=== PATIENT | female | born 1945 | race Caucasian/White ===

== ENCOUNTER 2019-06-12 12:00 | Outpatient (CLI) | payer MEDICARE, SELFPAY ==
[2019-06-12 14:01] LABS: Thyroid Stimulating Hormone < 0.015 uIU/mL (0.465-4.680); Total Triiodothyronine (T3) 1.35 NG/ML (0.97-1.69)
[2019-06-12 14:18] LABS: Free T4 Free Thyroxine 1.38 ng/mL (0.78-2.19)
== END 2019-06-12 12:01 | disposition home or self-care (01) ==
PROVIDERS: PCP Family Medicine
DX: R53.83 Other fatigue (principal)
CPT/HCPCS: 36415; 84439; 84443; 84480

== ENCOUNTER 2019-10-29 09:05 | Outpatient (CLI) | payer MEDICARE, SELFPAY ==
[2019-10-29 10:16] LABS: Hematocrit 34.4 % (37.0-47.0); Hemoglobin 10.7 g/dL (12.0-15.0); Mean Corpuscular HGB Conc 31.1 g/dl (32-36); Mean Corpuscular Hemoglobin 23.4 pg (26-34); Mean Corpuscular Volume 75.3 fl (80-100); Mean Platelet Volume 9.9 fl (7.4-10.4); Platelet Count Result 300 k/mm3 (150-375); Red Blood Count 4.57 M/mm3 (4.2-5.4); Red Cell Distribution Width 13.9 % (11.5-14.5)
[2019-10-29 10:34] LABS: Alanine Aminotransferase 12 U/L (4-35); Alkaline Phosphatase 99 U/L (38-126); Aspartate Amino Transferase 16 U/L (14-36); Bilirubin,Total 0.3 mg/dL (0.2-1.3); Blood Urea Nitrogen 18 mg/dL (7-17); Calcium 9.1 mg/dL (8.4-10.2); Carbon Dioxide 29 mmol/L (22-30); Chloride 103 mmol/L (98-107); Estimated Glomerular Filt Rate > 60; Glucose 105 mg/dL (65-105); Lipase 74 U/L (23-300); Potassium 3.9 mmol/L (3.4-5.0); Sodium 138 mmol/L (137-145)
[2019-11-01 04:24] LABS: Triiodothyronine T3 Free 2.7 pg/mL (2.3-4.2)
== END 2019-10-29 09:06 | disposition home or self-care (01) ==
PROVIDERS: Visit Provider Family Medicine
DX: E05.00 Thyrotoxicosis with diffuse goiter without thyrotoxic crisis or storm (principal); R10.9 Unspecified abdominal pain
CPT/HCPCS: 36415; 80053; 83690; 84481; 85027

== ENCOUNTER 2019-11-20 10:32 | Outpatient (CLI) | payer MEDICARE, SELFPAY ==
[2019-11-20 11:42] LABS: Hematocrit 35.9 % (37.0-47.0); Hemoglobin 11.3 g/dL (12.0-15.0); Mean Corpuscular HGB Conc 31.5 g/dl (32-36); Mean Corpuscular Hemoglobin 23.5 pg (26-34); Mean Corpuscular Volume 74.8 fl (80-100); Platelet Count Result 325 k/mm3 (150-375); Red Cell Distribution Width 13.7 % (11.5-14.5)
[2019-11-20 11:52] LABS: Thyroid Stimulating Hormone < 0.015 uIU/mL (0.465-4.680)
[2019-11-20 12:03] LABS: Iron 51 ug/dL (37-170)
[2019-11-20 12:12] LABS: Percent Iron Saturation 13 % (20-50)
[2019-11-20 12:20] LABS: Free T4 Free Thyroxine 1.19 ng/mL (0.78-2.19)
== END 2019-11-20 10:33 | disposition home or self-care (01) ==
PROVIDERS: PCP Family Medicine; Visit Provider Physician Assistant
DX: D64.9 Anemia, unspecified (principal); E05.00 Thyrotoxicosis with diffuse goiter without thyrotoxic crisis or storm
CPT/HCPCS: 36415; 82728; 83540; 83550; 84439; 84443; 85027

== ENCOUNTER 2020-04-03 09:48 | Outpatient (CLI) | payer MEDICARE, SELFPAY ==
[2020-04-03 10:11] LABS: Hemoglobin 11.3 g/dL (12.0-15.0); Mean Corpuscular HGB Conc 31.4 g/dl (32-36); Mean Corpuscular Volume 76.4 fl (80-100); Mean Platelet Volume 9.9 fl (7.4-10.4); Platelet Count Result 304 k/mm3 (150-375); Red Blood Count 4.71 M/mm3 (4.2-5.4); Red Cell Distribution Width 14.3 % (11.5-14.5); White Blood Count 6.6 K/mm3 (4.5-10.0)
[2020-04-03 10:22] LABS: Hemoglobin A1C 5.4 % (<5.7)
[2020-04-03 10:29] LABS: Alanine Aminotransferase 13 U/L (4-35); Albumin Level 3.9 g/dL (3.5-5.1); Alkaline Phosphatase 95 U/L (38-126); Anion Gap 5 mmol/L (8-16); Aspartate Amino Transferase 21 U/L (14-36); Bilirubin,Total 0.3 mg/dL (0.2-1.3); Blood Urea Nitrogen 14 mg/dL (7-17); Calcium 9.3 mg/dL (8.4-10.2); Carbon Dioxide 33 mmol/L (22-30); Chloride 103 mmol/L (98-107); Cholesterol 166 mg/dL (0-200); Estimated Glomerular Filt Rate > 60; Glucose 107 mg/dL (65-105); HDL Direct 27 mg/dL; Lipase 68 U/L (23-300); Sodium 141 mmol/L (137-145); Triglycerides 133 mg/dL (<150)
[2020-04-03 10:40] LABS: LDL Cholesterol Direct 116 mg/dL
[2020-04-03 11:12] LABS: Vitamin D 25 Hydroxy 47.6 ng/mL
[2020-04-03 11:26] LABS: Thyroid Stimulating Hormone Reflex < 0.015 uIU/mL (0.465-4.68)
[2020-04-03 13:04] LABS: Total Triiodothyronine (T3) 1.55 NG/ML (0.97-1.69)
== END 2020-04-03 09:49 | disposition home or self-care (01) ==
PROVIDERS: PCP Family Medicine; Visit Provider Family Medicine
DX: R73.9 Hyperglycemia, unspecified (principal); E78.2 Mixed hyperlipidemia; E05.90 Thyrotoxicosis, unspecified without thyrotoxic crisis or storm; E55.9 Vitamin D deficiency, unspecified; R10.13 Epigastric pain; I10 Essential (primary) hypertension
CPT/HCPCS: 36415; 80053; 80061; 82306; 83036; 83690; 84439; 84443; 84480; 85027

== ENCOUNTER → 2020-04-05 11:10 | Outpatient (CLI) | payer MEDICARE, SELFPAY ==
--- NOTE | ~2020-04-05 | CT_ITS ---
EXAMINATION: CT abdomen pelvis w con DATE: 04/05/2020 11:57 INDICATION: Epigastric pain TECHNIQUE: Computed tomography (CT) of the abdomen and pelvis was performed with 100 cc Omnipaque 350 intravenous contrast. The dose-length product was 1026.72 mGy-cm. Automated exposure control and ite rative reconstruction technique were employed. COMPARISON: CT dated 01/05/2008. FINDINGS: Heart size normal. No significant pleural or pericardial effusion. There is atherosclerosis of the aorta. Fatty infiltration of the liver. There are gallstones. Small hiatal hernia. There are small subcentim eter hypodensities of the right kidney, too small to characterize, although likely benign. Bowel baldemar dora is nonobstructive. Normal appendix. No significant vascular abnormality. No lymphadenopathy. No f ree air or free fluid. There are changes of ventral abdominal wall hernia repair. Moderate lumbar spo ndylosis. No acute osseous abnormality. IMPRESSION: 1. No acute abdominal abnormality. 2: Small hiatal hernia. 3: Cholelithiasis. 4: Hepatic steatosis. Reviewed, dictated and finalized at location A. MACY TECHNICIAN TRAINEE
[2020-04-05 11:42] LABS: Estimated Glomerular Filt Rate > 60
== END ==
PROVIDERS: PCP Family Medicine; Visit Provider Family Medicine
DX: R10.13 Epigastric pain (principal); K44.9 Diaphragmatic hernia without obstruction or gangrene; K80.20 Calculus of gallbladder without cholecystitis without obstruction; K76.0 Fatty (change of) liver, not elsewhere classified; I25.10 Atherosclerotic heart disease of native coronary artery without angina pectoris
CPT/HCPCS: 74177; Q9967

== ENCOUNTER 2020-05-03 10:51 | Outpatient (CLI) | payer MEDICARE, SELFPAY ==
[2020-05-03 12:40] LABS: Thyroid Stimulating Hormone 0.065 uIU/mL (0.465-4.680)
[2020-05-03 12:46] LABS: Free T4 Free Thyroxine 0.97 ng/mL (0.78-2.19)
[2020-05-06 13:58] LABS: Triiodothyronine T3 Free 2.5 pg/mL (2.3-4.2)
== END 2020-05-03 10:52 | disposition home or self-care (01) ==
PROVIDERS: PCP Family Medicine; Visit Provider Internal Medicine Endocrinology, Diabetes & Metabolism
DX: E05.20 Thyrotoxicosis with toxic multinodular goiter without thyrotoxic crisis or storm (principal)
CPT/HCPCS: 36415; 84439; 84443; 84481

== ENCOUNTER 2020-09-01 13:25 | Outpatient (CLI) | payer MEDICARE, SELFPAY ==
[2020-09-01 15:10] LABS: Free T4 Free Thyroxine 0.98 ng/mL (0.78-2.19)
[2020-09-03 16:58] LABS: Thyroid Stimulating Hormone 0.244 uIU/mL (0.465-4.680)
[2020-09-05 08:16] LABS: Triiodothyronine T3 Free 2.9 pg/mL (2.3-4.2)
== END 2020-09-01 13:26 | disposition home or self-care (01) ==
PROVIDERS: PCP Family Medicine; Visit Provider Internal Medicine Endocrinology, Diabetes & Metabolism
DX: R53.83 Other fatigue (principal); E05.20 Thyrotoxicosis with toxic multinodular goiter without thyrotoxic crisis or storm
CPT/HCPCS: 36415; 84439; 84443; 84481

== ENCOUNTER → 2020-10-28 13:34 | Outpatient (CLI) | payer MEDICARE, SELFPAY ==
--- NOTE | ~2020-10-28 | XR_ITS ---
XR chest 2V 10/28/2020 13:52 Indication: Chest pain Procedure: 2 view chest Comparison: No prior studies for comparison. Findings: Heart size is normal. Right lung clear. There is a nodular density in the left lower lung z one near the pleural margin. No focal pneumonia, edema, effusion or pneumothorax. Impression: 1: Nodular density left lower lung zone. Follow-up CT chest recommended. Reviewed, dictated and finalized at location A. Impression: 1: Nodular density left lower lung zone. Follow-up CT chest recommended.
== END ==
PROVIDERS: PCP Family Medicine; Visit Provider Physician Assistant
DX: R05 Cough (principal); R52 Pain, unspecified; R91.8 Other nonspecific abnormal finding of lung field
CPT/HCPCS: 71046

== ENCOUNTER 2020-11-03 07:29 | Outpatient (CLI) | payer MEDICARE, SELFPAY ==
--- NOTE | ~2020-11-03 | CT_ITS ---
EXAMINATION: CT diagnostic chest w con DATE: 11/03/2020 08:43 INDICATION: R93.89 - Abnormal findings on diagnostic imaging of other specified body structures TECHNIQUE: Computed tomography (CT) of the chest was performed with 100 mL Omnipaque-350 intravenous contrast. Additional 3D reconstructions utilizing coronal maximum intensity projection (MIP) were per formed. Automated exposure control and iterative reconstruction technique were employed. The dose-fabrice gth product was 507.90 mGy-cm. COMPARISON: None FINDINGS: Eventration of the right hemidiaphragm. Calcified right upper lobe nodule consistent with old granulo matous disease. 6-7 mm left lower lobe nodule which is too small and too medial to account for the pr eviously described, likely artifactual opacity on the prior radiographs. No pneumonia, pulmonary kenisha a or pleural effusion. Heart size is normal. No pericardial effusion. Thoracic aorta is normal in dwaine iber with no dissection. No pathologically enlarged thoracic lymphadenopathy. Likely demonstrate mild hypertrophy of the left thyroid lobe with absent right thyroid lobe suggesting prior right thyroidec yannick. Diffuse hepatic steatosis. Couple calcified gallstones within the otherwise normal-appearing ga llbladder. No wall thickening or pericholecystic compression to suggest acute cholecystitis. Hemangio mas at T8 and L2. IMPRESSION: 1. Indeterminate 6-7 mm left lower lobe nodule. Recommend 6-12 month follow-up low-dose noncontrast c hest CT. 2. Cholelithiasis. 3. Diffuse hepatic steatosis. Reviewed, dictated and finalized at location A. IMPRESSION: 1. Indeterminate 6-7 mm left lower lobe nodule. Recommend 6-12 month follow-up low-dose noncontrast chest CT. 2. Cholelithiasis. 3. Diffuse hepatic steatosis.
[2020-11-03 08:29] LABS: Estimated Glomerular Filt Rate > 60
== END 2020-11-03 07:30 | disposition home or self-care (01) ==
LOC: ANHIMG 07:31
PROVIDERS: PCP Family Medicine; Visit Provider Physician Assistant
DX: R93.89 Abnormal findings on diagnostic imaging of other specified body structures (principal); K80.20 Calculus of gallbladder without cholecystitis without obstruction; K76.0 Fatty (change of) liver, not elsewhere classified; R91.8 Other nonspecific abnormal finding of lung field
CPT/HCPCS: 71260; Q9967

== ENCOUNTER → 2020-11-13 11:19 | Outpatient (CLI) | payer MEDICARE, SELFPAY ==
--- NOTE | ~2020-11-13 | MR_ITS ---
EXAMINATION: MR shoulder LT wo con DATE: 11/13/2020 12:33 INDICATION: Left shoulder pain and weakness. TECHNIQUE: Magnetic resonance imaging (MRI) of the left shoulder was performed without intravenous co ntrast. Sequences included axial PD-weighted FS FSE, coronal oblique PD-weighted FS FSE and T2-weight ed FS FSE, and sagittal oblique T2-weighted FS FSE and T1-weighted FSE. COMPARISON: None. FINDINGS: Coracoacromial arch: The acromion undersurface is curved in morphology (type II). There is severe acromioclavicular joint osteoarthritis. There is mild subacromial/subdeltoid bursitis. Rotator cuff: There is a full-thickness tear of supraspinatus and infraspinatus tendons measuring 2.0 cm anterior t o posterior by 2.5 cm proximal to distal. Teres minor tendon is normal. There is moderate subscapular is tendinopathy. There is mild fatty atrophy of the rotator cuff muscle bellies, worst in infraspinat us. Biceps tendon and glenoid labrum: Biceps tendon is in bicipital groove. There is mild biceps tendinopathy. The glenoid labrum is intact . Fluid: There is a small glenohumeral joint effusion. Bones/cartilage: There is superior subluxation of the humeral head with narrowing of the subacromial space. There is c artilage surface irregularity of glenoid. There is deep partial-thickness cartilage loss of humeral h ead superomedially. Osteophytes are noted. IMPRESSION: 1. Full-thickness rotator cuff tear. 2. Moderate glenohumeral joint chondrosis. 3. Severe acromioclavicular joint osteoarthritis. 4. Mild intra-articular biceps tendinopathy. 5. Small glenohumeral joint effusion and moderate subacromial/subdeltoid bursitis. Reviewed, dictated and finalized at location A. IMPRESSION: 1. Full-thickness rotator cuff tear. 2. Moderate glenohumeral joint chondrosis. 3. Severe acromioclavicular joint osteoarthritis. 4. Mild intra-articular biceps tendinopathy. 5. Small glenohumeral joint effusion and moderate subacromial/subdeltoid bursit is.
== END ==
PROVIDERS: PCP Family Medicine; Visit Provider Orthopaedic Surgery
DX: M75.102 Unspecified rotator cuff tear or rupture of left shoulder, not specified as traumatic (principal); M19.012 Primary osteoarthritis, left shoulder; M25.412 Effusion, left shoulder
CPT/HCPCS: 73221

== ENCOUNTER 2022-03-18 12:13 | Outpatient (CLI) | payer MEDICARE, SELFPAY ==
--- NOTE | ~2022-03-18 | MM_ITS ---
EXAMINATION: MM screening edwardo BI w robbie HISTORY: Screening mammogram TECHNIQUE: Craniocaudal and mediolateral oblique 3-D tomosynthesis images were obtained and synthetic 2-D images were generated. CAD analysis was submitted and interpreted. COMPARISON: 09/26/2018, 12/23/2015 bilateral screening mammogram examinations BREAST PARENCHYMAL COMPOSITION: FINDINGS: There is no evidence of suspicious mass, calcification, or architectural distortion to sugg est malignancy in either breast. There has been no suspicious interval change. IMPRESSION: 1. No mammographic evidence of malignancy. 2. Recommend routine screening mammography in one year. BI-RADS Category 1: Negative Reviewed, dictated and finalized at location A. ARATION OPERATOR
--- NOTE | ~2022-03-18 | DEXA_ITS ---
Bone Density Report Name: DEB CASTRO Age: 76 Sex: Female Ethnicity: White Date of : 1945 Indication: postmenopausal; screening for osteoporosis; height loss; asthma or emphysema; Referring Provider: REINA HARRIS Study: Bone densitometry was performed. Exam Date: March 18, 2022 Accession number: [id number] Bone Density: Region BMD T-score Z-score Classification AP Spine(L1-L4) 1.079 0.3 2.7 Normal Femoral Neck (Left) 0.679 -1.5 0.5 Osteopenia Total Hip (Left) 0.891 -0.4 1.3 Normal Femoral Neck (Right) 0.653 -1.8 0.3 Osteopenia Total Hip (Right) 0.808 -1.1 0.7 Osteopenia Total Hip Mean 0.850 -0.8 1.0 Normal World Health Organization criteria for BMD impression classify patients as: Normal (T-score at or above -1.0), Osteopenia (T-score between -1.0 and -2.5), or Osteoporosis (T-score at or below -2.5). 10-year Fracture Risk(1): Major Osteoporotic Fracture 10% Hip Fracture 2.0% Reported Risk Factors: [place] (), Neck BMD=0.653, BMI=42.3 (1) FRAX(R) Version 3.08. Fracture probability calculated for an untreated patient. Fracture probability may be lower if the patient has received treatment. Clinical Information Provided by Patient: Has used the following medications: Vitamin D, Calcium Has the following medical conditions: Asthma or Emphysema Patient maximum height was 62 Menopause Age: 59 No regular weight bearing exercise Drinks caffeinated beverages Onset of menses at age 11 Number of children 2 Impression: The patient has low bone mass, based on the Right Femoral Neck T-score. The patient has an estimated ten-year risk of hip fracture of 2% and an estimated ten-year risk of major fracture of 10%, based on the WHO FRAX algorithm. Discussion: BONE DENSITY IS LOW AT ONE OR MORE SKELETAL SITES. This patient's lowest T-score is low at one or more skeletal sites. It meets the World Health Organization's (WHO) criteria for ?low bone mass? (T-score between -1.0 and -2.5). The patient's 10-year risk of fracture as calculated by FRAX is less than the threshold where pharmacological therapy is recommended by the National Osteoporosis Foundation (NOF). However, all treatment decisions require clinical judgment and consideration of individual patient factors, including patient preferences, comorbidities, previous drug use, risk factors not captured in the FRAX model (e.g., frailty, falls, vitamin D deficiency, increased bone turnover, interval significant decline in bone density) and possible under or overestimation of fracture risk by FRAX. The patient should follow a healthful lifestyle (good nutrition with adequate calcium and vitamin D, and appropriate weight-bearing exercise). Follow-Up: Consider repeating this study in 2 to 3 years to reassess this p
== END 2022-03-18 12:14 | disposition home or self-care (01) ==
PROVIDERS: PCP Family Medicine; Visit Provider Family Medicine
DX: Z12.31 Encounter for screening mammogram for malignant neoplasm of breast (principal); Z78.0 Asymptomatic menopausal state; M85.852 Other specified disorders of bone density and structure, left thigh; M85.851 Other specified disorders of bone density and structure, right thigh
CPT/HCPCS: 77063; 77067; 77080

== ENCOUNTER 2022-07-24 14:04 | Emergency (ER) | payer MEDICARE, SELFPAY ==
--- NOTE | 2022-07-24 14:12 | ED.GENADULT ---
HPI - General Adult General Chief complaint: Upper Respiratory Infection Stated complaint: cough,congestion,headache,bodyaches Source: patient and RN notes reviewed History of Present Illness HPI narrative: 76 yo female presents to urgent care complaints cough, headache, tickling in throat and chest, facial pressure, and body aches. Patient states the cough started on Sunday and the cough is her worst complaint. Patient states she might have had some chills last night. Denies any fevers. Patient states that the tickling in her throat is what is making her cough. Denies any chest pain or shortness of breath. Patient has taken [id number] cold medication as well as Tylenol with moderate relief. Some parts of this dictation were generated by voice recognition software and may contain typographical and/or grammatical inaccuracies. Related Data Home Medications Medication Instructions Recorded Confirmed methimazole 10 mg tablet (Tapazole) 10 mg PO DAILY 10/28/20 07/24/22 calcium carbonate 500 mg calcium 500 mg PO DAILY 12/19/21 07/24/22 (1,250 mg) chewable tablet (Calcium 500) celecoxib 100 mg capsule (Celebrex) 100 mg PO BID 12/19/21 07/24/22 cholecalciferol (vitamin D3) 25 25 mcg PO DAILY 12/19/21 07/24/22 mcg (1,000 unit) capsule acetaminophen 650 mg 650 mg PO BID 07/24/22 07/24/22 tablet,extended release semaglutide (weight loss) 0.5 0.5 mg subcut WEEKLY 07/24/22 07/24/22 mg/0.5 mL subcutaneous pen injector (Wegovy) Allergies Allergy/AdvReac Type Severity Reaction Status Date / Time prochlorperazine Allergy Mild Jittery Verified 07/24/22 14:13 indomethacin Allergy Unknown Nausea, Verified 07/24/22 14:13 HEADACHE Review of Systems Review of Systems: CONSTITUTIONAL: chills EYES: Denies visual changes, redness, or discharge. ENT: facial pressure CARDIOVASCULAR: Denies chest pain, palpitations, or edema. RESPIRATORY: cough GASTROINTESTINAL: nausea GENITOURINARY: Denies dysuria or hematuria. SKIN: Denies rash or itching. MUSCULOSKELETAL: myalgia. NEUROLOGIC: headache [facility] Past Medical History Medical History Essential (primary) hypertension Hx of malignant neoplasm of colon Hyperlipidemia, unspecified Hyperthyroidism Lymphedema Mild persistent asthma without complication Obstructive sleep apnea Pulmonary nodule Surgical History Surgical History H/O eye surgery Hx of section Hx of hernia repair Hx of hysterectomy Family History Family History Mother Asthma Social History Social History (Updated 04/17/22 @ 09:14 by Jaquelin Crockett [facility]) Smoking status: Never smoker Second hand tobacco smoke exposure: No Alcohol intake: never Substance use: unknown Substance use type: does not use Lack of Transportation: No Lack of Food: Never True Current Housing: I Have Housing Concerned About Future Housing: No Difficulty Paying Gas/Electric Bills: No Difficulty Paying for Meds: No Currently Unemployed: YES Education: Master's Degree or Higher Difficulty w/ Childcare or Family Care: No Living arrangements: with family Occupation/Education: retired Gender identity (if verbalized by the patient): Female Sexual Orientation (if Verbalized by the Patient): Straight or Heterosexual Spiritual care concerns: No Agree to blood products: Yes Comments At the time of my signature, I reviewed and agree with the nursing past medical, surgical, social, and family history. There is no relevant family history pertinent to the patient complaint. Exam Narrative: GENERAL: This is a well-nourished, well-developed patient, in no apparent distress. HEAD: normocephalic, atraumatic. EYES: PERRL. Sclera clear/white. Vision is grossly intact. EARS: External ears normal,
[2022-07-24 14:18] VITALS: BP 180/87; PULSE 104; RESP 20; TEMP 37.3; O2SAT 96
== END 2022-07-24 14:59 | disposition home or self-care (01) ==
PROVIDERS: Emergency Provider Nurse Practitioner Family; PCP Family Medicine
DX: U07.1 COVID-19 (principal); I10 Essential (primary) hypertension; E78.5 Hyperlipidemia, unspecified; Z85.038 Personal history of other malignant neoplasm of large intestine
CPT/HCPCS: 87426; 87804; 99213; C9803; G0463

== ENCOUNTER 2023-08-24 12:54 | Emergency (ER) | payer MEDICARE, SELFPAY ==
--- NOTE | ~2023-08-24 | XR_ITS ---
XR chest 2V 08/24/2023 13:18 Indication: Shortness of breath Procedure: 2 view chest Comparison: No prior studies for comparison. Findings: Heart size normal. No focal air space disease, pulmonary edema, pleural effusion or suspect ed pneumothorax. There are calcified granulomas. There is mild thoracic spondylosis. Impression: 1: No acute cardiopulmonary disease. Reviewed, dictated and finalized at location A. Impression: 1: No acute cardiopulmonary disease.
--- NOTE | 2023-08-24 12:59 | ED.GENADULT ---
HPI - General Adult General Chief complaint: Upper Respiratory Infection Stated complaint: Short Of Breath/Fatigue/Vomiting Source: patient, RN notes reviewed and old records reviewed Mode of arrival: ambulatory Limitations: no limitations History of Present Illness HPI narrative: 77-year-old female presents to [facility] with complaints of shortness of breath, feeling like heart is skipping beats, and burning in nose. Patient states on Sunday she ate out and then had vomiting for the rest of the evening. Patient denies any vomiting since. Patient states that on Sunday started having general malaise with shortness of breath and heart palpitations patient denies cough, congestion patient states took a home COVID test was negative. Related Data Home Medications Medication Instructions Recorded Confirmed methimazole 10 mg tablet (Tapazole) 10 mg PO DAILY 10/28/20 07/20/23 calcium carbonate (Calcium 500) 500 mg PO DAILY 12/19/21 07/20/23 celecoxib 100 mg capsule (Celebrex) 100 mg PO BID 12/19/21 07/20/23 cholecalciferol (vitamin D3) 25 25 mcg PO DAILY 12/19/21 07/20/23 mcg (1,000 unit) capsule acetaminophen 650 mg 650 mg PO BID 07/24/22 07/20/23 tablet,extended release Allergies Allergy/AdvReac Type Severity Reaction Status Date / Time prochlorperazine Allergy Mild Jittery Verified 07/20/23 09:58 indomethacin Allergy Unknown Nausea, Verified 07/20/23 09:58 HEADACHE Review of Systems Constitutional: Constitutional: Reports no additional constitutional complaints, Denies body ache(s), Denies chills, Reports fatigue, Denies fever(s) and Denies headache(s) Eyes: Eyes: Reports no additional eye complaints and Denies blurry vision ENT: Reports system reviewed and no additional complaints, except as documented, Denies vertigo, Denies dizziness, Denies ear discharge, Denies otalgia, Denies facial pain, Denies headache(s), Denies nasal congestion, Denies nasal discharge, Denies sinus pain, Denies sinus pressure and Denies sore throat Comments: burning in nose Cardiovascular: Cardiovascular: Reports no additional cardiovascular complaints, Denies chest pain, Denies chest pain at rest, Denies rapid heart rate and Reports dyspnea Respiratory: Respiratory: Reports no additional respiratory complaints, Denies chest congestion, Denies cough, Denies pain on inspiration, Denies pain with cough and Reports dyspnea Gastrointestinal: Gastrointestinal: Denies abdominal pain, Denies diarrhea, Denies nausea and Reports vomiting Integumentary/Breasts: Skin/Breast: Denies rash Neurologic: Reports system reviewed and no additional complaints, except as documented, Denies vertigo, Denies dizziness and Denies headache(s) Endocrine: Endocrine: Denies fatigue PMFSH Past Medical History Medical History Essential (primary) hypertension Hx of malignant neoplasm of colon Hyperlipidemia, unspecified Hyperthyroidism Lymphedema Mild persistent asthma without complication Obstructive sleep apnea Pulmonary nodule Surgical History Surgical History H/O eye surgery Hx of section Hx of hernia repair Hx of hysterectomy Family History Family History Mother Asthma Social History Social History Smoking status: Never smoker Second hand tobacco smoke exposure: No Alcohol intake: never Substance use: unknown Substance use type: does not use Lack of Transportation: No Lack of Food: Never True Current Housing: I Have Housing Concerned About Future Housing: No Difficulty Paying Gas/Electric Bills: No Difficulty Paying for Meds: No Currently Unemployed: YES Education: Master's Degree or Higher Difficulty w/ Childcare or Family Care: No Living arrangements: with family Occupati
[2023-08-24 13:04] VITALS: BP 154/70; PULSE 72; RESP 16; TEMP 36.8; O2SAT 99
--- NOTE | 2023-08-24 13:09 | ECG_ITS ---
SEE SCANNED COPY FOR CONFIRMED REPORT MTDD
== END 2023-08-24 13:54 | disposition home or self-care (01) ==
PROVIDERS: Emergency Provider Registered Nurse; PCP Family Medicine
DX: B34.9 Viral infection, unspecified (principal); Z20.822 Contact with and (suspected) exposure to COVID-19; I10 Essential (primary) hypertension; E78.5 Hyperlipidemia, unspecified; E05.90 Thyrotoxicosis, unspecified without thyrotoxic crisis or storm; J45.909 Unspecified asthma, uncomplicated; Z85.038 Personal history of other malignant neoplasm of large intestine
CPT/HCPCS: 71046; 87426; 93005; 99213; G0463

== ENCOUNTER 2023-09-30 12:41 | Inpatient (IN) | payer MEDICARE, SELFPAY ==
[2023-09-30] VITALS (16 sets, daily range): BP systolic 70–211; BP diastolic 39–100; PULSE 78–110; RESP 16–19; TEMP 36.4–37.3; O2SAT 96–98; BMI 34.2
--- NOTE | ~2023-09-30 | XR_ITS ---
EXAMINATION: XR sm bowel follow through DATE: 10/01/2023 14:27 INDICATION: Small bowel obstruction. TECHNIQUE: Oral contrast was administered, and a time course of radiographs of the abdomen was obtain ed. Fluoroscopy of the small bowel was not performed. Fluoroscopy exposure time was 0 minutes. The to estefany number of images was 5. COMPARISON: CT abdomen and pelvis 09/30/2023 FINDINGS: The nasogastric tube tip is in the stomach. There are gallstones in the gallbladder. There are multip le dilated loops of small bowel. There are surgical clips from a ventral hernia repair. Transit time from the stomach to proximal colon was approximately 45 minutes. IMPRESSION: 1. Dilated small bowel with prompt passage of contrast to the colon, consistent with adynamic ileus v ersus partial small bowel obstruction. Reviewed, dictated and finalized at location A. IMPRESSION: 1. Dilated small bowel with prompt passage of contrast to the colon, consistent with adynamic ileus versus partial small bowel obstruction.
--- NOTE | ~2023-09-30 | XR_ITS ---
EXAMINATION: XR abdomen obstructive series DATE: 10/01/2023 10:20 INDICATION: Small bowel obstruction. TECHNIQUE: Upright and supine views of the abdomen on 3 radiographs were obtained. COMPARISON: CT abdomen pelvis 09/30/2023 FINDINGS: There are dilated loops of small bowel. The colon is decompressed. No free intraperitoneal gas. The nasogastric tube tip is in the stomach. There are gallstones in the gallbladder. There are s urgical clips from ventral hernia repair. There is eventration of right hemidiaphragm. IMPRESSION: 1. Small bowel obstruction. Reviewed, dictated and finalized at location A. IMPRESSION: 1. Small bowel obstruction.
--- NOTE | ~2023-09-30 | CT_ITS ---
EXAMINATION: CT abdomen pelvis w con DATE: 09/30/2023 15:36 INDICATION: abdominal pain TECHNIQUE: Computed tomography (CT) of the abdomen and pelvis was performed with 100 mL Omnipaque-350 intravenous contrast. Automated exposure control and iterative reconstruction technique were employe d. The dose-length product was 856.33 mGy-cm. COMPARISON: 04/05/2020. FINDINGS: Lower thorax: Minimal bibasilar scar/atelectasis. Mitral calcification. Liver: Normal. Biliary/Gallbladder: Cholelithiasis. No inflammatory changes. No bile duct dilation. Pancreas: Mild atrophy. Spleen: Normal. Adrenals:No mass. Kidneys: No suspicious mass, obstructing stone, or hydronephrosis. Hyperdense right midpole cysts, st able over 4 years, likely proteinaceous cysts. Subcentimeter left renal hypodensities too small to ch aracterize but most likely represent cysts. GI tract: Small hiatal hernia. Mild gastric distention. Multiple loops of dilated small bowel, transi tion point in the mid abdomen (axial image 143/201). Uniform bowel wall enhancement. No pneumatosis. No interloop fluid. Normal appendix. Mesentery/Peritoneum: No ascites, mass, or free air. Retroperitoneum: No mass. Atherosclerotic abdominal aortic and/or arterial calcifications. Pelvis: Empty urinary bladder. Absent uterus. Ovaries not confidently visualized. Soft Tissues: Soft tissues and body wall unremarkable. Changes of prior ventral hernia repair. Bones: No acute osseous finding. IMPRESSION: Mid small bowel obstruction, likely secondary to adhesion. Reviewed, dictated and finalized at location K.
--- NOTE | ~2023-09-30 | XR_ITS ---
EXAM: XR abdomen gastric tube insert DATE: 09/30/2023 18:41 HISTORY: NG tube placement . COMPARISON: CT abdomen pelvis same date. FINDINGS: Right hemidiaphragm elevation. NG tube, tip and side port project over the expected locatio n of the stomach. Multiple loops of dilated small bowel in the upper abdomen. Gallstones. IMPRESSION: NG tube, in good position. Reviewed, dictated and finalized at location K. IMPRESSION: NG tube, in good position.
--- NOTE | 2023-09-30 12:49 | ECG_ITS ---
SEE SCANNED COPY FOR CONFIRMED REPORT MTDD
[2023-09-30] MEDS: SODIUM CHLORIDE 0.9% IV 1,000 ML 999 ML IV CONT (13:01)
[2023-09-30 13:06] LABS: Basophils Percent Auto 0.2 % (0.2-1.2); Eosinophils Percent Auto 0.3 % (0-4.4); Hematocrit 40.4 % (37.0-47.0); Hemoglobin 13.2 g/dL (12.0-15.0); Immature Granulocyte Absolute 0.06 K/mm3 (0.00-0.031); Immature Granulocyte Percent A 0.4 % (0-0.5); Immature Platelet Fraction Pct 2.4 % (0.9-11.2); Lymphocytes Absolute Auto 1.28 K/mm3 (0.9-3.2); Lymphocytes Percent Auto 8.7 % (18.3-44.2); Mean Corpuscular HGB Conc 32.7 g/dl (32-36); Mean Corpuscular Hemoglobin 26.1 pg (26-34); Mean Corpuscular Volume 79.8 fl (80-100); Monocytes Absolute Auto 0.6 K/mm3 (0.1-0.6); Monocytes Percent Auto 3.8 % (2.6-8.5); Neutrophils Absolute Auto 12.8 K/mm3 (1.3-6.7); Neutrophils Percent Auto 86.6 % (45.5-73.1); Platelet Count Result 311 k/mm3 (150-375); Red Blood Count 5.06 M/mm3 (4.2-5.4); Red Cell Distribution Width 13.5 % (11.5-14.5); White Blood Count 14.7 K/mm3 (4.5-10.0)
[2023-09-30 13:24] LABS: Alanine Aminotransferase 14 U/L (6-35); Albumin Level 4.5 g/dL (3.5-5.1); Alkaline Phosphatase 125 U/L (38-126); Anion Gap 10 mmol/L (4-12); Aspartate Amino Transferase 29 U/L (14-36); Bilirubin,Total 0.8 mg/dL (0.2-1.3); Blood Urea Nitrogen 27 mg/dL (7-17); Calcium 9.6 mg/dL (8.4-10.2); Carbon Dioxide 26 mmol/L (22-30); Chloride 104 mmol/L (98-107); Estimated CRCL calculation 44 ml/min; Estimated Glomerular Filt Rate > 60; Glucose 123 mg/dL (65-110); Potassium 4.4 mmol/L (3.4-5.0); Sodium 140 mmol/L (137-145)
[2023-09-30 13:34] LABS: Troponin I 0.012 ng/mL (0.000-0.034)
[2023-09-30 14:45] LABS: Appearance Urine Cloudy (Clear); Bacteria Urine 2+ /hpf; Bilirubin Urine Negative (Negative); Blood Urine Non-Hemolyzed Trace (Negative); Color Urine Yellow (Yellow); Glucose Urine UA Negative (Negative); Ketones Urine Negative (Negative); Leukocyte Esterase Ur 2+ LEU/UL (Negative); Mucus Urine Present /lpf; Need Manual Microscopic Reviewed; Nitrate Urine Negative (Negative); Non Pathogenic Casts >20; Protein Urine 2+ mg/dL (Negative); Specific Grav Ur 1.016 (1.001-1.035); Squamous Epithelial Cell Urine Many /hpf (Few); Urobilinogen Urine 0.2 mg/dL (<2.0)
[2023-09-30 14:47] LABS: Add Urine Microscopic? YES
--- NOTE | 2023-09-30 15:58 | ECG_ITS ---
SEE SCANNED COPY FOR CONFIRMED REPORT. MTDD
[2023-09-30] MEDS: ONDANSETRON INJ 4 MG/2 ML VIAL IV PUSH (16:24)
--- NOTE | 2023-09-30 16:58 | ED.SYNCOPE ---
HPI - Syncope General Chief Complaint: Syncope Stated Complaint: syncope, N/V/D Source: patient Mode of arrival: EMS Limitations: no limitations History of Present Illness HPI narrative: 78-year-old with a history of hypertension, hyperlipidemia here with a complaint of near syncopal episode. Patient states that she ate a lot yesterday while watching the car nose came by and the night she started having upset stomach followed by nausea and vomiting. Hours she was able to sleep in the night and when she woke up this morning she continued to feel nauseated. Patient states that when she was trying to vomit she had a near syncopal episode. Patient denied any chest pain or shortness of breath. MD complaint: felt faint Prodromal symptoms: nausea/vomiting Injuries sustained associated with event: none Current symptoms: nausea Related Data Home Medications Medication Instructions Recorded Confirmed methimazole 10 mg tablet (Tapazole) 10 mg PO DAILY 10/28/20 07/20/23 calcium carbonate (Calcium 500) 500 mg PO DAILY 12/19/21 07/20/23 cholecalciferol (vitamin D3) 25 25 mcg PO DAILY 12/19/21 07/20/23 mcg (1,000 unit) capsule acetaminophen 650 mg 650 mg PO BID 07/24/22 07/20/23 tablet,extended release Allergies Allergy/AdvReac Type Severity Reaction Status Date / Time prochlorperazine Allergy Mild Jittery Verified 09/30/23 12:52 indomethacin Allergy Unknown Nausea, Verified 09/30/23 12:52 HEADACHE Review of Systems Review of Systems: All systems reviewed & are unremarkable except as noted in HPI and below Constitutional: Constitutional: Reports no additional constitutional complaints Eyes: Eyes: Reports no additional eye complaints ENT: Reports system reviewed and no additional complaints, except as documented Cardiovascular: Cardiovascular: Reports no additional cardiovascular complaints Respiratory: Respiratory: Reports no additional respiratory complaints Gastrointestinal: Gastrointestinal: Reports nausea Neurologic: Reports system reviewed and no additional complaints, except as documented Endocrine: Endocrine: Reports no additional endocrine complaints PMFSH Past Medical History Medical History Essential (primary) hypertension Hx of malignant neoplasm of colon Hyperlipidemia, unspecified Hyperthyroidism Lymphedema Mild persistent asthma without complication Obstructive sleep apnea Pulmonary nodule Surgical History Surgical History H/O eye surgery Hx of section Hx of hernia repair Hx of hysterectomy Family History Family History Mother Asthma Social History Social History Smoking status: Never smoker Second hand tobacco smoke exposure: No Alcohol intake: never Substance use: unknown Substance use type: does not use Lack of Transportation: No Lack of Food: Never True Current Housing: I Have Housing Concerned About Future Housing: No Difficulty Paying Gas/Electric Bills: No Difficulty Paying for Meds: No Currently Unemployed: YES Education: Master's Degree or Higher Difficulty w/ Childcare or Family Care: No Living arrangements: with family Occupation/Education: retired Gender identity (if verbalized by the patient): Female Sexual Orientation (if Verbalized by the Patient): Straight or Heterosexual Spiritual care concerns: No Agree to blood products: Yes Exam Narrative: GENERAL: Well-appearing, well-nourished, and in no acute distress. HEAD: Normocephalic, atraumatic. EYES: PERRLA and EOMI. ENT: Nares clear, no rhinorrhea or epistaxis. Mucous membranes moist. NECK: Supple. CHEST: Clear to auscultation. No respiratory distress. HEART: Regular rate and rhythm. No murmur heard. Normal peripheral pulses. ABDOMEN: Soft, mil
[2023-09-30 17:05] LABS: Troponin I 0.121 ng/mL (0.000-0.034)
[2023-09-30 17:59] LABS: Lactic Acid Reflex 0.7 mmol/L (0.7-2.0)
--- NOTE | 2023-09-30 18:10 | PM.IMHP ---
H&P: HPI History of Present Illness Date/Time: 09/30/23 18:10 Chief Complaint: Nausea, vomiting, syncope. Narrative: This is a 78-year-old female with history of hypertension, hyperthyroidism, dyslipidemia, sleep apnea, and other comorbidities who presented to the emergency department via EMS from home for evaluation of nausea, vomiting, and syncope. The patient provides the following history. Last evening after dinner her stomach was upset and she reports having several episodes of nonbloody and nonbilious emesis. She was able to sleep throughout the night but when she got up this morning she was still nauseated and she went to the bathroom to try to vomit. She reports having several loose stools and while on the toilet her nausea intensified, she began to feel lightheaded and sweaty, and she had a strong pounding sensation in her chest. With further questioning she reports having intermittent discomfort in the left anterior chest which she has attributed to the fact that she has a torn left rotator cuff. She denies fever, hematemesis, melena, hematochezia, exertional chest pain, pleuritic pain, palpitations, lower extremity edema, and calf pain. In the ED: She was afebrile on arrival. Blood pressure dropped from 137/54 to 70/39 on orthostatic vital check. Labs were significant for WBC count of 14.7, hemoglobin 13.2, BUN 27, lactic acid 0.7, troponin 0.012. Urine was positive for 2+ protein, 2+ leukocyte esterase, 6 to 10 RBC, 6 to 10 WBC, 2+ bacteria, many squamous cells, and greater than [address] of the abdomen and pelvis showed mid small-bowel obstruction, likely secondary to adhesion. NG tube was inserted and she is being admitted in this setting for further treatment and evaluation. Review of Systems Review of Systems: 12 systems were reviewed and are negative except for as per HPI. [facility] Past Medical History Medical History Colon cancer Essential hypertension Hyperlipidemia Hyperthyroidism Lymphedema Mild persistent asthma without complication Obstructive sleep apnea Pulmonary nodule Surgical History Surgical History History of cataract extraction History of section History of colonoscopy with polypectomy Malignant polyp completely removed. History of hysterectomy History of inguinal hernia repair History of tonsillectomy Family History Family History Mother Asthma Chronic obstructive pulmonary disease Father Chronic obstructive pulmonary disease Sibling Coronary artery disease Hx of CABG Sibling Lupus Social History Social History Social History: Surrogate medical decision maker: Alok (spouse) or Alessandro (son) Cresencio. Code status: Full code. Smoking status: Never smoker Second hand tobacco smoke exposure: Yes (As a child) Alcohol intake: never Substance use: never Substance use type: does not use Do You Feel Safe in your Home?: Yes Lack of Transportation: No Lack of Food: Never True Current Housing: I Have Housing Concerned About Future Housing: No Difficulty Paying Gas/Electric Bills: No Difficulty Paying for Meds: No Currently Unemployed: No Education: Master's Degree or Higher Difficulty w/ Childcare or Family Care: No Living arrangements: with family Occupation/Education: retired Spiritual care concerns: No Agree to blood products: Yes Meds Home Medications and Allergies Home Medications Medication Instructions Recorded Confirmed Type methimazole 10 mg tablet (Tapazole) See Rx Instructions .Route .COMPLEX 10/28/20 09/30/23 History albuterol sulfate 90 mcg/actuation 1 inh inhalation Q4H PRN shortness 12/19/21 09/30/23 Rx aerosol inhaler of breath or wheezing #8.5 grams calcium carbonate (Calcium 500) 5
[2023-09-30] MEDS: PIPERACILLN/TAZ 3.375GM/NS50ML 3.375 GM/50 ML BAG IVPB (18:34)
--- NOTE | 2023-09-30 19:06 | PC.NURSE ---
This patient, Sarah Dupont, was admitted to IMU Room 205-01. Patient/family oriented to hospital policies and general routines including ID bracelet, bed and alarms, visiting hours, pain management, procedures, bathroom and other care routines, personal items, smoking policy, room service/diet, and visiting hours. in room, pt amb to restroom, NG to Low/int suction Information on how to activate the Rapid Response Team has been discussed. Patient/Family are encouraged to report perceived risks to care and to ask questions if they do not understand what they are told or what they should do.
--- NOTE | 2023-09-30 19:26 | ADMGEN ---
This patient, Sarah Dupont, was admitted to IMU Room 205-01 on 09/30/23 at 1850. Patient/family oriented to hospital policies and general routines including ID bracelet, bed and alarms, visiting hours, pain management, procedures, bathroom and other care routines, personal items, smoking policy, room service/diet, and visiting hours. Information on how to activate the Rapid Response Team has been discussed. Patient/Family are encouraged to report perceived risks to care and to ask questions if they do not understand what they are told or what they should do.
[2023-09-30] MEDS: SODIUM CHLORIDE 0.9% IV 1,000 ML 125 ML IV CONT (19:57)
[2023-09-30] MEDS: PHENOL/SOD PHENO SPRAY CHERRY (*BKC) 1 SPRAY MUCOUS MEM (22:20)
[2023-09-30] MEDS: HYDROmorphone HCL INJ (*CRX) 1 MG/ML SYR 0.5 MG IV PUSH (23:39)
[2023-10-01] VITALS (22 sets, daily range): BP systolic 129–182; BP diastolic 58–75; PULSE 85–111; RESP 16–20; TEMP 36.3–36.9; O2SAT 95–98
[2023-10-01 00:08] LABS: Troponin I 0.203 ng/mL (0.000-0.034)
[2023-10-01] MEDS: ENOXAPARIN 80 MG/0.8 ML SYRINGE SUB-Q (01:19)
[2023-10-01 04:45] LABS: Basophils Percent Auto 0.3 % (0.2-1.2); Eosinophils Absolute Auto 0.2 K/mm3 (0-0.3); Eosinophils Percent Auto 1.8 % (0-4.4); Hemoglobin 12.1 g/dL (12.0-15.0); Immature Granulocyte Absolute 0.03 K/mm3 (0.00-0.031); Immature Granulocyte Percent A 0.3 % (0-0.5); Lymphocytes Absolute Auto 2.32 K/mm3 (0.9-3.2); Lymphocytes Percent Auto 25.1 % (18.3-44.2); Mean Corpuscular HGB Conc 31.8 g/dl (32-36); Mean Corpuscular Hemoglobin 25.9 pg (26-34); Mean Corpuscular Volume 81.4 fl (80-100); Mean Platelet Volume 10.3 fl (7.4-10.4); Monocytes Absolute Auto 0.5 K/mm3 (0.1-0.6); Monocytes Percent Auto 5.3 % (2.6-8.5); Neutrophils Absolute Auto 6.2 K/mm3 (1.3-6.7); Neutrophils Percent Auto 67.2 % (45.5-73.1); Platelet Count Result 287 k/mm3 (150-375); Red Blood Count 4.67 M/mm3 (4.2-5.4); Red Cell Distribution Width 13.5 % (11.5-14.5); White Blood Count 9.2 K/mm3 (4.5-10.0)
[2023-10-01 04:56] LABS: Anion Gap 10 mmol/L (4-12); Blood Urea Nitrogen 20 mg/dL (7-17); Calcium 9.1 mg/dL (8.4-10.2); Carbon Dioxide 23 mmol/L (22-30); Chloride 108 mmol/L (98-107); Estimated CRCL calculation 49 ml/min; Estimated Glomerular Filt Rate > 60; Glucose 97 mg/dL (65-110); Potassium 3.2 mmol/L (3.4-5.0); Sodium 141 mmol/L (137-145)
[2023-10-01 05:20] LABS: Troponin I 0.146 ng/mL (0.000-0.034)
[2023-10-01 05:27] LABS: Thyroid Stimulating Hormone Reflex < 0.015 uIU/mL (0.465-4.68)
[2023-10-01 06:02] LABS: Free T4 Free Thyroxine Reflex 1.11 ng/dL (0.78-2.19)
[2023-10-01] MEDS: SODIUM CHLORIDE 0.9% IV 1,000 ML 80 ML IV CONT (06:17)
[2023-10-01 08:28] LABS: Total Triiodothyronine (T3) 1.48 NG/ML (0.97-1.69)
[2023-10-01] MEDS: PANTOPRAZOLE SODIUM IV 40 MG VIAL IV PUSH (09:09)
[2023-10-01] MEDS: prednisoLONE ACETATE 1% OPHTH 5 ML 1 DROP EACH EYE (09:09)
[2023-10-01] MEDS: POTASSIUM CHLORIDE INJ 40 MEQ in SODIUM CHLORIDE 0.9% IV 500 ML 130 MEQ IVPB (12:09)
--- NOTE | 2023-10-01 13:03 | PM.CNCAR ---
Assessment and Plan Assessment and plan (1) Elevated troponin: Code(s): R79.89 - Other specified abnormal findings of blood chemistry Status: Acute (2) Small bowel obstruction: Code(s): K56.609 - Unspecified intestinal obstruction, unspecified as to partial versus complete obstruction Status: Acute Plan This is a 78-year-old lady with what appeared to be episodes of vasovagal syncope and presyncope in the setting of small-bowel obstruction resulting in some abdominal pain nausea and retching as well as diarrhea. She has no other pertinent cardiac history other than a reported history of mitral valve prolapse. Echocardiogram to evaluate this has been requested and is pending. For some reason troponin levels were done they are slightly elevated there is no evidence of an acute coronary syndrome in my opinion. We will follow her with you clinically while she is in the hospital but at this point she does not require workup for ischemic heart disease. Jose Saucedo MD [facility] History of Present Illness History of Present Illness Consult date/time: 10/01/23 13:03 Reason For Visit: SBO, Syncopal Episode Narrative: This is a pleasant 78-year-old woman I am seeing at the request of the hospitalist because of syncopal episode that occurred yesterday. The patient stated that she was feeling unwell since the previous night when she started to have the sense of some abdominal discomfort some nausea and that was then followed by a episodes of diarrhea. She describes brown watery diarrhea she was not having any hematochezia or melanotic stool. She came to the emergency room because she had 2 episodes at home while she was nauseated and retching where she lost consciousness on 1 episode and became close to having a loss of consciousness on the 2nd episode. The 1st episode occurred while she was at home alone and the rinse no in hope to witness the event. Obviously we do not know how long it took her to recover consciousness but when she recovered she said that she was not experiencing any chest pain pressure or heaviness or dyspnea. The 2nd episode occurred while her was home but she just became very weak and had to sit down she did not lose consciousness. With these issues she came to the emergency room where she was evaluated and found to have evidence of a small bowel obstruction. He was admitted to the hospital placed on telemetry. Her telemetry since admission has not demonstrated any arrhythmias. She says she is known to have mitral valve prolapse with for many years who was diagnosed with this about 50 years ago when she was . She has no other history of cardiac problems that she can recall. She does have hypertension, diabetes and obesity her BMI is 35. She has been placed on bowel rest with nasogastric suction a surgical consult was done earlier today. According to the patient's description it is a plan to treat this conservatively at this time in hopes of avoiding an operation she has had a couple of sections and previous hernia repair and is therefore felt to probably have adhesions Review of Systems Constitutional: Constitutional: Reports no additional constitutional complaints Eyes: Eyes: Reports no additional eye complaints ENT: Reports system reviewed and no additional complaints, except as documented Cardiovascular: Cardiovascular: Reports as per HPI Respiratory: Respiratory: Reports no additional respiratory complaints Gastrointestinal: Gastrointestinal: Reports as per HPI Musculoskeletal: Musculoskeletal: Reports no additional musculoskeletal complaints Integumentary/Breasts: Skin/Breast: Reports system reviewed and no additional complaints, except as docu Neurologic: Reports as per HPI Endocrine: Endocrine: Reports no additional endocrine complaints Hematologic/Lymphatic: Hematologic/Lymphatic: Reports no additional hematologic/lymphatic complaints Allergic/Immunolo
[2023-10-01] MEDS: ONDANSETRON INJ 4 MG/2 ML VIAL IV PUSH (16:45)
--- NOTE | 2023-10-01 17:42 | WPDCN ---
Assessment and Plan Assessment and plan (1) Small bowel obstruction: Code(s): K56.609 - Unspecified intestinal obstruction, unspecified as to partial versus complete obstruction Status: Acute Assessment and Plan: Partial small-bowel obstruction likely due to adhesions. Patient seems to be resolving. Small bowel series showed contrast reaching the colon 45minutes. We will go and remove her nasogastric tube and start her on liquids tonight. Hopefully can advance her diet tomorrow if she tolerates can be discharged from the hospital tomorrow. HPI Data of Consult Date/Time: 10/01/23 17:42 Requesting Physician: Zachary Medina MD Primary Care Provider: Crys Zepeda MD Consult Narrative Reason for consult: Abdominal pain and nausea vomiting, small-bowel obstruction. Narrative: Sarah Dupont is a 78 year old female who presents to the emergency room with a day long history of worsening abdominal distention abdominal pain associated with nausea vomiting. She has a prior history of ventral hernia repairs with mesh many years ago as well as a couple of C-sections. She has not had prior admissions to the hospital for small-bowel obstructions. In the emergency room her white blood count [id number]. CT scan abdomen pelvis showed dilated small bowel with possible transition point in the mid abdomen. No ischemic changes the bowel were seen. Lactic acid level is normal. Nasogastric tube was placed the patient was admitted to the floor for IV fluid hydration and non operative management. Today she feels better is not nauseated. White blood count normalized. She was hypokalemic and I gave her 40 mEq of potassium IV. I ordered a small-bowel follow-through study to be done which was given through the NG tube and transit of contrast to the colon was only 45minutes. There were some dilated loops of small bowel suggested possible adynamic ileus versus partial small-bowel obstruction. Review of Systems Review of Systems: The remainder of the review of systems to include constitutional, HEENT, cardiovascular, respiratory, GI, , integumentary, musculoskeletal, endocrine, immunologic, hematologic, psychiatric, and neurologic are all negative except for which is mentioned above in the HPI. [facility] Past Medical History Medical History Colon cancer Essential hypertension Hyperlipidemia Hyperthyroidism Lymphedema Mild persistent asthma without complication Obstructive sleep apnea Pulmonary nodule Surgical History Surgical History History of cataract extraction History of section History of colonoscopy with polypectomy Malignant polyp completely removed. History of hysterectomy History of inguinal hernia repair History of tonsillectomy Family History Family History Mother Asthma Chronic obstructive pulmonary disease Father Chronic obstructive pulmonary disease Sibling Coronary artery disease Hx of CABG Sibling Lupus Social History Social History Social History: Surrogate medical decision maker: Alok (spouse) or Alessandro (son) Cresencio. Code status: Full code. Smoking status: Never smoker Second hand tobacco smoke exposure: Yes (As a child) Alcohol intake: never Substance use: never Substance use type: does not use Do You Feel Safe in your Home?: Yes Lack of Transportation: No Lack of Food: Never True Current Housing: I Have Housing Concerned About Future Housing: No Difficulty Paying Gas/Electric Bills: No Difficulty Paying for Meds: No Currently Unemployed: No Education: Master's Degree or Higher Difficulty w/ Childcare or Family Care: No Living arrangements: with family Occupation/Education: retired Spiritual care concerns: No Agree to bl
--- NOTE | 2023-10-01 18:19 | ECHO_ITS ---
Patient Info Name: Sarah Dupont Age: 78 years : 1945 Gender: Female Ht: 60 in Wt: 178 lbs BSA: 1.89 m2 HR: 96 bpm Heart Rhythm: Sinus Rhythm Technical Quality: Fair Exam Date: 10/01/2023 10:40 AM Exam Location: Echo Lab Patient Status: Inpatient Admit Date: 09/30/2023 Staff Ordering Physician: Elidia Cagle PA-C Network Project Manager: Abdi Luevano RDCS Attending Provider: Zachary Medina MD Referring Physician: Gurjit CUMMINS; Exam Type: CA echo doppler color flow Study Info Indications - Elevated Troponins - Near syncope Complete two-dimensional, color flow and Doppler transthoracic echocardiogram is performed. Summary 1. Complete two-dimensional, color flow and Doppler transthoracic echocardiogram is performed. 2. Mild concentric LVH with hyperdynamic systolic function. 3. Grade 1 diastolic noncompliance. 4. Mild left atrial enlarged. Left Ventricle Left ventricular chamber dimension is normal. Left ventricular systolic function is hyperdynamic, estimated at >70%. There is mild concentric increased left ventricular wall thickness. The left ventricular diastolic function is grade I diastolic dysfunction. Right Ventricle Right ventricular chamber dimension is normal. Left Atria Left atrial chamber dimension is mildly enlarged. Right Atria Right atrial chamber dimension is normal. Aortic Valve The aortic valve is trileaflet. There is mild aortic valve sclerosis. Pulmonic Valve The pulmonic valve is normal. Mitral Valve The mitral valve has normal leaflets. The mitral valve annulus is mildly calcified. Tricuspid Valve The tricuspid valve leaflets are normal. Pericardium/Pleural The pericardium appears normal. Aorta The aortic root size at the sinus of Valsalva is normal. Left Ventricular Outflow Tract Name Value Normal LVOT 2D LVOT Diameter 1.9 cm LVOT Doppler LVOT Peak Gradient 7 mmHg LVOT Mean Gradient 3 mmHg LVOT VTI 22 cm LVOT VTI/AV VTI Ratio 0.7 LVOT Stroke Volume 59 ml LVOT CO 5.1 l/min LVOT CI 2.7 l/min/m2 Pulmonic Valve Name Value Normal RVOT Doppler RVOT Peak Gradient 4 mmHg PV Doppler PV Peak Gradient 4 mmHg Mitral Valve Name Value Normal MV Doppler MV [place]el [place] 498 cm/s2 MV PHT 38 ms MV Area (PHT) 5.8 cm2 4.0-5.0 MV
--- NOTE | 2023-10-01 18:38 | PC.NURSE ---
Pulled NG, patient tolerated well.
--- NOTE | 2023-10-01 20:02 | PM.IMPN ---
Progress Note: A&P Assessment and Plan (1) Syncope: Code(s): R55 - Syncope and collapse Status: Acute (2) Small bowel obstruction: Code(s): K56.609 - Unspecified intestinal obstruction, unspecified as to partial versus complete obstruction Status: Acute Plan No other episodes of syncope. Tolerating diet. Advance per surgery. Hopefully home in the morning if she continues to tolerate diet. Subjective Date/time seen: 10/01/23 20:02 Interval history: Feeling well. Tolerating clear liquid diet Review of Systems Review of Systems: All systems reviewed & are unremarkable except as noted in HPI and below (Subjective) Exam Const: General: comfortable and no acute distress Eyes: Pupils: Equal, round and reactive pupils present Neck: Neck: supple Resp: Effort & Inspection: normal respiratory effort Auscultation: clear to auscultation bilaterally GI: GI Palp: Yes Soft to palpation and No Tenderness to palpation present (GI) Extrem: General: no edema Objective Data Vital Signs Vital Signs: Vital Signs - 24 hr 09/30/23 23:27 09/30/23 20:05 09/30/23 23:35 Temperature 97.6 F Pulse Rate 105 H 98 105 H Respiratory Rate 16 18 16 Blood Pressure 171/62 H Pulse Oximetry 97 98 97 Oxygen Delivery Room Air Room Air 09/30/23 22:00 10/01/23 00:00 10/01/23 01:30 Temperature Pulse Rate 110 H 100 91 Respiratory Rate Blood Pressure Pulse Oximetry Oxygen Delivery 10/01/23 00:30 10/01/23 03:28 10/01/23 03:30 Temperature 97.4 F L Pulse Rate 96 85 85 Respiratory Rate 16 20 20 Blood Pressure 138/65 Pulse Oximetry 97 96 96 Oxygen Delivery CPAP CPAP 10/01/23 04:00 10/01/23 05:26 10/01/23 07:44 Temperature 98.0 F Pulse Rate 88 96 93 Respiratory Rate 19 Blood Pressure 131/63 Pulse Oximetry 96 Oxygen Delivery 10/01/23 08:00 10/01/23 08:25 10/01/23 08:29 Temperature Pulse Rate 88 Respiratory Rate 19 Blood Pressure 129/60 138/71 133/61 Pulse Oximetry 97 Oxygen Delivery 10/01/23 11:25 10/01/23 08:00 10/01/23 10:00 Temperature 98.4 F Pulse Rate 103 H 90 94 Respiratory Rate 19 Blood Pressure 153/68 H Pulse Oximetry 98 Oxygen Delivery 10/01/23 12:00 10/01/23 14:00 10/01/23 16:00 Temperature 98.4 F Pulse Rate 94 111 H 109 H Respiratory Rate 17 Blood Pressure 182/73 H Pulse Oximetry 95 Oxygen Delivery 10/01/23 16:00 10/01/23 18:00 Temperature Pulse Rate 107 H 107 H Respiratory Rate Blood Pressure Pulse Oximetry Oxygen Delivery Intake/Output Intake/Output: Intake & Output 09/28/23 09/29/23 09/30/23 10/01/23 23:59 23:59 23:59 23:59 Intake Total 1493.8 652.7 Output Total 150 490 Balance 1343.8 162.7 Meds/Results Medications: Active Medications Generic Name Dose Route Start Last Admin Trade Name Freq PRN Reason Stop Dose Admin Albuterol 1 puff 09/30/23 23:10 Albuterol Sulfate (*Sp) Aerosol 1 Puff INHALATION Q4H PRN shortness of breath or wheezing Fluticasone Propionate 2 spray 09/30/23 23:17 Fluticasone Propionate 0.05% Na Spr 16 Gm Btl (*Bkc) NASAL DAILY PRN Allergy Symptoms Hydromorphone HCl 0.5 mg 09/30/23 17:25 09/30/23 23:39 Hydromorphone Hcl Inj (*Crx) 1 Mg/Ml Syr IV PUSH 0.5 mg Q4H PRN Administration Pain Rated 7-10 Sodium Chloride 1,000 mls @ 80 mls/hr 09/30/23 17:25 10/01/23 06:17 Normal Saline Iv IV CONT 80 mls/hr .[id number] RIVERA Administration Non-Formulary Medication 1 drop 10/01/23 21:00 Netarsudil-Latanoprost [Rocklatan] EACH EYE 10/31/23 20:59 HS RIVERA Ondansetron HCl 4 mg 09/30/23 17:25 10/01/23 16:45 Ondansetron Inj 4 Mg/2 Ml Vial IV PUSH 4 mg Q4H PRN Administration Nausea Pantoprazole Sodium 40 mg 10/01/23 09:00 10/01/23 09:09 Pantoprazole Sodium Iv 40 Mg Vial IV PUSH 40 mg QAM RIVERA Administration Perflutren Lipid Microsphere 0 ml 05/
[2023-10-02] VITALS (13 sets, daily range): BP systolic 103–144; BP diastolic 51–80; PULSE 75–94; RESP 12–20; TEMP 36.3–36.9; O2SAT 97–98
[2023-10-02] MEDS: SODIUM CHLORIDE 0.9% IV 1,000 ML 80 ML IV CONT (00:15)
[2023-10-02 04:55] LABS: Basophils Percent Auto 0.4 % (0.2-1.2); Eosinophils Absolute Auto 0.2 K/mm3 (0-0.3); Hematocrit 34.5 % (37.0-47.0); Immature Granulocyte Absolute 0.01 K/mm3 (0.00-0.031); Immature Granulocyte Percent A 0.1 % (0-0.5); Lymphocytes Absolute Auto 2.57 K/mm3 (0.9-3.2); Lymphocytes Percent Auto 38.1 % (18.3-44.2); Mean Corpuscular HGB Conc 31.9 g/dl (32-36); Mean Corpuscular Hemoglobin 26.1 pg (26-34); Mean Corpuscular Volume 81.8 fl (80-100); Mean Platelet Volume 10.2 fl (7.4-10.4); Monocytes Absolute Auto 0.6 K/mm3 (0.1-0.6); Monocytes Percent Auto 8.3 % (2.6-8.5); Neutrophils Absolute Auto 3.4 K/mm3 (1.3-6.7); Neutrophils Percent Auto 50.1 % (45.5-73.1); Platelet Count Result 261 k/mm3 (150-375); Red Blood Count 4.22 M/mm3 (4.2-5.4); Red Cell Distribution Width 13.3 % (11.5-14.5); White Blood Count 6.7 K/mm3 (4.5-10.0)
[2023-10-02 05:16] LABS: Alanine Aminotransferase 10 U/L (6-35); Albumin Level 3.6 g/dL (3.5-5.1); Alkaline Phosphatase 104 U/L (38-126); Anion Gap 8 mmol/L (4-12); Aspartate Amino Transferase 19 U/L (14-36); Bilirubin,Total 0.5 mg/dL (0.2-1.3); Blood Urea Nitrogen 13 mg/dL (7-17); Calcium 9.1 mg/dL (8.4-10.2); Carbon Dioxide 19 mmol/L (22-30); Chloride 114 mmol/L (98-107); Estimated CRCL calculation 56 ml/min; Estimated Glomerular Filt Rate > 60; Glucose 88 mg/dL (65-110); Magnesium 1.9 mg/dL (1.6-2.3); Potassium 3.3 mmol/L (3.4-5.0); Sodium 141 mmol/L (137-145)
[2023-10-02] MEDS: PANTOPRAZOLE SODIUM IV 40 MG VIAL IV PUSH (08:13)
[2023-10-02] MEDS: prednisoLONE ACETATE 1% OPHTH 5 ML 1 DROP EACH EYE (08:14)
--- NOTE | 2023-10-02 13:57 | PM.PNGS ---
Progress Note: A&P Assessment and Plan (1) Small bowel obstruction: Code(s): K56.609 - Unspecified intestinal obstruction, unspecified as to partial versus complete obstruction Status: Acute Assessment and Plan: Partial small-bowel obstruction likely due to adhesions. Resolving after NG tube decompression. Advance to regular diet today. Okay to discharge from a surgical standpoint. Follow-up only as needed. Plan I have discussed the patient's case and plan of care with Dr. Hawkins. Subjective Subjective Date/Time Seen: 10/02/23 13:57 Patient reports: no new complaints, tolerating a regular diet, flatus and bowel movement Interval history: Patient doing well today. NG removed yesterday and her diet has been advanced. She tolerated clear liquids yesterday and full liquids for breakfast. She had some solid foods for lunch and did well. No nausea or vomiting. Denies any abdominal pain or bloating today. Exam Const: General: comfortable and no acute distress Orientation/consciousness: patient oriented x3 GI: Inspection: non-distended GI Palp: Yes Soft to palpation, No Tenderness to palpation present (GI), No Guarding due to palpation present (GI) and No Rebound tenderness present Auscultation: normal bowel sounds Objective Data Vital Signs Vital Signs: Vital Signs - 24 hr 10/01/23 14:00 10/01/23 16:00 10/01/23 16:00 Temperature 98.4 F Pulse Rate 111 H 109 H 107 H Respiratory Rate 17 Blood Pressure 182/73 H Pulse Oximetry 95 Oxygen Delivery 10/01/23 18:00 10/01/23 20:00 10/01/23 20:05 Temperature 97.8 F 97.6 F Pulse Rate 107 H 106 H 102 H Respiratory Rate 20 20 Blood Pressure 165/69 H 146/75 H Pulse Oximetry 96 97 Oxygen Delivery 10/01/23 20:00 10/01/23 20:00 10/01/23 20:00 Temperature 97.6 F Pulse Rate 103 H 105 H Respiratory Rate 20 Blood Pressure 165/69 H Pulse Oximetry 96 Oxygen Delivery Room Air 10/01/23 22:31 10/01/23 23:28 10/01/23 22:00 Temperature 97.7 F Pulse Rate 96 91 93 Respiratory Rate 16 20 Blood Pressure 143/58 H Pulse Oximetry 96 95 Oxygen Delivery CPAP 10/02/23 00:00 10/02/23 00:00 10/02/23 02:00 Temperature Pulse Rate 88 88 Respiratory Rate Blood Pressure Pulse Oximetry Oxygen Delivery CPAP 10/02/23 03:30 10/02/23 04:00 10/02/23 05:44 Temperature 97.4 F L Pulse Rate 83 81 Respiratory Rate 20 Blood Pressure 142/64 H Pulse Oximetry 97 Oxygen Delivery CPAP 10/02/23 06:00 10/02/23 07:34 10/02/23 08:00 Temperature 97.8 F Pulse Rate 75 80 80 Respiratory Rate 16 Blood Pressure 144/65 H Pulse Oximetry 98 Oxygen Delivery 10/02/23 08:00 10/02/23 10:00 10/02/23 11:51 Temperature 98.5 F Pulse Rate 80 81 Respiratory Rate 12 Blood Pressure 142/51 H Pulse Oximetry 98 Oxygen Delivery Room Air 10/02/23 11:52 10/02/23 11:52 10/02/23 11:53 Temperature 98.5 F Pulse Rate 81 Respiratory Rate 12 Blood Pressure 142/51 H 140/79 103/80 Pulse Oximetry 98 Oxygen Delivery 10/02/23 12:00 10/02/23 12:00 Temperature Pulse Rate 94 Respiratory Rate Blood Pressure Pulse Oximetry Oxygen Delivery Room Air Intake/Output Intake/Output: Intake & Output 09/29/23 09/30/23 10/01/23 10/02/23 23:59 23:59 23:59 23:59 Intake Total 1493.8 1652.7 600 Output Total 150 890 300 Balance 1343.8 762.7 300 Meds/Results Medications: Active Medications Generic Name Dose Route Start Last Admin Trade Name Freq PRN Reason Stop Dose Admin Albuterol 1 puff 09/30/23 23:10 Albuterol Sulfate (*Sp) Aerosol 1 Puff INHALATION Q4H PRN shortness of breath or wheezing Fluticasone Propionate 2 spray 09/30/23 23:17 Fluticasone Propionate 0.05% Na Spr 16 Gm Btl (*Bkc) NASAL DAILY PRN Allergy Symptoms Hydromorphone HCl 0.5 mg 09/30/23 17:25 09/30/23 23:39 Hydromorphone Hcl Inj (*Crx) 1 Mg/Ml Syr IV PUSH 0.5 mg
--- NOTE | 2023-10-02 15:15 | PM.DS ---
DS: Admitting Diagnosis Discharge Date 10/02/23 Admitting Diagnosis October 02, 2023 DS: Discharge Diagnosis Discharge Diagnosis (1) Syncope: Code(s): R55 - Syncope and collapse Status: Acute (2) Small bowel obstruction: Code(s): K56.609 - Unspecified intestinal obstruction, unspecified as to partial versus complete obstruction Status: Acute (3) Elevated troponin: Code(s): R79.89 - Other specified abnormal findings of blood chemistry Status: Acute DS: Summary Hospital Course Hospital Course: This is a 78-year-old female with history of hypertension, hyperthyroidism, dyslipidemia, sleep apnea, and other comorbidities who presented to the emergency department via EMS from home for evaluation of nausea, vomiting, and syncope. The patient provides the following history. Last evening after dinner her stomach was upset and she reports having several episodes of nonbloody and nonbilious emesis. She was able to sleep throughout the night but when she got up this morning she was still nauseated and she went to the bathroom to try to vomit. She reports having several loose stools and while on the toilet her nausea intensified, she began to feel lightheaded and sweaty, and she had a strong pounding sensation in her chest. With further questioning she reports having intermittent discomfort in the left anterior chest which she has attributed to the fact that she has a torn left rotator cuff. She denies fever, hematemesis, melena, hematochezia, exertional chest pain, pleuritic pain, palpitations, lower extremity edema, and calf pain. In the ED: She was afebrile on arrival. Blood pressure dropped from 137/54 to 70/39 on orthostatic vital check. Labs were significant for WBC count of 14.7, hemoglobin 13.2, BUN 27, lactic acid 0.7, troponin 0.012. Urine was positive for 2+ protein, 2+ leukocyte esterase, 6 to 10 RBC, 6 to 10 WBC, 2+ bacteria, many squamous cells, and greater than [address] of the abdomen and pelvis showed mid small-bowel obstruction, likely secondary to adhesion. NG tube was inserted and she is being admitted in this setting for further treatment and evaluation. She was seen by General surgery and her NG tube removed. Partial small-bowel obstruction improved and she tolerated a regular diet. She was also seen by Cardiology and in their opinion there was no acute coronary syndrome and the syncope was likely due to vasovagal process in the setting of SBO with abdominal pain nausea. The patient is stable for discharge to home on 10/02/2023. Constipation is a side effect of Wegovy. He has been using this for weight loss and not diabetes. She is already lost 50 lb and would like to continue to lose weight with diet control. She elects to discontinue her Wegovy so that has been reflected in her discharge medication reconciliation. The patient was full code during the admission. Time Spent with Patient Time attestation: Total time spent providing and/or coordinating discharge services: Exam Const: General: comfortable and no acute distress Orientation/consciousness: patient oriented x3 GI: Inspection: non-distended GI Palp: Yes Soft to palpation, No Tenderness to palpation present (GI), No Guarding due to palpation present (GI) and No Rebound tenderness present Auscultation: normal bowel sounds DS: Data Data Completed and Pending Labs on day of discharge: Labs from last 24 hours 10/02/23 04:02 WBC 6.7 RBC 4.22 Hgb 11.0 L Hct 34.5 L MCV 81.8 MCH 26.1 MCHC 31.9 L RDW 13.3 Plt Count 261 MPV 10.2 Immature Gran % (Auto) 0.1 Neut % (Auto) 50.1 Lymph % (Auto) 38.1 [place] % (Auto) 8.3 Eos % (Auto) 3.0 Baso % (Auto) 0.4 Lymph # (Auto) 2.57 [place] # (Auto) 0.6 Eos # (Auto) 0.2 Baso # (Auto) 0.0 Abs Immat Gran (auto) 0.01 Absolute Neuts (auto) 3.4 Absolute Nucleated RBC 0.000 Nucleated RBC % 0.0 Sodium 141 Potassium 3.3 L Chloride 114 H Carbon Dioxide 19 L Ani
== END 2023-10-02 14:53 | disposition home or self-care (01) | DRG 390 ==
LOC: ANHED 17:11 → ANHIMU 17:56
PROVIDERS: Physician Assistant; Surgery; Admitting Provider Internal Medicine; Emergency Provider Family Medicine; PCP Family Medicine; Visit Provider General Practice
DX: K56.50 Intestinal adhesions [bands], unspecified as to partial versus complete obstruction (principal); R11.10 Vomiting, unspecified; K59.00 Constipation, unspecified; T38.3X5A Adverse effect of insulin and oral hypoglycemic [antidiabetic] drugs, initial encounter; E03.9 Hypothyroidism, unspecified; E05.90 Thyrotoxicosis, unspecified without thyrotoxic crisis or storm; E66.9 Obesity, unspecified; E78.5 Hyperlipidemia, unspecified; G47.33 Obstructive sleep apnea (adult) (pediatric); I10 Essential (primary) hypertension; I95.9 Hypotension, unspecified; I34.1 Nonrheumatic mitral (valve) prolapse; R79.89 Other specified abnormal findings of blood chemistry; Z79.85 Long-term (current) use of injectable non-insulin antidiabetic drugs; Z85.038 Personal history of other malignant neoplasm of large intestine; Z68.35 Body mass index [BMI] 35.0-35.9, adult
CPT/HCPCS: 36415; 74019; 74177; 74250; 80048; 80053; 81001; 83605; 83735; 84439; 84443; 84480; 84484; 85025; 85055; 87077; 87086; 87088; 87186; 93005; 93306; 96361; 96374; 99285; A9270; C9113; J1170; J1650; J2405; J2543; J3480; J7030; J7040; Q9967

== ENCOUNTER 2023-10-15 10:34 | Outpatient (CLI) | payer MEDICARE, SELFPAY ==
--- NOTE | ~2023-10-15 | XR_ITS ---
EXAM: XR abdomen obstructive series DATE: 10/15/2023 11:07 HISTORY: R11.10 - Vomiting, unspecified . COMPARISON: 10/01/2023. FINDINGS: Bibasilar scar/atelectasis. Surgical misa over the right lower abdomen. Gallstones. Bib asilar scar/atelectasis. Mildly dilated loops of small bowel in the central abdomen. Gas projects ove r the rectum. Mild scoliosis. Lumbar degenerative disc disease. Mild bilateral hip osteoarthritic art hritis. Osteopenia. IMPRESSION: Cholelithiasis. Mildly dilated loops of small bowel may represent ileus. Overall findings appear to be improving since the prior examination, however early/partial obstruction is not exclude d. Reviewed, dictated and finalized at [facility]. IMPRESSION: Cholelithiasis. Mildly dilated loops of small bowel may represent i leus. Overall findings appear to be improving since the prior examination, echevarria hammad early/partial obstruction is not excluded.
[2023-10-15 11:43] LABS: Basophils Percent Auto 0.1 % (0.2-1.2); Eosinophils Absolute Auto 0.3 K/mm3 (0-0.3); Hemoglobin 12.2 g/dL (12.0-15.0); Immature Granulocyte Absolute 0.02 K/mm3 (0.00-0.031); Immature Granulocyte Percent A 0.2 % (0-0.5); Lymphocytes Absolute Auto 2.15 K/mm3 (0.9-3.2); Lymphocytes Percent Auto 23.6 % (18.3-44.2); Mean Corpuscular HGB Conc 32.1 g/dl (32-36); Mean Corpuscular Hemoglobin 26.1 pg (26-34); Mean Corpuscular Volume 81.4 fl (80-100); Mean Platelet Volume 9.9 fl (7.4-10.4); Monocytes Absolute Auto 0.4 K/mm3 (0.1-0.6); Monocytes Percent Auto 4.5 % (2.6-8.5); Neutrophils Absolute Auto 6.3 K/mm3 (1.3-6.7); Neutrophils Percent Auto 68.6 % (45.5-73.1); Platelet Count Result 288 k/mm3 (150-375); Red Blood Count 4.67 M/mm3 (4.2-5.4); Red Cell Distribution Width 13.7 % (11.5-14.5); White Blood Count 9.1 K/mm3 (4.5-10.0)
[2023-10-15 12:15] LABS: Alanine Aminotransferase 9 U/L (6-35); Albumin Level 4.2 g/dL (3.5-5.1); Alkaline Phosphatase 101 U/L (38-126); Anion Gap 6 mmol/L (4-12); Aspartate Amino Transferase 19 U/L (14-36); Bilirubin,Total 0.4 mg/dL (0.2-1.3); Blood Urea Nitrogen 25 mg/dL (7-17); Calcium 9.3 mg/dL (8.4-10.2); Carbon Dioxide 32 mmol/L (22-30); Chloride 101 mmol/L (98-107); Estimated Glomerular Filt Rate > 60; Glucose 105 mg/dL (65-110); Lipase 134 U/L (23-300); Potassium 3.7 mmol/L (3.4-5.0); Sodium 139 mmol/L (137-145)
== END 2023-10-15 10:35 | disposition home or self-care (01) ==
PROVIDERS: PCP Family Medicine; Visit Provider Family Medicine
DX: K56.609 Unspecified intestinal obstruction, unspecified as to partial versus complete obstruction (principal); R11.10 Vomiting, unspecified; K80.20 Calculus of gallbladder without cholecystitis without obstruction
CPT/HCPCS: 36415; 74019; 80053; 83690; 85025

== ENCOUNTER 2023-10-16 15:02 | Outpatient (CLI) | payer MEDICARE, SELFPAY ==
--- NOTE | ~2023-10-16 | CT_ITS ---
CT of the Abdomen and Pelvis: Indication: Vomiting Technique: 2.5 mm axial scans were obtained through the abdomen and pelvis following intravenous adm inistration of 100 cc of Omnipaque 350. Dose reduction technique was used on this scan by utilizing a utomated exposure control and iterative reconstruction technique. The dose-length product (DLP) was 8 57.58 mGy-cm. COMPARISON: 09/30/2023 Findings: Scans through the lung bases are unremarkable. The liver, spleen, pancreas, adrenals and kidneys are within normal limits. Calcified gallstones are present. There are atherosclerotic calcifications of the aorta. No lymphadenopathy. No bowel obstruction or bowel wall thickening. There is no evidence to suggest acute appendicitis. Images through the pelvis were performed. Urinary bladder unremarkable. No pelvic mass seen. No ascit es. Impression: Cholelithiasis. Reviewed, dictated and finalized at [facility]. Impression: Cholelithiasis.
[2023-10-16 15:23] LABS: Estimated Glomerular Filt Rate > 60
== END 2023-10-16 15:03 ==
LOC: MICIMG 15:03
PROVIDERS: PCP Family Medicine; Visit Provider Family Medicine
DX: K56.7 Ileus, unspecified (principal); K80.20 Calculus of gallbladder without cholecystitis without obstruction
CPT/HCPCS: 74177; Q9967

== ENCOUNTER 2024-03-06 18:46 | Observation (INO) | payer MEDICARE, SELFPAY ==
[2024-03-06] VITALS (13 sets, daily range): BP systolic 117–168; BP diastolic 57–85; PULSE 73–92; RESP 16–18; TEMP 36.3–36.6; O2SAT 96–100; BMI 34.2
--- NOTE | ~2024-03-06 | CT_ITS ---
EXAMINATION: CT brain wo con DATE: 03/07/2024 11:17 INDICATION: Syncope. TECHNIQUE: Computed tomography (CT) of the head was performed without intravenous contrast. The mA wa s adjusted according to patient size. Iterative reconstruction technique was employed. The dose-lengt h product was 756.67 mGy-cm. COMPARISON: Head CT 08/31/2004 FINDINGS: There are scattered areas of low attenuation in the cerebral white matter, which is within normal limits for the patient's age. 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 There is no int racranial hemorrhage, acute infarction, or abnormal intracranial mass lesion. The ventricles are norm al in size. There is mild mucosal thickening in the paranasal sinuses. There are likely changes of oc ular lens replacement surgeries. There is a small left mastoid effusion. IMPRESSION: 1. 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 Reviewed, dictated and finalized at location A.
--- NOTE | ~2024-03-06 | US_ITS ---
EXAMINATION: US carotid duplex BI DATE: 03/07/2024 11:43 INDICATION: Syncope. TECHNIQUE: Grayscale, color Doppler, and pulsed Doppler images of the cervical carotid arteries were obtained. The degree of vessel stenosis is placed in one of the following categories: normal, <50%, 5 0-69%, >=70% but less than near-occlusion, near-occlusion, or total occlusion. Note that percent sten osis relative to normal distal artery lumen diameter is indirectly measured from velocity measurement s as described by Tomy, et al. Radiology 2003; 229:340-346. COMPARISON: Ultrasound 06/09/2011 FINDINGS: RIGHT: The right common carotid artery (CCA) peak systolic velocity (PSV) is 81 cm/s. The right internal car otid artery (ICA) PSV is 58 cm/s. The right ICA end-diastolic velocity (EDV) is 12 cm/s. The right IC A/CCA PSV ratio is 1.1. Grayscale and color Doppler images yield an estimate of <50% diameter reducti on from plaque in the ICA. There is antegrade flow in the right vertebral artery. LEFT: The left CCA PSV is 93 cm/s. The left ICA PSV is 90 cm/s. The left ICA EDV is 17 cm/s. The left ICA/C CA PSV ratio is 1.0. Grayscale and color Doppler images yield an estimate of <50% diameter reduction from plaque in the ICA. There is antegrade flow in the left vertebral artery. IMPRESSION: 1. <50% stenosis in the right internal carotid artery. 2. <50% stenosis in the left internal carotid artery. Reviewed, dictated and finalized at location A.
--- NOTE | ~2024-03-06 | XR_ITS ---
CHEST RADIOGRAPH CLINICAL HISTORY: [employer] . COMPARISON: 08/24/2023 TECHNIQUE: Single portable view of the chest. FINDINGS Persistent elevation of the right hemidiaphragm with adjacent compressive atelectasis, secondary to s ignificant hepatomegaly. The lungs are otherwise clear, although decreased in volume. IMPRESSION: Elevation of the right hemidiaphragm adjacent compressive atelectasis, without focal infiltrate or ef fusion. Reviewed, dictated and finalized at location A. IMPRESSION: Elevation of the right hemidiaphragm adjacent compressive atelectasis, without focal infiltrate or effusion.
--- NOTE | 2024-03-06 19:55 | ED_ITS ---
HPI - Syncope General Chief Complaint: Syncope Stated Complaint: dizzy, syncope Time Seen by Provider: 03/06/24 19:53 Source: patient and family Mode of arrival: ambulatory Limitations: no limitations History of Present Illness HPI narrative: 78 YEARS OLD WHITE FEMALE WAS STANDING COOKING, SUDDENLY STARTED FEELING LIGHTHEADEDNESS AND DIZZINESS, FEELS LIKE GOING TO FAINT, HER SON WAS ABLE TO SUPPORT HER TO GO SLOWLY TO THE GROUND, THE PATIENT AND HER FAMILY REPORTED THAT THE PATIENT HAD LOSS OF CONSCIOUSNESS FOR FEW SECONDS. LATER PATIENT TRIED TO GET UP AND HAD SIMILAR SYMPTOMS AGAIN. SHE DENIES ANY FEVER, CHILLS, NAUSEA, VOMITING, ABDOMINAL PAIN, CHEST PAIN, SHORTNESS OF BREATH OR HEADACHE OR FOCAL NEURO DEFICIT Related Data Home Medications Medication Instructions Recorded Confirmed methimazole 10 mg tablet (Tapazole) See Rx Instructions .Route .COMPLEX 10/28/20 10/15/23 calcium carbonate (Calcium 500) 500 mg PO DAILY 12/19/21 10/15/23 cholecalciferol (vitamin D3) 25 25 mcg PO DAILY 12/19/21 10/15/23 mcg (1,000 unit) capsule acetaminophen 650 mg 650 mg PO BID 07/24/22 10/15/23 tablet,extended release fluticasone furoate 27.5 2 spray intranasal DAILY PRN 09/30/23 10/15/23 mcg/actuation nasal Allergy Symptoms spray,suspension furosemide 40 mg tablet 40 mg PO DAILY 09/30/23 10/15/23 furosemide 40 mg tablet 40 mg PO HS PRN .Increased swelling 09/30/23 10/15/23 netarsudil 0.02 %-latanoprost 1 drp EACH EYE HS 09/30/23 10/15/23 0.005 % eye drops (Rocklatan) pantoprazole 40 mg tablet,delayed 40 mg PO BID 09/30/23 10/15/23 release prednisolone acetate 1 % eye 1 drp EACH EYE DAILY 09/30/23 10/15/23 drops,suspension ramipril 5 mg capsule 5 mg PO BID 09/30/23 10/15/23 Allergies Allergy/AdvReac Type Severity Reaction Status Date / Time prochlorperazine Allergy Mild Jittery Verified 10/15/23 09:50 indomethacin Allergy Unknown Nausea, Verified 10/15/23 09:50 HEADACHE Review of Systems Review of Systems: All systems reviewed & are unremarkable except as noted in HPI and below PMFSH Past Medical History Medical History Colon cancer Essential hypertension Hyperlipidemia Hyperthyroidism Lymphedema Mild persistent asthma without complication Obstructive sleep apnea Pulmonary nodule Surgical History Surgical History History of cataract extraction History of section History of colonoscopy with polypectomy Malignant polyp completely removed. History of hysterectomy History of inguinal hernia repair History of tonsillectomy Family History Family History Mother Asthma Chronic obstructive pulmonary disease Father Chronic obstructive pulmonary disease Sibling Coronary artery disease Hx of CABG Sibling Lupus Social History Social History Social History: Surrogate medical decision maker: Alok (spouse) or Alessandro (son) Cresencio. Code status: Full code. Smoking status: Never smoker Second hand tobacco smoke exposure: Yes (As a child) Alcohol intake: never Substance use: never Substance use type: does not use Do You Feel Safe in your Home?: Yes Lack of Transportation: No Lack of Food: Never True Current Housing: I Have Housing Concerned About Future Housing: No Difficulty Paying Gas/Electric Bills: No Difficulty Paying for Meds: No Currently Unemployed: No Education: Master's Degree or Higher Difficulty w/ Childcare or Family Care: No Living arrangements: with family Occupation/Education: retired Spiritual care concerns: No Agree to blood products: Yes Exam Narrative: GENERAL APPEARANCE: WELL-DEVELOPED, WELL-NOURISHED SKIN: NORMAL COLOR HEAD: NORMOCEPHALIC, NONTRAUMATIC EYES: CLEAR CONJUNCTIVA ENT: OROPHARYNX NORMAL, EARS NORMAL, NOSE NORMAL NECK: SUPPLE, NONTENDER CHEST AND RESPIRATORY: AIRWAY PATENT, NO RESPIRATORY DISTRESS, NO ACCESSORY MUSCLE USE HEART: REGULAR RATE/RHYTHM ABDOMEN: SOFT, NONTENDER, NO ORGANOMEGALY, QUIET BOWEL SOUNDS VASCULAR: NORMAL PERIPHERAL PULSES, NORMAL CAPILLARY REFILL. MUSCULOSKELETAL: NORMAL RANGE OF MOTION, NONTENDER BACK NEUROLOGIC: ALERT AND ORIENTED ?3, CHIEF OPERATOR LOCK TENDER IS NORMAL TESTED, NO GROSS MOTOR DEFICIT Course Vital Signs Vital signs: Vital Signs Temperature 36.4 C L 03/06/24 18:48 Pulse Rate 73 03/06/24 18:48 Respiratory Rate 16 03/06/24 18:48 Blood Pressure 141/58 H 10/24/24 18:48 Pulse Oximetry 98 03/06/24 18:48 Temperature 36.6 C 03/06/24 20:54 Pulse Rate 76 03/06/24 20:54 Respiratory Rate 16 03/06/24 20:54 Blood Pressure 140/57 L 03/06/24 20:54 Pulse Oximetry 97 03/06/24 20:54 Oxygen Delivery Room Air 03/06/24 20:00 MDM - Syncope MDM Narrative Medical decision making narrative: PATIENT PRESENTS WITH NEAR SYNCOPE/SYNCOPE WHILE IN A STANDING POSITION. VITAL SIGNS ARE STABLE PATIENT TESTED POSITIVE FOR ORTHOSTASIS PHYSICAL EXAMINATION SHOWED INSIGNIFICANT FINDINGS DIFFERENTIAL DIAGNOSIS ORTHOSTATIC HYPOTENSION, ELECTROLYTE IMBALANCE, DEHYDRATION, CARDIAC ARRHYTHMIA BLOOD WORKUP TODAY SHOWED CREATININE OF 1.1 COMPARED TO 0.20 SEP 2023, TROPONIN OF 0.070 WHICH IS LESS COMPARED TO SEPTEMBER 2023, DEMAND ISCHEMIA COULD BE THE UNDERLYING CAUSE OF ELEVATED TROPONIN NSTEMI IS ANOTHER POSSIBILITY. Differential Diagnosis Differential diagnosis: Likely other ( ABOVE) Medical Records Attestation: I reviewed the patient's medical records. Lab Data Attestation: I reviewed the patient's lab results. 03/06/24 20:08 03/06/24 20:08 Labs: Lab Results 03/06/24 03/06/24 Range/Units 20:08 20:17 WBC 9.6 (4.5-10.0) K/mm3 RBC 4.56 (4.2-5.4) M/mm3 Hgb 12.2 (12.0-15.0) g/dL Hct 36.6 L (37.0-47.0) % MCV 80.3 (80-100) fl MCH 26.8 (26-34) pg MCHC 33.3 (32-36) g/dl RDW 13.1 (11.5-14.5) % Plt Count 277 (150-375) k/mm3 MPV 9.9 (7.4-10.4) fl Immature Gran % (Auto) 0.3 (0-0.5) % Neut % (Auto) 77.0 H (45.5-73.1) % Lymph % (Auto) 15.9 L (18.3-44.2) % [place] % (Auto) 4.8 (2.6-8.5) % Eos % (Auto) 1.7 (0-4.4) % Baso % (Auto) 0.3 (0.2-1.2) % Lymph # (Auto) 1.53 (0.9-3.2) K/mm3 [place] # (Auto) 0.5 (0.1-0.6) K/mm3 Eos # (Auto) 0.2 (0-0.3) K/mm3 Baso # (Auto) 0.0 (0.0-0.1) K/mm3 Abs Immat Gran (auto) 0.03 (0.00-0.031) K/mm3 Absolute Neuts (auto) 7.4 H (1.3-6.7) K/mm3 Absolute Nucleated RBC 0.000 (0.0-0.012) K/mm3 Nucleated RBC % 0.0 (0.0-0.2) % PT 14.2 (11.1-14.7) Seconds INR 1.1 APTT 28.9 (22.3-36.8) Seconds Sodium 135 L (137-145) mmol/L Potassium 4.1 (3.4-5.0) mmol/L Chloride 97 L (98-107) mmol/L Carbon Dioxide 27 (22-30) mmol/L Anion Gap 11 (4-12) mmol/L BUN 38 H D (7-17) mg/dL Creatinine 1.10 H (0.7-1.0) mg/dL Estim Creat Clear Calc Not Reportable Estimated GFR 48 L (59 - ) Glucose 109 (65-110) mg/dL Calcium 9.6 (8.4-10.2) mg/dL Magnesium 2.0 (1.6-2.3) mg/dL Total Bilirubin 0.3 (0.2-1.3) mg/dL AST 23 (14-36) U/L ALT 14 (6-35) U/L Alkaline Phosphatase 139 H (38-126) U/L Troponin I 0.070 H* (0.000-0.034) ng/mL Total Protein 8.0 (6.3-8.2) g/dL Albumin 4.4 (3.5-5.1) g/dL Urine Color Yellow (Yellow) Urine Appearance Clear (Clear) Urine pH 5.0 (5.0-9.0) Ur Specific [place] 1.012 (1.001-1.035) Urine Protein Negative (Negative) mg/dL Urine Glucose (UA) Negative (Negative) mg/dL Urine Ketones Negative (Negative) mg/dL Ur Blood (Man) Trace (Negative) Urine Nitrate Negative (Negative) Urine Bilirubin Negative (Negative) Urine Urobilinogen 0.2 (<2.0) mg/dL Leukocyte Esterase Rfl Negative (Negative) [place]/UL Urine RBC 0-2 (0-2) /hpf Urine WBC 0-5 (0-3) /hpf Ur Squamous Epith Cells None seen (Few) /hpf Urine Bacteria None seen /hpf Urine Casts 0-2 Imaging Data Radiologist's impression: Impressions Chest X-Ray 03/06/24 20:27 IMPRESSION: Elevation of the right hemidiaphragm adjacent compressive atelectasis, without focal infiltrate or effusion. ECG Data EKG #1: Attestation: I personally reviewed and interpreted this ECG as follows: ECG completion date: 03/06/24 ECG completion time: 22:46 Interpretation: NORMAL SINUS RHYTHM AT 78 BEATS PER MINUTE, NO PREVIOUS EKG AVAILABLE FOR COMPARISON Critical Care Time Critical Care Time Critical Care Time: No Discharge Plan Discharge Clinical Impression: Orthostatic hypotension, Elevated troponin, RUKHSANA (acute kidney injury) Patient Disposition: Still a Patient Condition: Stable
--- NOTE | 2024-03-06 19:56 | ECG_ITS ---
Test Date: 2024-03-06 20:27:47 Measurements Intervals [place] Rate: 78 P: 57 MA: 180 QRS: 3 QRSD: 97 T: 50 QT: 405 QTc: 464 Interpretive Statements SINUS RHYTHM No previous ECG available for comparison Electronically Signed On 03-07-2024 15:30:07 CDT by Loy Clemons M.D.
[2024-03-06 20:22] LABS: Basophils Percent Auto 0.3 % (0.2-1.2); Eosinophils Absolute Auto 0.2 K/mm3 (0-0.3); Eosinophils Percent Auto 1.7 % (0-4.4); Hematocrit 36.6 % (37.0-47.0); Hemoglobin 12.2 g/dL (12.0-15.0); Immature Granulocyte Absolute 0.03 K/mm3 (0.00-0.031); Immature Granulocyte Percent A 0.3 % (0-0.5); Lymphocytes Absolute Auto 1.53 K/mm3 (0.9-3.2); Lymphocytes Percent Auto 15.9 % (18.3-44.2); Mean Corpuscular HGB Conc 33.3 g/dl (32-36); Mean Corpuscular Hemoglobin 26.8 pg (26-34); Mean Corpuscular Volume 80.3 fl (80-100); Mean Platelet Volume 9.9 fl (7.4-10.4); Monocytes Absolute Auto 0.5 K/mm3 (0.1-0.6); Monocytes Percent Auto 4.8 % (2.6-8.5); Neutrophils Absolute Auto 7.4 K/mm3 (1.3-6.7); Platelet Count Result 277 k/mm3 (150-375); Red Blood Count 4.56 M/mm3 (4.2-5.4); Red Cell Distribution Width 13.1 % (11.5-14.5); White Blood Count 9.6 K/mm3 (4.5-10.0)
[2024-03-06 20:25] LABS: Add Urine Microscopic? YES; Appearance Urine Clear (Clear); Bacteria Urine None Seen /hpf; Bilirubin Urine Negative (Negative); Blood Urine Trace (Negative); Color Urine Yellow (Yellow); Glucose Urine UA Negative (Negative); Ketones Urine Negative (Negative); Leukocyte Esterase Ur Negative LEU/UL (Negative); Nitrate Urine Negative (Negative); Non Pathogenic Casts 0-2; Protein Urine Negative (Negative); RBC Urine 0-2 /hpf (0-2); Specific Grav Ur 1.012 (1.001-1.035); Squamous Epithelial Cell Urine None Seen /hpf (Few); Urobilinogen Urine 0.2 mg/dL (<2.0); WBC Urine 0-5 /hpf (0-3)
[2024-03-06 20:31] LABS: Alanine Aminotransferase 14 U/L (6-35); Albumin Level 4.4 g/dL (3.5-5.1); Alkaline Phosphatase 139 U/L (38-126); Anion Gap 11 mmol/L (4-12); Aspartate Amino Transferase 23 U/L (14-36); Bilirubin,Total 0.3 mg/dL (0.2-1.3); Blood Urea Nitrogen 38 mg/dL (7-17); Calcium 9.6 mg/dL (8.4-10.2); Carbon Dioxide 27 mmol/L (22-30); Chloride 97 mmol/L (98-107); Estimated Glomerular Filt Rate 48; Glucose 109 mg/dL (65-110); Potassium 4.1 mmol/L (3.4-5.0); Sodium 135 mmol/L (137-145)
[2024-03-06 20:32] LABS: INR 1.1; Prothrombin Time 14.2 Seconds (11.1-14.7)
[2024-03-06 20:33] LABS: Partial Thromboplastin Time 28.9 Seconds (22.3-36.8)
[2024-03-06] MEDS: SODIUM CHLORIDE 0.9% IV 1,000 ML 999 ML IV CONT (21:15)
--- NOTE | 2024-03-06 22:01 | P.HP_ITS ---
H&P: HPI History of Present Illness Date/Time: 03/06/24 22:01 Chief Complaint: Syncope Narrative: 78-year-old female with a PMH hypertension, hyperthyroidism, dyslipidemia, sleep apnea, asthma, hyperthyroidism, history of SBO, history of syncope, lymphedema on Lasix. On the day of admission 03/06/2024 the patient reports she had a very eventful day around the house and did not drink as much water as usual. She has been taking her Lasix as well for lymphedema. She intermittently uses knee-high compression stockings. She was standing in the kitchen making dinner when she was witnessed to be weak, family member lowered her to the floor reported she did lose consciousness. She came to shortly after. There was no aura, no seizure activity, no trauma. ER evaluation demonstrated positive orthostatic hypotension. She had dry mucous membranes. She also has a BUN 38 a serum creatinine of 1.10. Troponin 0.070 which is lower than her last. EKG without acute ischemia. Sinus rhythm. She is given 2 L normal saline bolus. Afterwards, the patient reports feeling better however she had not ambulated. Hospice service requested for admission for observation for syncope. Review of Systems Review of Systems: All systems reviewed & are unremarkable except as noted in HPI and below (Subjective) [facility] Past Medical History Medical History Colon cancer Essential hypertension Hyperlipidemia Hyperthyroidism Lymphedema Mild persistent asthma without complication Obstructive sleep apnea Pulmonary nodule Surgical History Surgical History History of cataract extraction History of section History of colonoscopy with polypectomy Malignant polyp completely removed. History of hysterectomy History of inguinal hernia repair History of tonsillectomy Family History Family History Mother Asthma Chronic obstructive pulmonary disease Father Chronic obstructive pulmonary disease Sibling Coronary artery disease Hx of CABG Sibling Lupus Social History Social History Social History: Surrogate medical decision maker: Alok (spouse) or Alessandro (son) Cresencio. Code status: Full code. Smoking status: Never smoker Second hand tobacco smoke exposure: Yes (As a child) Alcohol intake: never Substance use: never Substance use type: does not use Do You Feel Safe in your Home?: Yes Lack of Transportation: No Lack of Food: Never True Current Housing: I Have Housing Concerned About Future Housing: No Difficulty Paying Gas/Electric Bills: No Difficulty Paying for Meds: No Currently Unemployed: No Education: Master's Degree or Higher Difficulty w/ Childcare or Family Care: No Living arrangements: with family Occupation/Education: retired Spiritual care concerns: No Agree to blood products: Yes Meds Home Medications and Allergies Home Medications Medication Instructions Recorded Confirmed Type methimazole 10 mg tablet (Tapazole) See Rx Instructions .Route .COMPLEX 10/28/20 10/15/23 History albuterol sulfate 90 mcg/actuation 1 inh inhalation Q4H PRN shortness 12/19/21 10/15/23 Rx aerosol inhaler of breath or wheezing #8.5 grams calcium carbonate (Calcium 500) 500 mg PO DAILY 12/19/21 10/15/23 History cholecalciferol (vitamin D3) 25 25 mcg PO DAILY 12/19/21 10/15/23 History mcg (1,000 unit) capsule acetaminophen 650 mg 650 mg PO BID 07/24/22 10/15/23 History tablet,extended release celecoxib 100 mg capsule (Celebrex) 100 mg PO BID #180 caps 09/28/23 10/15/23 Rx fluticasone furoate 27.5 2 spray intranasal DAILY PRN 09/30/23 10/15/23 History mcg/actuation nasal Allergy Symptoms spray,suspension furosemide 40 mg tablet 40 mg PO DAILY 09/30/23 10/15/23 History furosemide 40 mg tablet 40 mg PO HS PRN .Increased swelling 09/30/23 10/15/23 History netarsudil 0.02 %-latanoprost 1 drp EACH EYE HS 09/30/23 10/15/23 History 0.005 % eye drops (Rocklatan) pantoprazole 40 mg tablet,delayed 40 mg PO BID 09/30/23 10/15/23 History release prednisolone acetate 1 % eye 1 drp EACH EYE DAILY 09/30/23 10/15/23 History drops,suspension ramipril 5 mg capsule 5 mg PO BID 09/30/23 10/15/23 History potassium chloride 10 mEq 10 meq PO DAILY #90 caps 11/14/23 Rx capsule,extended release gemfibrozil 600 mg tablet 600 mg PO BID #180 tabs 12/09/23 Rx Allergies Allergy/AdvReac Type Severity Reaction Status Date / Time prochlorperazine Allergy Mild Jittery Verified 10/15/23 09:50 indomethacin Allergy Unknown Nausea, Verified 10/15/23 09:50 HEADACHE Vital Signs Vital Signs - 24 hr 03/06/24 18:48 03/06/24 19:59 03/06/24 19:59 Temperature 97.5 F L Pulse Rate 73 77 Respiratory Rate 16 Blood Pressure 141/58 H Pulse Oximetry 98 98 Oxygen Delivery Room Air 03/06/24 20:00 03/06/24 20:10 03/06/24 20:28 Temperature 98 F Pulse Rate 80 82 Respiratory Rate 18 Blood Pressure 117/85 140/71 Pulse Oximetry 98 98 Oxygen Delivery Room Air 03/06/24 20:30 03/06/24 20:32 03/06/24 20:54 Temperature 98 F Pulse Rate 87 92 76 Respiratory Rate 16 Blood Pressure 145/83 H 128/65 140/57 L Pulse Oximetry 97 Oxygen Delivery 03/06/24 21:38 Temperature 97.6 F Pulse Rate 79 Respiratory Rate 16 Blood Pressure 137/67 Pulse Oximetry 96 Oxygen Delivery Exam Const: General: comfortable and no acute distress Other: A&O x3 HENMT: Mouth: Yes dry mucous membranes Eyes: Pupils: Equal, round and reactive pupils present Neck: Neck: supple Resp: Effort & Inspection: normal respiratory effort Auscultation: clear to auscultation bilaterally Cardio: Rate: regular rate Rhythm: regular rhythm Heart sounds: no gallops, no murmurs and no rubs GI: GI Palp: Yes Soft to palpation and No Tenderness to palpation present (GI) : General: Yes bladder normal to palpation Extrem: General: no edema H&P: Results Labs Labs: Short CBC 03/06/24 Range/Units 20:08 WBC 9.6 (4.5-10.0) K/mm3 Hgb 12.2 (12.0-15.0) g/dL Hct 36.6 L (37.0-47.0) % Plt Count 277 (150-375) k/mm3 BMP 03/06/24 20:08 Sodium 135 L Potassium 4.1 Chloride 97 L Carbon Dioxide 27 BUN 38 H D Creatinine 1.10 H Glucose 109 Calcium 9.6 Cardiac Enzymes 03/06/24 Range/Units 20:08 Troponin I 0.070 H* (0.000-0.034) ng/mL Liver Function 03/06/24 Range/Units 20:08 Total Bilirubin 0.3 (0.2-1.3) mg/dL AST 23 (14-36) U/L ALT 14 (6-35) U/L Alkaline Phosphatase 139 H (38-126) U/L Albumin 4.4 (3.5-5.1) g/dL Urine 03/06/24 Range/Units 20:17 Urine Color Yellow (Yellow) Urine Appearance Clear (Clear) Urine pH 5.0 (5.0-9.0) Ur Specific [place] 1.012 (1.001-1.035) Urine Protein Negative (Negative) mg/dL Urine Glucose (UA) Negative (Negative) mg/dL Assessment and Plan Assessment and plan (1) Orthostatic hypotension: Code(s): I95.1 - Orthostatic hypotension Status: Acute (2) Elevated troponin: Code(s): R79.89 - Other specified abnormal findings of blood chemistry Status: Acute (3) RUKHSANA (acute kidney injury): Code(s): N17.9 - Acute kidney failure, unspecified Status: Acute (4) Syncope: Code(s): R55 - Syncope and collapse Status: Acute Plan 78-year-old female with a H hypertension, hyperthyroidism, dyslipidemia, sleep apnea, asthma, hyperthyroidism, history of SBO, history of syncope, lymphedema on Lasix. On the day of admission 03/06/2024 the patient reports she had a very eventful day around the house and did not drink as much water as usual. She has been taking her Lasix as well for lymphedema. She intermittently uses knee-high compression stockings. She was standing in the kitchen making dinner when she was witnessed to be weak, family member lowered her to the floor reported she did lose consciousness. She came to shortly after. There was no aura, no seizure activity, no trauma. ER evaluation demonstrated positive orthostatic hypotension. She had dry mucous membranes. She also has a BUN 38 a serum creatinine of 1.10. Troponin 0.070 which is lower than her last. EKG without acute ischemia. Sinus rhythm. She is given 1 L normal saline bolus. Afterwards, the patient reports feeling better however she had not ambulated. Hospice service requested for admission for observation for syncope. ----- The cause of the patient's syncope is likely dehydration and adverse effects of Lasix. Vasovagal response may be playing a component as well. She received 1 L normal saline bolus in the ER. Continue at 150 cc/hour. Continue checking orthostatics Q shift. The patient was taking Lasix for lymphedema. Advised her to discontinue this, she reports she was already wondering if she should discontinue it. She has knee-high and thigh-high compression stockings. Advised the patient she could upgrade to waist high compression stockings to help with orthostasis as well. Further behavioral Education should be continued on orthostasis. Apply abdominal binder if needed. In the setting of syncope will continue telemetry. She had an episode of syncope on the last admission and September 2023 when she had nausea and SBO. Of note, she has stopped Wegovy since our last discussion in September. Troponin elevation is likely due to demand ischemia in the setting of syncope. It is lower than the last time as well. Will continue to trend troponin for thoroughness. Continue to trend renal function status post fluid resuscitation. She has a mild RUKHSANA with an elevated BUN creatinine ratio. Home medications will be restarted as appropriate. Lasix discontinued. ----- SCDs. Regular diet. Patient would like to be full code. Hospitalist MIPS Advance Care Plan I have confirmed that the patient's Advanced Care Plan is present, code status is documented, or surrogate decision maker is listed in patient medical record.: Yes Medication Reconciliation I have utilized all available resources to obtain, update and review the patients current medications (includes all prescriptions, OTC, herbals, cannabis, and nutritional supplements).: Yes
--- NOTE | 2024-03-06 22:40 | ADMGEN ---
This patient, Sarah Dupont, was admitted to IMU Room 231-01 at 2235. Patient/family oriented to hospital policies and general routines including ID bracelet, bed and alarms, visiting hours, pain management, procedures, bathroom and other care routines, personal items, smoking policy, room service/diet, and visiting hours. Information on how to activate the Rapid Response Team has been discussed. Patient/Family are encouraged to report perceived risks to care and to ask questions if they do not understand what they are told or what they should do.
[2024-03-07] VITALS (12 sets, daily range): BP systolic 130–155; BP diastolic 41–72; PULSE 64–97; RESP 16–20; TEMP 36.4–37.1; O2SAT 95–99
[2024-03-07] MEDS: SODIUM CHLORIDE 0.9% IV 1,000 ML 150 ML IV CONT ×2 (00:27→08:33)
[2024-03-07] MEDS: PANTOPRAZOLE 40 MG TABLET PO (08:34)
[2024-03-07] MEDS: CHOLECALCIFEROL 1,000 UNITS TABLET 1000 UNITS PO (08:34)
--- NOTE | 2024-03-07 10:47 | P.PNIM_ITS ---
Progress Note: A&P Assessment and Plan (1) Orthostatic hypotension: Code(s): I95.1 - Orthostatic hypotension Status: Acute (2) Elevated troponin: Code(s): R79.89 - Other specified abnormal findings of blood chemistry Status: Acute (3) RUKHSANA (acute kidney injury): Code(s): N17.9 - Acute kidney failure, unspecified Status: Acute (4) Syncope: Code(s): R55 - Syncope and collapse Status: Acute Plan 78-year-old female with a H hypertension, hyperthyroidism, dyslipidemia, sleep apnea, asthma, hyperthyroidism, history of SBO, history of syncope, lymphedema on Lasix. On the day of admission 03/06/2024 the patient reports she had a very eventful day around the house and did not drink as much water as usual. She has been taking her Lasix as well for lymphedema. She intermittently uses knee-high compression stockings. She was standing in the kitchen making dinner when she was witnessed to be weak, family member lowered her to the floor reported she did lose consciousness. She came to shortly after. There was no aura, no seizure activity, no trauma. ER evaluation demonstrated positive orthostatic hypotension. She had dry mucous membranes. She also has a BUN 38 a serum creatinine of 1.10. Troponin 0.070 which is lower than her last. EKG without acute ischemia. Sinus rhythm. She is given 1 L normal saline bolus. Afterwards, the patient reports feeling better however she had not ambulated. Hospice service requested for admission for observation for syncope. ----- The cause of the patient's syncope is likely dehydration and adverse effects of Lasix. Vasovagal response may be playing a component as well. She received 1 L normal saline bolus in the ER. Continue at 150 cc/hour. Continue checking orthostatics Q shift. The patient was taking Lasix for lymphedema. Advised her to discontinue this, she reports she was already wondering if she should discontinue it. She has knee-high and thigh-high compression stockings. Advised the patient she could upgrade to waist high compression stockings to help with orthostasis as well. Further behavioral Education should be continued on orthostasis. Apply abdominal binder if needed. In the setting of syncope will continue telemetry. She had an episode of syncope on the last admission and September 2023 when she had nausea and SBO. Of note, she has stopped Wegovy since our last discussion in September. Troponin elevation is likely due to demand ischemia in the setting of syncope. It is lower than the last time as well. Will continue to trend troponin for thoroughness. Continue to trend renal function status post fluid resuscitation. She has a mild RUKHSANA with an elevated BUN creatinine ratio. Home medications will be restarted as appropriate. Lasix discontinued. ----- SCDs. Regular diet. Patient would like to be full code. Subjective Date/time seen: 03/07/24 10:47 Interval history: Patient was recently admitted in Sep, 2023 due to syncopal episode but last time it was diagnosed as due to dehydration and constipation from Wegovy and it was discontinued. Yesterday she was doing her routine and felt dizzy while cooking and reports short episode of LOC without any aura,seizure activity or head trauma. Patient also reports previously she was evaluated for Multiple PVC's but doesnt the time frame and what was the plan followed. Patient also has remote history of 2 TIA's in the past. Ordered CT head and US doppler to r/o CVA.Patient Lasix is been suspended which she takes for lymphedema. Patient has Orthostatic hypotension ,Midodrine is added but agree with cardiology recommendation and dc due to increased chances of HTN. Given instruction to avoid ortho static hypotension. Cardiology was consulted to exclude reasons for exertional syncope vs arrhythmias. Review of Systems Review of Systems: All systems reviewed & are unremarkable except as noted in HPI and below (Subjective) Exam Const: General: comfortable and no acute distress Other: A&O x3 HENMT: Mouth: Yes dry mucous membranes Eyes: Pupils: Equal, round and reactive pupils present Neck: Neck: supple Resp: Effort & Inspection: normal respiratory effort Auscultation: clear to auscultation bilaterally Cardio: Rate: regular rate Rhythm: regular rhythm Heart sounds: no gallops, no murmurs and no rubs : General: Yes bladder normal to palpation Bimanual exam- vagina & uterus: bladder normal to palpation Neuro: Cranial nerves: Yes Equal, round and reactive pupils present Extrem: General: no edema Objective Data Vital Signs Vital Signs: Vital Signs - 24 hr 03/06/24 18:48 03/06/24 19:59 03/06/24 19:59 Temperature 97.5 F L Pulse Rate 73 77 Respiratory Rate 16 Blood Pressure 141/58 H Pulse Oximetry 98 98 Oxygen Delivery Room Air 03/06/24 20:00 03/06/24 20:10 03/06/24 20:28 Temperature 98 F Pulse Rate 80 82 Respiratory Rate 18 Blood Pressure 117/85 140/71 Pulse Oximetry 98 98 Oxygen Delivery Room Air 03/06/24 20:30 03/06/24 20:32 03/06/24 20:54 Temperature 98 F Pulse Rate 87 92 76 Respiratory Rate 16 Blood Pressure 145/83 H 128/65 140/57 L Pulse Oximetry 97 Oxygen Delivery 03/06/24 21:38 03/06/24 22:26 03/06/24 23:21 Temperature 97.6 F 97.3 F L Pulse Rate 79 75 75 Respiratory Rate 16 16 16 Blood Pressure 137/67 143/64 H 168/72 H Pulse Oximetry 96 97 100 Oxygen Delivery 03/06/24 23:24 03/07/24 00:00 03/07/24 00:00 Temperature 97.3 F L Pulse Rate 75 84 Respiratory Rate Blood Pressure 168/72 H Pulse Oximetry 100 Oxygen Delivery Room Air 03/07/24 04:20 03/07/24 04:00 03/07/24 05:59 Temperature 97.6 F Pulse Rate 97 82 Respiratory Rate 16 Blood Pressure 150/63 H Pulse Oximetry 95 Oxygen Delivery Room Air 03/07/24 07:59 03/07/24 08:00 03/07/24 09:00 Temperature 98.0 F 98.3 F Pulse Rate 85 89 84 Respiratory Rate 20 18 Blood Pressure 149/48 H 150/53 H Pulse Oximetry 96 98 Oxygen Delivery 03/07/24 09:02 03/07/24 09:02 03/07/24 08:00 Temperature Pulse Rate 88 91 91 Respiratory Rate 18 Blood Pressure 149/54 H 130/72 Pulse Oximetry 97 98 98 Oxygen Delivery Room Air 03/06/24 23:32 Temperature 97.3 F L Pulse Rate Respiratory Rate Blood Pressure 168/72 H Pulse Oximetry 100 Oxygen Delivery Intake/Output Intake/Output: Intake & Output 03/04/24 03/05/24 03/06/24 03/07/24 23:59 23:59 23:59 23:59 Intake Total 1000 2140 Balance 1000 2140 Meds/Results Medications: Active Medications Generic Name Dose Route Start Last Admin Trade Name Freq PRN Reason Stop Dose Admin Acetaminophen 650 mg 03/06/24 21:34 Acetaminophen 325 Mg Tablet PO Q4H PRN Mild Pain (1-3) or Fever Albuterol 1 puff 03/07/24 02:05 Albuterol Sulfate (*Sp) Aerosol 1 Puff INHALATION Q4HRT PRN shortness of breath or wheezing Sodium Chloride 1,000 mls @ 150 mls/hr 03/06/24 21:35 03/07/24 08:33 Normal Saline Iv IV CONT 150 mls/hr .[id number] RIVERA Administration Methimazole 10 mg 03/07/24 10:35 Methimazole 10 Mg Tab BY MOUTH [id number] RIVERA Methimazole 20 mg 03/08/24 09:00 Methimazole 10 Mg Tab BY MOUTH [email or web address] RIVERA Midodrine 5 mg 03/07/24 10:30 Midodrine Hcl 2.5 Mg Tablet PO TID RIVERA Pantoprazole Sodium 40 mg 03/07/24 09:00 03/07/24 08:34 Pantoprazole 40 Mg Tablet PO 40 mg Q12HR RIVERA Administration Prednisolone Acetate 1 drop 03/07/24 09:00 03/07/24 08:33 Prednisolone Acetate 1% Ophth 5 Ml EACH EYE Not Given DAILY [facility] Vitamin D 1,000 units 03/07/24 09:00 03/07/24 08:34 Cholecalciferol 1,000 Units Tablet PO 1,000 units DAILY RIVERA Administration Radiology Results: ITS Impressions Chest X-Ray 03/06/24 20:27 IMPRESSION: Elevation of the right hemidiaphragm adjacent compressive atelectasis, without focal infiltrate or effusion. Labs Labs: Laboratory Results - last 24 hr 03/06/24 03/06/24 03/07/24 20:08 20:17 01:00 WBC 9.6 RBC 4.56 Hgb 12.2 Hct 36.6 L MCV 80.3 MCH 26.8 MCHC 33.3 RDW 13.1 Plt Count 277 MPV 9.9 Immature Gran % (Auto) 0.3 Neut % (Auto) 77.0 H Lymph % (Auto) 15.9 L [place] % (Auto) 4.8 Eos % (Auto) 1.7 Baso % (Auto) 0.3 Lymph # (Auto) 1.53 [place] # (Auto) 0.5 Eos # (Auto) 0.2 Baso # (Auto) 0.0 Abs Immat Gran (auto) 0.03 Absolute Neuts (auto) 7.4 H Absolute Nucleated RBC 0.000 Nucleated RBC % 0.0 PT 14.2 INR 1.1 APTT 28.9 Sodium 135 L Potassium 4.1 Chloride 97 L Carbon Dioxide 27 Anion Gap 11 BUN 38 H D Creatinine 1.10 H Estim Creat Clear Calc Not Reportable Estimated GFR 48 L Glucose 109 Calcium 9.6 Magnesium 2.0 Total Bilirubin 0.3 AST 23 ALT 14 Alkaline Phosphatase 139 H Troponin I 0.070 H* 0.050 H* D Total Protein 8.0 Albumin 4.4 Urine Color Yellow Urine Appearance Clear Urine pH 5.0 Ur Specific [place] 1.012 Urine Protein Negative Urine Glucose (UA) Negative Urine Ketones Negative Ur Blood (Man) Trace Urine Nitrate Negative Urine Bilirubin Negative Urine Urobilinogen 0.2 Leukocyte Esterase Rfl Negative Urine RBC 0-2 Urine WBC 0-5 Ur Squamous Epith Cells None seen Urine Bacteria None seen Urine Casts 0-2 Hospitalist MIPS Advance Care Plan I have confirmed that the patient's Advanced Care Plan is present, code status is documented, or surrogate decision maker is listed in patient medical record.: Yes Medication Reconciliation I have utilized all available resources to obtain, update and review the patients current medications (includes all prescriptions, OTC, herbals, cannabis, and nutritional supplements).: Yes
[2024-03-07] MEDS: methiMAzole 10 MG TAB BY MOUTH (11:02)
[2024-03-07] MEDS: MIDODRINE HCL 2.5 MG TABLET 5 MG PO ×2 (11:03→13:38)
[2024-03-07] MEDS: ACETAMINOPHEN 325 MG TABLET 650 MG PO (13:38)
--- NOTE | 2024-03-07 13:48 | P.CONCA_ITS ---
Assessment and Plan Assessment and plan (1) Syncope: Code(s): R55 - Syncope and collapse Status: Acute Assessment and Plan: Probably secondary to orthostatic hypotension in the setting of dehydration. Agree with IV fluids. She has been started on midodrine, but I do not see any significant drops in SBP documented with orthostatic vital signs, so in order to avoid unnecessary hypertension, would not recommend continuing this. No evidence of arrhythmias on telemetry that would explain telemetry. (2) PVC (premature ventricular contraction): Code(s): I49.3 - Ventricular premature depolarization Status: Acute Assessment and Plan: Stated reason for consult is PVC's. She does not have any PVC's noted on telemetry. Alarms marked as PVC's show artifact. Plan Cardiology will sign off. Can be discharged from a cardiac standpoint. History of Present Illness History of Present Illness Consult date/time: 03/07/24 13:48 Requesting physician: Merritt Roberts MD Consult reason: Other (PVC's, syncope) Reason For Visit: ORTHOSTATIC HYPOTENSION, RUKHSANA, ELEVATED TROPONIN Narrative: Sarah Dupont is a 78 year old female admitted to the hospital because of syncope. She has a history of vasovagal syncope when she had a small bowel obstruction earlier this year. She has not had problem with syncope since that time. She reports working in her house all day unpacking boxes for about 8 hours. She did not drink any water all day. She was standing in the kitchen when she began to feel weak and nauseous. Her son and daughter in law were there and helped lower her to the ground. She does not think she lost consciousness but she says she can't be sure. She denies any shortness of breath, chest pain, or palpitations. Review of Systems Review of Systems: All systems reviewed & are unremarkable except as noted in HPI and below Constitutional: Constitutional: Denies chills, Denies fever(s), Denies headache(s) and Denies malaise Eyes: Eyes: Denies change in vision ENT: Reports Normal hearing present, Denies dizziness, Denies headache(s) and Denies hearing loss Cardiovascular: Cardiovascular: Denies chest pain, Denies chest pain at rest, Denies chest pain with activity, Denies syncope, Denies leg edema, Denies pal pitations, Denies dyspnea and Denies dyspnea on exertion Respiratory: Respiratory: Denies cough, Denies dyspnea, Denies dyspnea on exertion and Denies wheezing Gastrointestinal: Gastrointestinal: Denies abdominal pain, Denies constipation and Denies diarrhea Genitourinary: Genitourinary: Denies hematuria and Denies dysuria Musculoskeletal: Musculoskeletal: Denies myalgias, Denies arthralgias and Denies muscle cramps Integumentary/Breasts: Skin/Breast: Denies wounds Neurologic: Reports Normal hearing present, Denies confusion, Denies dizziness, Denies syncope and Denies headache(s) Psychiatric: Psychiatric: Denies anxiety, Denies confusion and Denies depression Endocrine: Endocrine: Denies cold intolerance, Denies flushing, Denies heat intolerance and Denies palpitations Hematologic/Lymphatic: Hematologic/Lymphatic: Denies easy bleeding and Denies easy bruising Allergic/Immunologic: Allergic/Immunologic: Denies wheezing PMFSH Past Medical History Medical History Colon cancer Essential hypertension Hyperlipidemia Hyperthyroidism Lymphedema Mild persistent asthma without complication Obstructive sleep apnea Pulmonary nodule Surgical History Surgical History History of cataract extraction History of section History of colonoscopy with polypectomy Malignant polyp completely removed. History of hysterectomy History of inguinal hernia repair History of tonsillectomy Family History Family History Mother Asthma Chronic obstructive pulmonary disease Father Chronic obstructive pulmonary disease Sibling Coronary artery disease Hx of CABG Sibling Lupus Social History Social History Social History: Surrogate medical decision maker: Alok (spouse) or Alessandro (son) Cresencio. Code status: Full code. Smoking status: Never smoker Second hand tobacco smoke exposure: Yes (As a child) Alcohol intake: never Substance use: never Substance use type: does not use Do You Feel Safe in your Home?: Yes Lack of Transportation: No Lack of Food: Never True Current Housing: I Have Housing Concerned About Future Housing: No Difficulty Paying Gas/Electric Bills: No Difficulty Paying for Meds: No Currently Unemployed: No Education: Master's Degree or Higher Difficulty w/ Childcare or Family Care: No Living arrangements: with family Occupation/Education: retired Spiritual care concerns: No Agree to blood products: Yes Meds Home Medications and Allergies Home Medications Medication Instructions Recorded Confirmed Type methimazole 10 mg tablet (Tapazole) See Rx Instructions .Route .COMPLEX 10/28/20 03/06/24 History albuterol sulfate 90 mcg/actuation 1 inh inhalation Q4H PRN shortness 12/19/21 03/06/24 Rx aerosol inhaler of breath or wheezing #8.5 grams calcium carbonate (Calcium 500) 500 mg PO DAILY 12/19/21 03/06/24 History cholecalciferol (vitamin D3) 25 25 mcg PO DAILY 12/19/21 03/06/24 History mcg (1,000 unit) capsule acetaminophen 650 mg 650 mg PO BID 07/24/22 03/06/24 History tablet,extended release celecoxib 100 mg capsule (Celebrex) 100 mg PO BID #180 caps 09/28/23 03/06/24 Rx furosemide 40 mg tablet 40 mg PO DAILY 09/30/23 03/06/24 History pantoprazole 40 mg tablet,delayed 40 mg PO BID 09/30/23 03/06/24 History release potassium chloride 10 mEq 10 meq PO DAILY #90 caps 11/14/23 03/06/24 Rx capsule,extended release gemfibrozil 600 mg tablet 600 mg PO BID 03/06/24 03/06/24 History netarsudil 0.02 %-latanoprost 1 drp EACH EYE DAILY 03/06/24 03/06/24 History 0.005 % eye drops (Rocklatan) prednisolone acetate 1 % eye 1 drp EACH EYE DAILY 03/06/24 03/06/24 History drops,suspension ramipril 5 mg capsule 5 mg PO BID #60 caps 03/07/24 Rx Allergies Allergy/AdvReac Type Severity Reaction Status Date / Time prochlorperazine Allergy Mild Jittery Verified 10/15/23 09:50 indomethacin Allergy Unknown Nausea, Verified 10/15/23 09:50 HEADACHE Vital Signs Vital Signs - 24 hr 03/06/24 18:48 03/06/24 19:59 03/06/24 19:59 Temperature 36.4 C L Pulse Rate 73 77 Respiratory Rate 16 Blood Pressure 141/58 H Pulse Oximetry 98 98 Oxygen Delivery Room Air 03/06/24 20:00 03/06/24 20:10 03/06/24 20:28 Temperature 36.6 C Pulse Rate 80 82 Respiratory Rate 18 Blood Pressure 117/85 140/71 Pulse Oximetry 98 98 Oxygen Delivery Room Air 03/06/24 20:30 03/06/24 20:32 03/06/24 20:54 Temperature 36.6 C Pulse Rate 87 92 76 Respiratory Rate 16 Blood Pressure 145/83 H 128/65 140/57 L Pulse Oximetry 97 Oxygen Delivery 03/06/24 21:38 03/06/24 22:26 03/06/24 23:21 Temperature 36.4 C 36.3 C L Pulse Rate 79 75 75 Respiratory Rate 16 16 16 Blood Pressure 137/67 143/64 H 168/72 H Pulse Oximetry 96 97 100 Oxygen Delivery 03/06/24 23:24 03/07/24 00:00 03/07/24 00:00 Temperature 36.3 C L Pulse Rate 75 84 Respiratory Rate Blood Pressure 168/72 H Pulse Oximetry 100 Oxygen Delivery Room Air 03/07/24 04:20 03/07/24 04:00 03/07/24 05:59 Temperature 36.4 C Pulse Rate 97 82 Respiratory Rate 16 Blood Pressure 150/63 H Pulse Oximetry 95 Oxygen Delivery Room Air 03/07/24 07:59 03/07/24 08:00 03/07/24 09:00 Temperature 36.7 C 36.8 C Pulse Rate 85 89 84 Respiratory Rate 20 18 Blood Pressure 149/48 H 150/53 H Pulse Oximetry 96 98 Oxygen Delivery 03/07/24 09:02 03/07/24 09:02 03/07/24 08:00 Temperature Pulse Rate 88 91 Respiratory Rate Blood Pressure 149/54 H 130/72 Pulse Oximetry 97 98 Oxygen Delivery Room Air 03/07/24 10:00 03/07/24 11:50 03/07/24 12:00 Temperature 37.1 C Pulse Rate 82 78 Respiratory Rate 18 Blood Pressure 155/41 H Pulse Oximetry 99 Oxygen Delivery Room Air 03/07/24 12:00 03/06/24 23:32 Temperature 36.3 C L Pulse Rate 74 Respiratory Rate Blood Pressure 168/72 H Pulse Oximetry 100 Oxygen Delivery Exam Const: General: comfortable, no acute distress, alert and awake Orientation/consciousness: patient oriented x3 HENMT: Head: normal to inspection Eyes: General: appearance normal, both eyes and all related structures Pupils: Equal, round and reactive pupils present Neck: Neck: normal visual inspection, supple and no JVD Carotids: normal carotid upstroke Resp: Effort & Inspection: normal respiratory effort Auscultation: clear to auscultation bilaterally Cardio: Rate: regular rate Rhythm: regular rhythm Heart sounds: S1 normal heart sound present, S2 normal heart sound present and no murmurs GI: Auscultation: normal bowel sounds Skin: General skin exam: normal color Neuro: General: patient oriented x3 Cranial nerves: Yes Equal, round and reactive pupils present Extrem: General: normal to inspection Psych: Appearance: grossly normal Mental Status: mental status grossly normal Results Labs and Meds 03/06/24 20:08 03/06/24 20:08 Lab results: Cardiac Enzymes 03/06/24 03/07/24 Range/Units 20:08 01:00 AST 23 (14-36) U/L Troponin I 0.070 H* 0.050 H* D (0.000-0.034) ng/mL Coagulation 03/06/24 Range/Units 20:08 PT 14.2 (11.1-14.7) Seconds APTT 28.9 (22.3-36.8) Seconds CBC 03/06/24 Range/Units 20:08 WBC 9.6 (4.5-10.0) K/mm3 RBC 4.56 (4.2-5.4) M/mm3 Hgb 12.2 (12.0-15.0) g/dL Hct 36.6 L (37.0-47.0) % Plt Count 277 (150-375) k/mm3 Lymph # (Auto) 1.53 (0.9-3.2) K/mm3 Saline # (Auto) 0.5 (0.1-0.6) K/mm3 Eos # (Auto) 0.2 (0-0.3) K/mm3 Baso # (Auto) 0.0 (0.0-0.1) K/mm3 Comprehensive Metabolic Panel 03/06/24 Range/Units 20:08 Sodium 135 L (137-145) mmol/L Potassium 4.1 (3.4-5.0) mmol/L Chloride 97 L (98-107) mmol/L Carbon Dioxide 27 (22-30) mmol/L BUN 38 H D (7-17) mg/dL Creatinine 1.10 H (0.7-1.0) mg/dL Glucose 109 (65-110) mg/dL Calcium 9.6 (8.4-10.2) mg/dL AST 23 (14-36) U/L ALT 14 (6-35) U/L Alkaline Phosphatase 139 H (38-126) U/L Total Protein 8.0 (6.3-8.2) g/dL Albumin 4.4 (3.5-5.1) g/dL Intake and Output 03/06/24 03/07/24 03/07/24 23:59 07:59 15:59 Intake Total 1000 1780 600 Balance 1000 1780 600 Intake: IV 1000 1000 Sodium Chloride 0.9% IV 1,000 1000 1000 ml @ 150 mls/hr IV CONT .Q6H40M [facility] Rx#:[id number] Oral 780 600 Other: # Unmeasured Voids 2 Patient Weight 03/07/24 23:59 Weight 81 kg
--- NOTE | 2024-03-07 17:53 | P.DS_ITS ---
DS: Admitting Diagnosis Discharge Date 03/07/2024 Admitting Diagnosis Syncope DS: Discharge Diagnosis Discharge Diagnosis (1) Orthostatic hypotension: Code(s): I95.1 - Orthostatic hypotension Status: Acute (2) Elevated troponin: Code(s): R79.89 - Other specified abnormal findings of blood chemistry Status: Acute (3) RUKHSANA (acute kidney injury): Code(s): N17.9 - Acute kidney failure, unspecified Status: Acute (4) Syncope: Code(s): R55 - Syncope and collapse Status: Acute DS: Summary Hospital Course Hospital Course: 78-year-old female with a H hypertension, hyperthyroidism, dyslipide jay jay, sleep apnea, asthma, hyperthyroidism, history of SBO, history of syncope, lymphedema on Lasix. On the day of admission 03/06/2024 the patient reports she had a very eventful day around the house and did not drink as much water as usual. She has been taking her Lasix as well for lymphedema. She intermittently uses knee-high compression stockings. She was standing in the kitchen making dinner when she was witnessed to be weak, family member lowered her to the floor reported she did lose consciousness. She came to shortly after. There was no aura, no seizure activity, no trauma. ER evaluation demonstrated positive orthostatic hypotension. She had dry mucous membranes. She also has a BUN 38 a serum creatinine of 1.10. Troponin 0.070 which is lower than her last. EKG without acute ischemia. Sinus rhythm. She is given 1 L normal saline bolus. Afterwards, the patient reports feeling better however she had not ambulated. Hospice service requested for admission for observation for syncope. ----- The cause of the patient's syncope is likely dehydration and adverse effects of Lasix. Vasovagal response may be playing a component as well. She received 1 L normal saline bolus in the ER. Continue at 150 cc/hour. Continue checking orthostatics Q shift. The patient was taking Lasix for lymphedema. Advised her to discontinue this, she reports she was already wondering if she should discontinue it. She has knee-high and thigh-high compression stockings. Advised the patient she could upgrade to waist high compression stockings to help with orthostasis as well. Further behavioral Education should be continued on orthostasis. Apply abdominal binder if needed. In the setting of syncope will continue telemetry. She had an episode of syncope on the last admission and September 2023 when she had nausea and SBO. Of note, she has stopped Wegovy since our last discussion in September. Troponin elevation is likely due to demand ischemia in the setting of syncope. It is lower than the last time as well. Will continue to trend troponin for thoroughness. Continue to trend renal function status post fluid resuscitation. She has a mild RUKHSANA with an elevated BUN creatinine ratio. Patient was recently admitted in Sep, 2023 due to syncopal episode but last time it was diagnosed as due to dehydration and constipation from Wegovy which was discontinued. Yesterday she was doing her routine and felt dizzy while cooking and reports short episode of LOC without any aura,seizure activity or head trauma. Patient also reports previously she was evaluated for Multiple PVC's but doesnt the time frame and what was the plan followed. Patient also has remote history of 2 TIA's in the past. Ordered CT head and US doppler to r/o CVA.Patient Lasix is been suspended which she takes for lymphedema. Patient has Orthostatic hypotension ,Midodrine is added but agree with cardiology recommendation and dc due to increased chances of HTN. Given instruction to avoid ortho static hypotension. CT head and carotid Doppler shows no significant findings. Cardiology was consulted to exclude reasons for exertional syncope vs arrhythmias and and believes syncope due to orthostatic. Patient is currently discharged and advised to return to ED if any incidence of syncope happens again. Status at Discharge Cognitive/behavioral status at discharge: Stable Time Spent with Patient Time attestation: Total time spent providing and/or coordinating discharge services: 45 minutes Exam Const: General: comfortable and no acute distress Other: A&O x3 HENMT: Mouth: Yes dry mucous membranes Eyes: Pupils: Equal, round and reactive pupils present Neck: Neck: supple Resp: Effort & Inspection: normal respiratory effort Auscultation: clear to auscultation bilaterally Cardio: Rate: regular rate Rhythm: regular rhythm Heart sounds: no gallops, no murmurs and no rubs : General: Yes bladder normal to palpation Bimanual exam- vagina & uterus: bladder normal to palpation Neuro: Cranial nerves: Yes Equal, round and reactive pupils present Extrem: General: no edema DS: Data Data Completed and Pending Labs on day of discharge: Labs from last 24 hours 03/07/24 03/06/24 03/06/24 01:00 20:17 20:08 WBC 9.6 RBC 4.56 Hgb 12.2 Hct 36.6 L MCV 80.3 MCH 26.8 MCHC 33.3 RDW 13.1 Plt Count 277 MPV 9.9 Immature Gran % (Auto) 0.3 Neut % (Auto) 77.0 H Lymph % (Auto) 15.9 L [place] % (Auto) 4.8 Eos % (Auto) 1.7 Baso % (Auto) 0.3 Lymph # (Auto) 1.53 [place] # (Auto) 0.5 Eos # (Auto) 0.2 Baso # (Auto) 0.0 Abs Immat Gran (auto) 0.03 Absolute Neuts (auto) 7.4 H Absolute Nucleated RBC 0.000 Nucleated RBC % 0.0 PT 14.2 INR 1.1 APTT 28.9 Sodium 135 L Potassium 4.1 Chloride 97 L Carbon Dioxide 27 Anion Gap 11 BUN 38 H D Creatinine 1.10 H Estim Creat Clear Calc Not Reportable Estimated GFR 48 L Glucose 109 Calcium 9.6 Magnesium 2.0 Total Bilirubin 0.3 AST 23 ALT 14 Alkaline Phosphatase 139 H Troponin I 0.050 H* D 0.070 H* Total Protein 8.0 Albumin 4.4 Urine Color Yellow Urine Appearance Clear Urine pH 5.0 Ur Specific [place] 1.012 Urine Protein Negative Urine Glucose (UA) Negative Urine Ketones Negative Ur Blood (Man) Trace Urine Nitrate Negative Urine Bilirubin Negative Urine Urobilinogen 0.2 Leukocyte Esterase Rfl Negative Urine RBC 0-2 Urine WBC 0-5 Ur Squamous Epith Cells None seen Urine Bacteria None seen Urine Casts 0-2 Discharge Plan Discharge Attending physician on discharge: Merritt Roberts Consulting providers: Loy Clemons Discharging Clinician: Merritt Roberts Patient Disposition: Home, Self-Care Activity: as tolerated Diet: heart healthy Discharge Instructions: Give yourself more time to stand up after sitting or lying down. Hydrate well Wear compression stockings or an abdominal binder to improve blood circulation and pressure? Lasix has been discontinued, if necessary can be continued as per PCP discretion Patient Instructions: Antibiotic Form, Acute Kidney Injury (GEN), High Troponin Levels (GEN) Stand Alone Forms: General Discharge Information Follow-up/Referrals: Crys Zepeda MD [Primary Care Provider] - 1 Week (Please evaluate the patient. Lasix has been discontinued, if necessary can be continued as per PCP discretion) Loy Clemons MD [Physician] - 4 Weeks Discharge Medications: Continued acetaminophen 650 mg Tablet Extended Release 650 mg PO BID calcium carbonate [Calcium 500] 500 mg calcium (1,250 mg) tablet,chewable 500 mg PO DAILY cholecalciferol (vitamin D3) 25 mcg (1,000 unit) capsule 25 mcg PO DAILY albuterol sulfate 90 mcg/actuation HFA aerosol inhaler 1 inh inhalation Q4H PRN (Reason: shortness of breath or wheezing) Qty: 8.5 1RF pantoprazole 40 mg tablet,delayed release (DR/EC) 40 mg PO BID prednisolone acetate 1 % drops,suspension 1 drp EACH EYE DAILY gemfibrozil 600 mg tablet 600 mg PO BID Rocklatan 0.02-0.005 % drops 1 drp EACH EYE DAILY methimazole [Tapazole] 10 mg tablet See Rx Instructions .ROUTE .COMPLEX Rx Instructions: Pt takes 10mg PO Sunday through Sunday and takes 20mg PO on Saturdays and Sundays. celecoxib [Celebrex] 100 mg capsule 100 mg PO BID Qty: 180 1RF Hold Instructions: Discussed the side effects of this medication with your primary care physician potassium chloride 10 mEq capsule, extended release 10 meq PO DAILY Qty: 90 1RF ramipril 5 mg capsule 5 mg PO BID Qty: 60 5RF Discontinued furosemide 40 mg tablet 40 mg PO DAILY Date of admission: 03/06/24 21:34 Primary Care Provider: Crys Zepeda Admitting Provider: Khadra Eng Attending physician on admission: Khadra Eng Condition: Stable
== END 2024-03-07 17:48 | disposition home or self-care (01) ==
LOC: ANHED 21:50 → ANHIMU 22:56
PROVIDERS: Admitting Provider General Practice; Emergency Provider Emergency Medicine; PCP Family Medicine; Visit Provider General Practice
DX: I95.1 Orthostatic hypotension (principal); I49.3 Ventricular premature depolarization; N17.9 Acute kidney failure, unspecified; R79.89 Other specified abnormal findings of blood chemistry; I10 Essential (primary) hypertension; E78.5 Hyperlipidemia, unspecified; I89.0 Lymphedema, not elsewhere classified; J45.30 Mild persistent asthma, uncomplicated; G47.33 Obstructive sleep apnea (adult) (pediatric); E05.90 Thyrotoxicosis, unspecified without thyrotoxic crisis or storm; Z85.038 Personal history of other malignant neoplasm of large intestine; Z79.51 Long term (current) use of inhaled steroids
CPT/HCPCS: 36415; 70450; 71045; 80053; 81001; 83735; 84484; 85025; 85610; 85730; 93005; 93880; 96360; 96361; 99285; A9270; G0378; J7030

== ENCOUNTER 2024-09-23 10:33 | Outpatient (CLI) | payer MEDICARE, SELFPAY ==
--- NOTE | ~2024-09-23 | MMUS_ITS ---
EXAMINATION: MM diagnostic edwardo BI w robbie, US breast LT limited HISTORY: Left breast lump TECHNIQUE: 3-D tomosynthesis images of the breasts were performed and synthetic 2-D images were gener ated. CAD analysis was submitted and interpreted. High resolution limited left breast ultrasound was performed. COMPARISON: 03/18/2022, 09/26/2018 BREAST PARENCHYMAL COMPOSITION:Not Dense. There are scattered areas of fibroglandular density. FINDINGS: MAMMOGRAPHIC FINDINGS: Mammographic appearance of the breasts is stable from prior exam. No suspicious mass lesion or distor tion. No suspicious masses or calcifications. ULTRASOUND: Vague area of mild hyperechogenicity at the area of palpable concern probably represents focally dens e fibroglandular tissue. No suspicious mass lesion seen. Mildly dilated ducts are present. IMPRESSION: No distinct evidence for malignancy. BI-RADS Category 2: Benign finding(s). Reviewed, dictated and finalized at location . IMPRESSION: No distinct evidence for malignancy. BI-RADS Category 2: Benign finding(s).
--- OUTSIDE RECORDS SUMMARY | 2024-09-23 10:46 | XMS_ITS | Clinical Summary ---
Author Organization [facility] Address [address] [place] [id number] Care Team Providers Care Radiophone Operator Name Role Phone Unavailable Primary Care Provider Unavailabl e Social History Tobacco Use Types Packs/Day Years Used Date Smoking Tobacco: Never Assessed Comments Unknown Sex and Gender Information Value Date Recorded Sex Assigned at Not on file Legal Sex Female 8:28 PM CDT Gender Identity Not on file Sexual Orientation Not on file Plan of Treatment Health Maintenance Due Date Last Done Comments Hepatitis C 09/05/1963 DTaP, Tdap and Td Vaccines ( 1 - Tdap) 09/05/1966 Pneumococcal Vaccine: 50+ Ye ars (1 of 1 - PCV) 09/05/1997 Zoster Vaccines (1 of 2) 09/05/1997 Dexa Scan (General) 09/05/2012 RSV Immunization or 60+ Years (1 - 1-dose 75+ series) 09/05/2022 COVID-19 Vaccine (2023-2 5 season) 2024 Meningococcal B Vaccine Aged Out No l onger eligible based on patient's age to complete this topic Meningococcal Vaccine Aged Out No raudel dulce eligible based on patient's age to complete this topic RSV Immunizations Under 20 Months Aged Out No longer eligible based on patient's age to complete this topic
--- OUTSIDE RECORDS SUMMARY | 2024-09-23 10:47 | XMS_ITS | Continuity of Care Document ---
Author Organization [facility] Address [address] [place] [address] [place] [address] Phone Care Team Providers Care Commercial Lines Assistant Name Role Phone Adin Singer MD Unavailable Unavailable Advance Directives Directive Yes / No Effective Date File Name No Information Encounters Encounter Description Practice Location Reason(s) For Visit Diagnoses Date Provider Providers Copied on Encounter [facility], [id number] [place] [address] [address], [place], [place], [id number], [place] tel:[phone] [facility] No Information Enmanuel Oakley. [address] [place] [address], [address], [place], [address], [place]. tel:[phone] Family History Family Member Type Diagnosis Age At Onset No Information Payers Payer name Insurance type Covered libertarian ID Authoriza tion(s) No Information Social History Type Description Quantity Date Captured Comments Sex Female Smoking Status No Information Chief Complaint And Reason For Visit No Information Reason For Referral Reason For Referral No Information History Of Present Illness Encounter Date Complaint History Of Prese nt Illness No Information Functional Status Date Functional Assessmen t No Information Instructions Date Instruction Additional Infor mation No Information Assessments Type Assessment Date No Information Patient Care Teams Name Effective Dates (start - stop) Status Members No Information
--- OUTSIDE RECORDS SUMMARY | 2024-09-23 10:47 | XMS_ITS | Data Portability ---
Author Organization [place] [facility], Main Office Address [address] [place] [address] Care Team Providers Care Room Service Bellhop Name Role Phone REINA HARRIS Primary Care Provider REINA HARRIS Referring Provider Assessment Encounter Date Assessment Date Assessment LastModified by Organization Details LastModified Time 04/20/2023 04/20/2023 HPI: 77-year-old female came in today for evaluation of right knee pain. She woke 1 week ago with rather severe pain in the knee. She does not recall any activity the day prior could exacerbate her knee. She has had continued symptoms since then. It is moderate to severe and she points more towards the medial joint line where she feels most of the pain. Prior to this she had occasional soreness in the knee but these were usually short-lived episodes that went away very quickly. Patient is on Celebrex 200 mg and has been taking this daily for several years. Physical exam: 77-year-old female she is 4 ft 11 180 lb BMI is 36.4. She has mild effusion in the right knee. Range of motion is from 3-135 degrees. Hip range of motion is full without discomfort. She has xdns-wa-kzuzsccd pain with patellofemoral grind. She has moderate tenderness over the mid medial joint line no posterior medial joint line tenderness. No lateral joint line tenderness. No increased swelling in either lower extremity. Normal stability in the knee. 2+ dorsalis pedis pulse. After ChloraPrep was used on skin 20 mg Kenalog and 3 cc of 0.5% ropivacaine was injected into the right knee. Impression: 77-year-old female who has an acute onset of pain in the medial aspect of the knee that started 1 week ago. She does have severe patellofemoral osteoarthritis in the knee and only very mild medial compartment osteoarthritis. X-ray findings were discussed with her. There is a possibility that this could be just an exacerbation of the arthritis in the knee. The other possibility is that she may have torn the medial meniscus causing her symptoms as well. I discussed treatment options with her. One option is to get an MRI scan for evaluation of the meniscus and possible surgery if needed. After discussing that with her she wished not to have any surgery on the knee if possible. She has had a who has had a medial meniscectomy done in the past and she wishes to avoid surgery. The other option is to treat this as a flare-up of the arthritis in the knee. She is on an excellent anti-inflammatori es I discussed the option of trying a cortisone injection to see if this will quiet down her symptoms and she would like to proceed with that. If she does not feel that the injection gives her satisfactory improvement in 1 week she will call and we will set up an MRI scan and see her back after that. otherwise we will see her back as needed. I also discussed with her that if the shot works very well these can be repeated in the future if she has another flare up and she will keep that in mind. 30 minutes was spent in treatment patient more than half this [id number] conversation [email or web address] Not available 04/20/2023 13:26:04 Plan of Treatment Reminders Order Date Submit Date Provider Last Modified By Organization Details Last Modified Time Details Appointments None recorded. Lab None recorded. Referral None recorded. Procedures injection/a spiration joint/bursa (PROC) - in office procedure, administere d by provider 2022 023 In-Office Order, Internal Use Only DO Not Attach Compendium DO Not Attach Compendium, Do Not Delete/merge, [id number] 3 10:36:02 Surgeries None recorded. Imaging XR, knee 2022 023 [email or web address] [facility] [place], [facility] [facility] [address], [place], [address], 3 15:15:32 Medication Orders Kenalog 10 mg/mL suspension for injection 2022 023 [email or web address] [facility] #[id number], [address] [facility], [place], [place], [id number], 3 15:15:32 ropivacaine (PF) 5 mg/mL (0.5 %) injection solution 2022 023 [email or web address] [facility][id number], [address], [place], [place], [id number], 3 15:15:32 Patient TargetsNo targets recorded. Patient InstructionsNo instructions recorded. Reason for Referral None Reported. Results Created Date Observation Date Name Description Value Unit Range Abnormal Flag Note LastModifiedBy Organization Detail LastModifiedTime 11/06/19 21 XR, shoul arya No observ ation record ed. [id number] [facility] [address], [place], [address], 07/12/2022 13:33:34 11/17/19 21 11/13/2020 MRI, shoul arya, w/o contr ast No observ ation record ed. [id number] [facility] [address] [address], [place], [address], 07/12/2022 13:33:34 04/20/20 23 XR, knee No observ ation record ed. [email or web address] [facility] [address], [place], [address], 04/20/2023 13:22:23 Result Notes None recorded. Problems Name Problem SNOMED Code Status Onset Date Resolution Date Notes Provider Name and Address Organization Details Recorded Time Disorder of shoulder 030649442 Active Not Available [facility] 3 13:30:14 Enthesopat hy of hip region 57867094 Active Not Available [facility] 3 13:30:14 Knee pain Active Not Available [facility] 3 13:30:14 Osteoarthr itis 868033056 Active Not Available [facility] 3 13:30:14 Disorder of bursa of shoulder region 20591033 Active Not Available [facility] 3 13:30:14 Pain of right knee joint 1865518722748 00 Active 2022 GUILLERMO Boggs [place] [facility] [employer] [facility] 3 10:01:13 Problem Notes None recorded. Procedures Surgical History Date Name Laterality Status Provider Name and Address Organization Details Recorded Time Hysterectomy completed GUILLERMO Boggs [facility] [employer] [facility] 04/20/2023 10:00:22 Imaging Results Imaging Date Name Status LastModified by Organiz ation Details LastModified Time 11/05/2020 XR, shoulder completed [id number] [facility] [address] [facility] [address], [place], [address], 07/12/2022 13:33:34 11/13/2020 MRI, shoulder, w/o contrast completed [id number] [facility] [address], [place], [address], 07/12/2022 13:33:34 04/20/2023 XR, knee completed [email or web address] [facility] [address] [facility] [address], [place], [address], 04/20/2023 13:22:23 Procedure Notes None recorded. Medical Equipment None Reported. Allergies Allergen ID Allergen Name Allergen Category Reaction Reaction Severity Criticality Documentation Date Start Date Code Code System Note Provider Name and Address Organization Details Recorded Time 25365 Indocin medicatio n Not available Not available Not available 07/12/2022 5 RxNorm Not Available [facility] 3 13:33:33 24431 Compazine medicatio n Not available Not available Not available 07/12/202245648 6 RxNorm Not Available [facility] 3 13:33:33 Medications Name Sig Start Date Stop Date Status Note LastModified by Organization Details LastModified Time amoxicillin 500 mg capsule DNC 10/13 completed Not Available Not Available Not Available furosemide 40 mg tablet TAKE 1 TABLET BY MOUTH TWICE DAILY active Not Available Not Available No t Available medroxyprog esterone 10 mg tablet TK 1 T PO D FOR 10 DAYS 10/13 completed Not Available Not Available Not Available Qvar 80 mcg/actuati on Metered Aerosol oral inhaler INHALE 2 PUFFS PO BID active Not Available Not Available No t Available potassium chloride ER 10 mEq capsule,ext ended release TAKE 1 CAPSULE BY MOUTH DAILY active Not Available Not Available No t Available prednisone 10 mg tablet 10/13 completed Not Available Not Available Not Available azithromyci n 250 mg tablet TK 2 TS PO AT ONCE TODAY THEN TK 1 T PO ONCE D FOR 4 DAYS 10/13 completed Not Available Not Available Not Available tramadol 37.5 mg-acetamin ophen 325 mg tablet TK 1 TO 2 TS PO Q 8 H PRN 10/13 completed Not Available Not Available Not Available cephalexin 250 mg capsule 11/05 completed Not Available Not Available Not Available hydrocodone 5 mg-acetamin ophen 325 mg tablet TK 1 T PO Q 8 H PRN P 10/13 completed Not Available Not Available Not Available diphenoxyla te-atropine 2.5 mg-0.025 mg tablet 10/13 completed Not Available Not Available Not Available ciprofloxac in 250 mg tablet TK 1 T PO Q 12 H 11/05 completed Not Available Not Available Not Available tramadol 50 mg tablet TAKE 1 TABLET BY MOUTH EVERY 6 HOURS NEEDED FOR PAIN active Not Available Not Available No t Available amoxicillin 500 mg tablet TK 1 T PO QID TAT 10/13 completed Not Available Not Available Not Available Azopt 1 % eye drops,suspe nsion INSTILL 1 DROP IN BOTH EYES TID. 10/13 completed Not Available Not Available Not Available prednisolon e acetate 1 % eye drops,suspe nsion INSTILL 1 DROP IN LEFT EYE TWICE DAILY AND DAILY IN RIGHT EYE active Not Available Not Available No t Available ranitidine 75 mg tablet TK 1 T PO BID 10/13 completed Not Available Not Available Not Available Kenalog 10 mg/mL suspension for injection in office 2022 active [facility][NOTE 3]: 0003- 0494- 20 Not Available Not Available Not Available gemfibrozil 600 mg tablet TAKE 1 TABLET BY MOUTH TWICE DAILY active Not Available Not Available No t Available pantoprazol e 40 mg tablet,chari yed release TAKE 1 TABLET BY MOUTH TWICE DAILY active Not Available Not Available No t Available methimazole 5 mg tablet TK 1 T PO QD 10/13 completed Not Available Not Available Not Available hydrocodone 5 mg-acetamin ophen 500 mg tablet TAKE 1 TO 2 TABLETS PO Q 6 HOURS PRN P 10/13 completed Not Available Not Available Not Available Nasonex 50 mcg/actuati on [place] SPRAY 2 SPRAYS IN BOTH NOSTRILS DAILY 10/13 completed Not Available Not Available Not Available cefprozil 250 mg tablet TK 1 T PO Q 12 H 10/13 completed Not Available Not Available Not Available methylpredn isolone 4 mg tablets in a dose pack FOLLOW PACKAGE DIRECTION S active Not Available Not Available No t Available hydrocodone 10 mg-chlorphe niramine 8 mg/5 mL oral susp extend.rel 12hr TK 1 TEA PO BID PRF COUGH 10/13 completed Not Available Not Available Not Available albuterol sulfate HFA 90 mcg/actuati on aerosol inhaler INHALE 1 PUFF EVERY 4 HOURS NEEDED FOR SHORTNESS OF BREATH OR WHEEZING active Not Available Not Available No t Available methimazole 10 mg tablet TAKE 1 TABLET BY MOUTH EVERY SUNDAY TO SUNDAY THEN 2 TABLETS EVERY SUNDAY active Not Available Not Available No t Available celecoxib 100 mg capsule active Not Available Not Available Not Available metronidazo le 0.75 % topical gel 10/13 completed Not Available Not Available Not Available ramipril 5 mg capsule TAKE 1 CAPSULE BY MOUTH TWICE DAILY active Not Available Not Available No t Available brimonidine 0.15 % eye drops INSTILL ONE GTT IN OU BID 10/13 completed Not Available Not Available Not Available naproxen 500 mg tablet TK 1 T PO BID PRF PAIN 11/05 completed Not Available Not Available Not Available amoxicillin 875 mg-potassiu m clavulanate 125 mg tablet TK 1 T PO Q 12 H 10/13 completed Not Available Not Available Not Available Estrace 0.01% (0.1 mg/gram) vaginal cream USE 1/2 GM VAGINALLY TWICE PER WEEK UTD 10/13 completed Not Available Not Available Not Available escitalopra m 10 mg tablet TAKE 1 TABLET BY MOUTH DAILY active Not Available Not Available No t Available amoxicillin -potassium clavulanate 1,000 mg-62.5 mg tablet,ext. rel 12hr TK 2 TS PO Q 12 H FOR 7 DAYS 11/05 completed Not Available Not Available Not Available ketorolac 0.4 % eye drops INSTILL 1 DROP IN BOTH EYES TID 10/13 completed Not Available Not Available Not Available potassium chloride ER 10 mEq tablet,exte nded release(par t/cryst) TK 1 T PO QD 10/13 completed Not Available Not Available Not Available nitrofurant oin monohydrate /macrocryst als 100 mg capsule TAKE 1 CAPSULE BY MOUTH EVERY 12 HOURS FOR 3 DAYS 11/19 completed Not Available Not Available Not Available fenofibrate 160 mg tablet 10/13 completed Not Available Not Available Not Available lidocaine (PF) 10 mg/mL (1 %) injection solution In office injection administe red by the provider active [facility][NOTE 3]: [id number] 4276- 17 Not Available Not Available Not Available PreviDent 5000 Sensitive 1.1 %-5 % dental paste 10/13 completed Not Available Not Available Not Available MoviPrep 100 gram-7.5 gram-2.691 gram oral powder packet TK UTD 10/13 completed Not Available Not Available Not Available Symbicort 160 mcg-4.5 mcg/actuati on HFA aerosol inhaler INHALE 1 PUFF BID AND RINSE MOUTH AFTER USE 10/13 completed Not Available Not Available Not Available Lipofen 150 mg capsule TK 1 C PO QD 10/13 completed Not Available Not Available Not Available Durezol 0.05 % eye drops INSTILL ONE GTT IN OU D 10/13 completed Not Available Not Available Not Available Suprep Bowel Prep Kit 17.5 gram-3.13 gram-1.6 gram oral solution 11/05 completed Not Available Not Available Not Available ropivacaine (PF) 5 mg/mL (0.5 %) injection solution in office 2022 active Not Available Not Available Not Avai lable Virtussin AC 10 mg-100 mg/5 mL oral liquid TK 5 ML PO Q 4 H PRF COUGH 10/13 completed Not Available Not Available Not Available ProAir RespiClick 90 mcg/actuati on breath activated active Not Available Not Available No t Available BD Ultra-Fine Micro Pen Needle 32 gauge x 1/4 DIRECTED DAILY active Not Available Not Available No t Available Qvar RediHaler 80 mcg/actuati on HFA breath activated aerosol INHALE 2 PUFFS PO BID active Not Available Not Available No t Available Rocklatan 0.02 %-0.005 % eye drops INSTILL 1 DROP IN BOTH EYES EVERY EVENING active Not Available Not Available No t Available Wegovy 1 mg/0.5 mL subcutaneou s pen injector active Not Available Not Available Not Available Wegovy 0.5 mg/0.5 mL subcutaneou s pen injector INJECT 0.5 MG UNDER SKIN EVERY WEEK active Not Available Not Available No t Available Paxlovid 300 mg (150 mg x 2)-100 mg tablets in a dose pack TK 2 NIRMATREL VIR TS AND 1 RITONAVIR T TOGETHER PO BID FOR 5 DAYS BID FOR 5 DAYS active Not Available Not Available No t Available Vitals Date Recorded Body mass index (BMI) Body height Body weight Provider Name and Address Organization Details Last Updated DateTime 11/05/2020 43 kg/m2 152.4 cm 23157.32 g Not Available [facility] 07/12/2022 13:29:59 Date Recorded Body height Provider Name an d Address Organization Details Last Updated DateTime 11/19/2020 152.4 cm Not Available [facility] 3 13:29:58 Date Recorded Body height Provider Name an d Address Organization Details Last Updated DateTime 11/26/2020 152.4 cm Not Available [facility] 13:29:59 Date Recorded Body height Body mass index (BMI) Body weight Provider Name and Address Organization Details Last Updated DateTime 04/20/2023 149.86 cm 36.4 kg/m2 75414.63 g GUILLERMO Boggs [place] [facility] 04/20/2023 10:04:56 Social History Question Answer Notes LastModified by Organizat ion Details LastModified Time Tobacco Smoking Status Never Smoker Not Available [facility] 07/12/2022 13:29:48 How Much Tobacco Do You Smoke? No [id number] Information not available 07/12/2022 Sex: Unknown Functional Status Question Answer Note LastModified by Organizat ion Details LastModified Time What is your level of alcohol consumption? None [id number] Information not available 07/12/2022 Mental Status None recorded. Family History Relationship Description Onset Age of this Age Resolved Age Notes LastModified by Organization Details LastModified Time Brother Heart disease [email or web address] Not available 2022 09:59:51 Maternal Grandmother Diabetes mellitus [email or web address] Not available 2022 10:00:10 Medical History Condition Response ARTHRITIS Y CANCER: SPECIFY Y LUNG DISEASE/DISORDER Y HYPERTENSION Y Gynecological HistoryNo gynecological history recorded. Obstetrics History GPAL:G 0 P 0 0 0 0 Past Encounters Encounter ID Performer Location Encounter Start Date Encounter Closed Date Diagnosis/Indication Diagnosis SNOMED-CT Code Diagnosis ICD10 Code Diagnosis Note [id number] Wilder Moore MD [facility] [address] [place] [address] 11/05/2020 00:00:00 11/05/2020 12:50:01 [id number] Wilder Moore MD [facility] [address] [place] [address] 11/19/2020 00:00:00 12/05/2020 19:30:41 [id number] Wilder Moore MD [facility] [address] [place] [address] 11/26/2020 00:00:00 11/26/2020 14:15:42 [id number] Wilder Moore MD [facility] [address] [place] [address] 04/20/2023 09:33:04 04/20/2023 13:26:43 Pain of right knee joint 3210469353 48283 M25.561 Health Concerns Section Related Observation LastModified by Organization Detai ls LastModified Time None Recorded Concern Status LastModified by Organization Details LastModified Time None Recorded Advance Directives Directive None Recorded Payers Encounter Date Sequence Insurance Name Policy Number Policy Shaver Covered Member ID Shaver Member ID Guarantor Name 04/20/2023 1 [facility] (MEDICARE REPLACEMENT/A DVANTAGE - PPO) [id number] Sarah Dupont [id number] Sarah Dupont OBGyn Episode No OBEpisode recorded.
--- OUTSIDE RECORDS SUMMARY | 2024-09-23 10:47 | XMS_ITS | Referral Summary ---
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 Discharge Disposition: Discharge to home or self care 08/12/2024 11:45 AM CDT Lab [facility] Outpatient Lab at [address] [phone] Hyperlipidemia (Primary Dx); Hypertension 08/12/2024 11:00 AM CDT Office Visit [facility] Diabetes and Endocrinology [address] [place] [phone] Sandra aNranjo NP 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 (Primary Dx) from Last 3 Months Allergies Active Allergy Reactions Criticality Noted Date Comments Cat Dander Indomethacin Headache,Nausea only Low Prochlorperazine Semaglutide (Weight Loss) Other (See comments) Low 02/27/2024 Pt reported Medications potassium chloride ER (potassium chloride ER) 10 mEq CR tablet take 1 capsule (20MEQ) by oral route every day with food 0 0 1 Active cetirizine (ZyrTEC) 10 mg tablet take as needed 0 0 1 Active furosemide (LASIX) 40 mg tablet take 1 tablet (40MG) by oral route every day [address] (PROTONIX) 40 mg EC tablet take 1 tablet (40MG) by oral route twice a day 0 0 1 Active albuterol HFA (PROAIR HFA) 90 mcg/actuation inhaler inhale 2 puff by inhalation route every 4 - 6 hours as needed 0 Inhaler 0 6 Active gemfibrozil (LOPID) 600 mg tablet Take 1 tablet (600 mg total) by mouth daily Active aspirin 81 mg tablet Take 1 tablet (81 mg total) by mouth daily Active traMADol-acetami nophen (ULTRACET) 37.5-325 mg per tablet 0 7 Active brimonidine (ALPHAGAN) 0.15 % ophthalmic solution INSTILL 1 DROP INTO BOTH EYES BID 11 8 Active prednisoLONE acetate (PRED FORTE) 1 % ophthalmic suspension Administer 1 drop into both eyes Active ramipril (ALTACE) 5 mg capsule TK 1 C PO BID 0 8 Active beclomethasone (QVAR) 80 mcg/actuation inhaler INHALE 2 PUFFS PO BID 8 Active fenofibrate (TRIGLIDE) 160 mg tablet fenofibrate 160 mg tablet Active ketorolac (ACULAR LS) 0.4 % drops ketorolac 0.4 % eye drops INSTILL 1 DROP IN BOTH EYES TID Active cholecalciferol (VITAMIN D-3) 2000 unit tablet daily Act mustapha calcium acetate,phosphat bind, (PHOSLO) 667 mg tablet Take 1 tablet (667 mg total) by mouth daily Active acetaminophen ER (TYLENOL) 650 mg 8 hr tabletIndication s:Arthritic Pain Take 2 tablets (1,300 mg total) by mouth daily Active Rocklatan 0.02-0.005 % drops INSTILL 1 DROP IN BOTH EYES EVERY EVENING 2 Active celecoxib (CeleBREX) 100 mg capsule TAKE 1 CAPSULE(100 MG) BY MOUTH TWICE DAILY 60 capsule 2 4 Active ROPivacaine (NAROPIN) 5 mg/mL (0.5 %) injection in office 3 Active methIMAzole (TAPAZOLE) 10 mg tabletIndication s: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 TAKE 1 TABLET BY MOUTH EVERY SUNDAY TO SUNDAY, 2 TABLETS EVERY SUNDAY & SUNDAY 270 tablet 3 5 Active Active Problems Problem Noted Date Diagnosed Date Gastroesophageal reflux disease 07/30/2020 Overview (07/30/2020): Added automatically from request for surgery [id number] Screening for malignant neoplasm of colon 2020 Overview (06/28/2020): Added automatically from request for surgery [id number] Ulcer of intestine 07/17/2019 Overview (07/17/2019): Added automatically from request for surgery [id number] BMI 40.0-44.9, adult 10/09/2017 Chest pain 01/17/2017 Morbid obesity with BMI of 45.0-49.9, adult 10/2016 Assessment & Plan (02/08/2023 10:17 AM CDT): Continue Wegovy ( Rx for semaglutide was sent since Wegovy has not been available ) Lung nodules 10/06/2015 Uncomplicated asthma 10/06/2015 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 Currently taking methimazole 10mg daily since 02/2024. States that she feels better. Will update TFTs today. Does not mychart. Verified phone #/address to contact re: results. Aware that we may raise back to M-Sunday 10mg, 20mg on [place]. Assessment & Plan (02/27/2024 11:02 AM CDT): Chronic problem. Currently taking methimazole 10mg Sunday-Sunday & 20mg on Sunday. Will update TFTs today. Does not mychart. Verified phone #/address to contact re: results. Aware that if TSH remains suppressed--we will increase methimazole dose. Assessment & Plan (09/04/2023 12:52 PM CDT): Chronic, stable. Update TFTs. Continue Tapazole. Probably will need to adjust the dose according with TFTs Assessment & Plan (02/08/2023 10:17 AM CDT): Chronic, not well controlled Update TFTs Will adjust dose of methimazole, if indicated Assessment & Plan (02/07/2022 11:26 AM CDT): Continue current dose of Tapazole 10 mg 5 days, 20 mg 2 days Recheck labs in 6 months. Assessment & Plan (10/14/2020 12:45 PM CDT): Continue tapazole, 10 mg 5 days a week, 20 mg on the weekends Recheck labs in 2 months F/u in 6 m Assessment & Plan (04/15/2020 5:02 PM [employer] VICE PRESIDENT): Thyroid function tests requested. Will adjust dose of Tapazole accordingly Assessment & Plan (10/09/2019 2:21 PM CDT): Check TFT's Adjust dose of tapazole as indicated 6 m f/u Assessment & Plan (02/13/2019 10:15 AM CDT): Will check thyroid function tests. Will adjust dose of Tapazole accordingly Assessment & Plan (08/08/2018 1:24 PM CDT): Take Tapazole, 10 mg daiy , take 2 tab ( 20 mg ) on sundays. Repeat labs in about 2 months. Assessment & Plan (01/24/2018 10:07 AM CDT): Check thyroid function tests. Adjust dose of Tapazole accordingly If persistent palpitations, needs to see PCP for an EKG and probably holter monitoring. Assessment & Plan (10/09/2017 12:30 PM CDT): Recheck TFT's Patient to double check the dose of Tapazole she is currently taking. If still elevated, will consider HASSAN ablation Pt understands and agrees Assessment & Plan (04/26/2017 1:35 PM [facility] VICE PRESIDENT): Check thyroid function tests. Adjust dose of Tapazole accordingly Risk of agranulocytosis discussed. Call in case of fever,to have a CBC done Assessment & Plan (12/28/2016 2:41 PM CDT): Continue Tapazole, 10 mg dailydingly Risk of agranulocytosis discussed. Call in case of fever,to have a CBC done HASSAN recommend Pt to think about it. Arm pain 11/10/2011 Back pain 11/10/2011 Hyperlipidemia 11/10/2011 Hypertension 11/10/2011 KARYN (obstructive sleep apnea) 11/10/2011 TIA (transient ischemic attack) 11/10/2011 Abdominal hernia 07/17/2011 Social History Tobacco Use Types Packs/Day Years Used Date Smoking Tobacco: Never Smokeless Tobacco: Never Alcohol Use Standard Drinks/Week Comments No 0 (1 standard drink = 0.6 oz pur e alcohol) AUDIT-C Answer Date Recorded Q1: How often do you have a drink containing alc ohol? Monthly or less 08/12/2020 Q2: How many drinks containi ng alcohol do you have on a typical day when you are drinking? 1 or 2 08/12/2020 Q3: How often do you have si x or more drinks on one occasion? Never 08/12/2020 PHQ-2 Answer Date Recorded PHQ-2 Total Score (If total score is 3 or more points, staff should administer the PHQ-9) 0 02/07/2022 Comments No Sex and Gender Information Value Date Recorded Sex Assigned at Not on file Legal Sex Female 7:59 PM [facility] [facility] VICE PRESIDENT Gender Identity Not on file Sexual Orientation Not on file Last Filed Vital Signs Vital Sign Reading Time Taken Comments Blood Pressure 128/64 08/12/2024 11:37 AM CDT Pulse 72 08/12/2024 10:52 AM CDT Temperature 36.4 C (97.5 F) 08/12/2020 1:45 PM CDT Respiratory Rate 18 08/12/2024 10:52 AM CDT Oxygen Saturation 98% 08/12/2020 1:45 PM CDT Inhaled Oxygen Concentration - - Weight 83.5 kg (184 lb) 08/12/2024 10:52 AM CDT Height 152.4 cm (5') 08/12/2024 10:52 AM CDT Body Mass Index 35.94 08/12/2024 10:52 AM CDT Plan of Treatment Not on file Procedures Procedure Name Priority Date/Time Associated Diagnosis Comments EGFR Routine 08/12/2024 12:00 PM CDT 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 T3, FREE Routine 08/12/2024 12:00 PM CDT 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 73 m2 Comment: Interpretive Data Reference Interval Normal >/= 90 mL/min/1.73m2 Mildly decreased* 60 - 89 mL/min/1.73m2 Mildly to moderately decreased 45 - 59 mL/min/1.73m2 Moderately to severely decreased 30 - 44 mL/min/1.73m2 Severely decreased 15 - 29 mL/min/1.73m2 Kidney Failure < 15 mL/min/1.73m2 *Relative to young adult level Estimated glomerular filtration rate is determined by the 2020 CKD-EPI equation recommended by the National Kidney Foundation (A Unifying Approach to GFR Estimation: Recommendations of the NKF-ASK Task Force on Reassessing the Inclusion of Race in Diagnosing Kidney Disease, JASN 202). The CKD-EPI equation should not be used for patients with unstable renal function and has not been validated in children and those over 70. Current interpretive data was last reviewed 2021. Blood 08/12/2024 12:0 0 PM CDT 08/12/2024 9:08 PM CDT us Sandra Naranjo [facility] LAB BLOOD ORDERABLES Cailin brar Result [facility] [id number] [address] Department [place] [address] * (ABNORMAL) CBC without differential (08/12/2024 12:00 PM CDT) WBC 7.18 3.80 - 9.90 K/cumm Hgb 11.5(L) 11.9 - 15.5 g/dL [facility] Hct 37.1 35.6 - 45.5 % [facility] Plt 294 150 - 400 K/cumm [facility] MPV 10.6 9.1 - 12.3 fL [facility] RBC 4.45 3.90 - 5.20 M/cumm [facility] MCV 83.4 81.3 - 96.4 fL [facility] MCH 25.8(L) 27.1 - 33.3 pg [facility] MCHC 31.0(L) 32.3 - 35.7 g/dL [facility] RDW CV 13.1 11.1 - 14.9 % [facility] RDW SD 39.8 35.7 - 48.1 fL [facility] NRBC abs 0.00 0.00 - 0.01 K/cumm [facility] Blood 08/12/2024 12:0 0 PM CDT 08/12/2024 8:20 PM CDT us Sandraulysses Naranjo [facility] LAB BLOOD ORDERABLES Cailin l Result Performing Organization Address [facility] Co de Phone Number ALICIA [phone] [address] [facility] [place] [address] * T3, free (08/12/2024 12:00 PM CDT) Free T3 3.6 2.0 - 4.4 pg/mL Blood 08/12/2024 12:0 0 PM CDT 08/12/2024 8:20 PM CDT us Sandraulysses Naranjo [facility] LAB BLOOD ORDERABLES Cailin l Result Performing Organization Address [facility] Co de Phone Number [facility] [phone] [address] Department [place] [address] * (ABNORMAL) TSH (08/12/2024 12:00 PM CDT) Thyroid Stimulating Hormone 0.02(L) 0.30 - 4.20 mcIUnit/mL Blood 08/12/2024 12:0 0 PM CDT 08/12/2024 8:20 PM CDT us Sandraulysses Naranjo [facility] LAB BLOOD ORDERABLES Cailin l Result Performing Organization Address [facility] Co de Phone Number [facility] [address] [address] [facility] [place] [address] * T4, free (08/12/2024 12:00 PM CDT) Free T4 1.14 0.90 - 1.70 ng/dL Blood 08/12/2024 12:0 0 PM CDT 08/12/2024 8:20 PM CDT us Sandraulysses Naranjo [facility] LAB BLOOD ORDERABLES Cailin l Result [facility] [address] [address] Department [place] [address] * (ABNORMAL) Comprehensive metabolic panel (08/12/2024 12:00 PM CDT) Sodium 137 135 - 145 mmol/L Potassium, pl 4.4 3.3 - 4.9 mmol/L [facility] Chloride 100 97 - 110 mmol/L [facility] CO2 22 22 - 32 mmol/L [facility] Anion gap 15 2 - 15 mmol/L [facility] BUN 32(H) 6 - 25 mg/dL [facility] Creatinine 1.05 0.60 - 1.10 mg/dL [facility] Glucose 67(L) 70 - 199 mg/dL [facility] Comment: Interpretive Data Fasting glucose >/= 126 mg/dl is diagnostic for diabetes. Fasting is defined as no caloric intake for at least 8 hours. Fasting glucose between 100 mg/dl to 125 mg/dl is diagnostic of prediabetes. In a patient with classic symptoms of hyperglycemia or hyperglycemic crisis, a random glucose >/= 200 mg/dl is diagnostic for diabetes. In the absence of unequivocal hyperglycemia, results should be confirmed by repeat testing. The classification and Diagnosis of Diabetes Diabetes Care 2021; 46: S19-S40. Current interpretive data was last revised 2022. Calcium 9.5 8.5 - 10.3 mg/dL [facility] Bilirubin, total 0.2 0.1 - 1.2 mg/dL [facility] Protein, pl 7.7 6.5 - 8.5 g/dL [facility] Albumin 4.1 3.5 - 5.0 g/dL [facility] Alk phos 131(H) 40 - 130 Units/L [facility] ALT 9 7 - 45 Units/L [facility] AST 25 10 - 45 Units/L [facility] Blood 08/12/2024 12:0 0 PM CDT 08/12/2024 8:20 PM CDT us Sandra Naranjo [facility] LAB BLOOD ORDERAB[place] [address] [address] Department [place] [address] * COLONOSCOPY (07/21/2020 1:53 PM FINANCIAL [employer]STITUTION VICE PRESIDENT) Anatomical Region Laterality Modality Other Narrative Procedure Note Wilder Rios MD - 07/21/2020 1:53 PM CST ENDOSCOPY LAB Patient Name: Sarah Dupont Procedure Date: 07/21/2020 1:53 PM Date of : 1945 Admit Type: Outpatient Age: 74 Gender: Female Attending MD: Wilder Rios M.D. Room: [facility] ENDOSCOPY ROOM 04 Note Status: Finalized Procedure: Colonoscopy Indications: High risk colon cancer surveillance: Personalhistory of colonic polyps, Last colonoscopy: July 2015 Providers: Wilder Rios M.D. Referring MD: Crys Zepeda MD Medicines: Monitored Anesthesia Care Complications: No immediate complications. Estimated Blood Loss: Estimated blood loss was minimal. Procedure: Pre-Anesthesia Assessment: - Immediately prior to administration ofmedications, the patient was re-assessed for adequacy to receive sedatives. - Sedation was administered by an anesthesia professional. The sedation level attained wasmoderate. - The heart rate, respiratory rate, oxygen saturations, blood pressure, adequacy of pulmonary ventilation, and response to care were monitored throughout the procedure. - The physical status of the patient wasre-assessed after the procedure. The benefits, risks and alternatives of theprocedure and sedation were discussed and informed consentwas obtained. All questions were answered. Please referto the signed informed consent document in the medical record. The scope was passed under direct vision.The [id number] was introduced through the anusand advanced to the cecum, identified by appendiceal orifice and ileocecal valve. The colonoscopy was somewhat difficult due to significant looping. Successful completion of the procedure was aided by straightening and shortening the scope to obtainbowel loop reduction and applying abdominal pressure. The patient tolerated the procedure well. The qualityof the bowel preparation was excellent. The quality of the bowel preparation was evaluated using the BBPS ([place] Bowel Preparation Scale) with scores of:Right Colon = 3 (entire mucosa seen well with no residual staining, small fragments of stool or opaqueliquid), Transverse Colon = 3 (entire mucosa seen well withno residual staining, small fragments of stool oropaque liquid) and Left Colon = 3 (entire mucosa seen well with no residual staining, small fragments of stoolor opaque liquid). The total BBPS score equals 9.Bowel prep was administered using a split dose. Findings: Skin tags were found on perianal exam. A 3 mm polyp was found in the transverse colon. The polyp wassessile. The polyp was removed with a jumbo cold forceps. Resection andretrieval were complete. The sigmoid colon and descending colon were moderately tortuous. A 2 mm polyp was found in the sigmoid colon. The polyp was sessile.The polyp was removed with a jumbo cold forceps. Resection and retrieval were complete. A 4 mm polyp was found in the distal sigmoid colon. The polyp was semi-sessile. The polyp was removed with a jumbo cold forceps.Resection and retrieval were complete. A tattoo was seen in the recto-sigmoid colon. The tattoo siteappeared normal. The exam was otherwise without abnormality on direct and retroflexion views. Impression: - Perianal skin tags found on perianal exam. - One 3 mm polyp in the transverse colon, removedwith a jumbo cold forceps. Resected and retrieved. - Tortuous colon. - One 2 mm polyp in the sigmoid colon, removed witha jumbo cold forceps. Resected and retrieved. - One 4 mm polyp in the distal sigmoid colon,removed with a jumbo cold forceps. Resected andretrieved. - A tattoo was seen in the recto-sigmoid colon. The tattoo site appeared normal. - The examination was otherwise normal on directand retroflexion views. Recommendation: - Discharge patient to home. - Resume previous diet and advance diet astolerated. - Continue present medications. - Await pathology results. - Repeat colonoscopy date to be determined after pending pathology results are reviewed for surveillance based on pathology results. - For polyp and cancer prevention: Consider daily aspirin if OK with primary care provider; Calcium, folate, and vitamin D; healthy diet low inprocessed and red meats, exercise regularly, maintain healthy weight. See [facility] Cancer website for moreprevention tips. - Contact Information: During normal business hours (8AM-4PM) - Please call the Nurse Coordinator: [phone]. life skills coach physician after hours, weekends andholidays: [phone] and asked for the [place]-Rectalphysician biodiesel production associate. - Consider upper GI endoscopy/EGD, no obvioussourse for bloating and right lower quadrant pain. - A polyp or polyps were removed during your colonoscopy today. After the pathology result ofthe polyp(s) is reviewed, the doctor who performedyour colonoscopy will recommend follow-up colonoscopy to you based on current guidelines by gastroenterology societies: - If only small hyperplastic polyps from the rectumor sigmoid were removed, repeat the colonoscopy in 10 years. - If 1 or 2 polyps less than 1 cm in size are adenomas, repeat the colonoscopy in 5 years. - If 3 or more polyps are adenomas, repeat the colonoscopy in 3 years. - If there are 10 or more adenomas, repeat the colonoscopy in 1 year. - If any polyp is 10 mm or greater in size, has villous histology or high grade dysplasia,repeat the colonoscopy in 3 years. - If a polyp greater than 2 cm was removed with a piecemeal technique, repeat the colonoscopy in 6 months to be certain that there is no residualpolyp. - Sessile serrated polyps are treated like adenomas for surveillance purposes. Electronically signed by Wilder Rios MD Wilder Rios M.D. 07/21/2020 3:20:16 PM Number of Addenda: 0 Note Initiated On: 07/21/2020 1:53 PM Wilder Rios MD ENDOSCOPY PROCEDURES Final R esult from Last 3 Months or Most Recently Relevant to Health Maintenance Insurance [employer] OPEN ACCESS [facility] MEDICARE [facility] Address: [address] [address] [place] [address] [facility] MEDICARE [facility] MEDIC[facility] Address: [address] [address] [place] [address] [facility] MEDICARE [facility] MED[facility] Address: [address] [address] Advance Directives For more information, please contact: [phone] * Full Code (Latest Code Status on File) Date Activated Date Inactivated Comments 08/12/2020 12:29 PM 08/12/2020 8:24 PM * Full Code Date Activated Date Inactivated Comments 07/21/2020 1:43 PM 07/21/2020 7:53 PM Care Teams Occupational Therapy Assist Relationship Specialty Start Date End Date Crys Zepeda MD PCP - General 08/11/16
--- OUTSIDE RECORDS SUMMARY | 2024-09-23 10:47 | XMS_ITS | Clinical Summary ---
Author Organization [facility] Address [address] [place] [address] Care Team Providers Care Inserting Operator Name Role Phone Crys Zepeda MD Primary Care Provider [phone] Cate Amaro RN Unavailable Derrick Tong MD Unavailable [phone] Source Comments [facility],non-owned Affiliates and Associated Physician Practices is amultiple site organization consisting of ambulatory clinics and hospital sitesin [place], [place], [place] and [place]. This disclosure is being madepursuant to the Care Everywhere program and may not contain all information available regarding this patient. Last updated 18.[facility] Allergies Active Allergy Reactions Criticality Noted Date Comments Prochlorperazine 11/10/2011 Indomethacin 11/10/2011 Headache, nausea Patient takes naprosyn Medications * Be aware that medications may not be up to date on this document. Alwaysverify current medications with the patient. pantoprazole EC (PROTONIX) 20 MG tablet Take 40 mg by mouth 2 times daily. Active prednisoLONE acetate (Pred Forte) 1 % ophthalmic suspension Instill 1 Drop into both eyes 3 times daily. Active aspirin EC (ECOTRIN) 81 MG tablet Take 81 mg by mouth once daily. Active potassium chloride SA (K-DUR) 10 MEQ tablet Take 10 mEq by mouth once daily. Active ramipril (ALTACE) 5 MG capsule Take 5 mg by mouth once daily. Active fenofibrate (LIPOFEN) 150 MG capsule Take 150 mg by mouth daily with breakfast. Active cetirizine (ZYRTEC) 10 MG tablet Take 10 mg by mouth once daily. Active escitalopram (LEXAPRO) 10 MG tabletIndicatio ns:Insomnia Take 10 mg by mouth at bedtime. Indications: Trouble Sleeping Active brimonidine (ALPHAGAN P) 0.15 % ophthalmic solution Instill 1 Drop into both eyes 3 times daily Active methimazole (TAPAZOLE) 10 MG tablet Take 20 mg by mouth once daily Active furosemide (LASIX) 40 MG tablet Take 1 Tab by mouth once daily 1 Tab 0 6 Active traMADol-acetam inophen (ULTRACET) 37.5-325 MG tablet Take 1 tablet by mouth every 6 hours as needed Active beclomethasone HFA (QVAR REDIHALER) 80 MCG/ACT inhaler Inhale 2 (two) puffs by mouth 2 times daily 10.6 g 5 1 Active Albuterol Sulfate (PROAIR RESPICLICK) 108 (90 Base) MCG/ACT Inhale 2 puffs by mouth every 4 hours as needed 1 Each 5 1 Active Additional Information Patient not taking.Reported on 02/14/2022 acetaminophen CR (Tylenol Arthritis Pain) 650 MG tablet Take 1,300 mg by mouth once daily Active celecoxib (CeleBREX) 100 MG capsule Take 100 mg by mouth 2 times daily 2 Active gemfibrozil (Lopid) 600 MG tablet gemfibrozil 600 mg tablet TAKE 1 TABLET BY MOUTH TWICE DAILY Active Active Problems Problem Noted Date Diagnosed Date Uncomplicated asthma 10/06/2015 Lung nodules 10/06/2015 Back pain 11/10/2011 Arm pain 11/10/2011 KARYN (obstructive sleep apnea) 11/10/2011 TIA (transient ischemic attack) 11/10/2011 Hypertension 11/10/2011 Hyperlipidemia 11/10/2011 Immunizations Immunization Administration Dates Next Due INFLUENZA VACCINE, HIGH-DOSE , QUADR. (FLUZONE HIGH-DOSE QUADRIVALENT; 65Y+), 0.7 ML (HD-IIV4) 05/28/2019 INFLUENZA VACCINE, QUADR. (F LUZONE; FLULAVAL; FLUARIX; AFLURIA QUADRIVALENT; 6MO+), 0.5 ML (IIV4) 06/22/2015 Family History Medical History Relation Name Comments Arrhthymia Brother COPD - Chronic Obstructive Pulmonary Disease Father CAD (Coronary Artery Disease) Maternal Grandfather CAD (Coronary Artery Disease) Maternal Uncle Asthma Mother Negative Family History Other Relation Name Status Comments Brother Father Maternal Grandfather Maternal Uncle Alive Mother Other Social History Tobacco Use Types Packs/Day Years Used Date Smoking Tobacco: Never Smokeless Tobacco: Never Tobacco Cessation:Counseling Given: Yes Alcohol Use Standard Drinks/Week Comments Never 0 (1 standard drink = 0.6 oz pur e alcohol) Comments Unknown Sex and Gender Information Value Date Recorded Sex Assigned at Not on file Legal Sex Female 6:26 AM MARKETING MGR Gender Identity Not on file Sexual Orientation Not on file Last Filed Vital Signs Vital Sign Reading Time Taken Comments Blood Pressure 153/75 02/14/2022 10:37 AM CDT Pulse 75 02/14/2022 10:37 AM CDT Temperature 36.7 C (98.1 F) 02/14/2022 10:37 AM CDT Respiratory Rate 20 11/08/2017 10:33 AM CDT Oxygen Saturation 98% 02/14/2022 10:37 AM CDT Inhaled Oxygen Concentration 21% 11/10/2011 1 0:26 PM CDT Weight 95.3 kg (210 lb) 02/14/2022 10:37 AM CDT Height 152.4 cm (5') 02/14/2022 10:37 AM CDT Body Mass Index 41.01 02/14/2022 10:37 AM CDT Plan of Treatment Health Maintenance Due Date Last Done Comments BONE DENSITY TESTING 1945 HEPATITIS C SCREENING 09/01/1965 DTAP/TDAP/TD VACCINES (1 - Tdap) 09/05/1966 PNEUMOCOCCAL VACCINE 50+ (1 of 2 - PCV) 09/05/1966 ZOSTER VACCINE (1 of 2) 09/05/1997 Respiratory Syncytial Virus (RSV) Vaccine Pt: or over 60 yrs (1 - 1-dose 75+ series) 09/05/2022 COVID-19 VACCINE (2023-2 5 season) 2024 DEPRESSION SCREENING 05/14/2024 MEDICARE AWV CALENDAR YEAR 2024 INFLUENZA VACCINE (Season Ended) 2025 05/28/2019, 06/22/2015 HEPATITIS B VACCINE Aged Out No longe r eligible based on patient's age to complete this topic HIB VACCINE Aged Out No longer eligi ble based on patient's age to complete this topic HPV VACCINE Aged Out No longer eligi ble based on patient's age to complete this topic MENINGOCOCCAL (Group B) VACCINE SHARED DECISION-MAKING Aged Out No longer eligible based on patient's age to complete this topic MENINGOCOCCAL GROUPS A/C/Y/W VACCINE Aged Out No longer eligible b ased on patient's age to complete this topic Insurance [facility] MANAGED MEDICARE ADV [facility] MANAGED MEDICARE ADV Advance Directives * FULL RESUSCITATION (Latest Code Status on File) Date Activated Date Inactivated Comments 11/10/2011 1:50 PM 11/12/2011 9:22 AM Care Teams Inserting Operator Relationship Specialty Start Date End Date Crys Zepeda MD [address] [place] [address] PCP - General 11/10/11 Cate Amaro, DOMITILA Loan Servicing Officer 06/22/15 Derrick Tong MD Cardiology 07/21/15
--- OUTSIDE RECORDS SUMMARY | 2024-09-23 10:47 | XMS_ITS | Clinical Summary ---
Author Organization [facility] Address [address] [place] [address] Care Team Providers Care Test Engineering Technician Name Role Phone Crys Zepeda MD Primary Care Provider [phone] Allergies Active Allergy Reactions Criticality Noted Date [...] (07/30/2020): Added automatically from request for surgery [id number] Screening for malignant neoplasm of colon 2020 Overview (06/28/2020): Added automatically from request for surgery [id number] Ulcer of intestine 07/17/2019 Overview (07/17/2019): Added automatically from request for surgery [id number] BMI 40.0-44.9, adult 10/09/2017 Chest pain 01/17/2017 [...] Aware that we may raise back to -Sunday 10mg, 20mg on Sunday. Assessment & Plan (02/27/2024 11:02 AM CDT): [...] m Assessment & Plan (04/15/2020 5:02 PM SPECIAL FORCES ENGINEER SERGEANT): Thyroid function tests requested. Will adjust dose [...] agrees Assessment & Plan (04/26/2017 1:35 PM SPECIAL FORCES ENGINEER SERGEANT): Check thyroid function tests. 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 Discharge Disposition: Discharge to home or self care 08/12/2024 11:45 AM CDT Lab [facility] Outpatient Lab at [address] [phone] Hyperlipidemia (Primary Dx); Hypertension 08/12/2024 11:00 AM CDT Office Visit [facility] Diabetes and Endocrinology [address] [place] [phone] Sandra Naranjo NP 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 (Primary Dx) from Last 3 Months Surgical History Surgery Date Site/Laterality Comments SECTION x2 EYE SURGERY 05/14/2009 - 05/13/2010 Right intraocular lens exchange, vitrectomy COLONOSCOPY DILATION AND CURETTAGE, DIAGNOSTIC / THERAPEUTIC 05/14/2013 - 05/13/2014 VENTRAL HERNIA REPAIR x2 CATARACT EXTRACTION EXTRACAPSULAR W/ INTRAOCULAR LENS IMPLANTATION Bilateral Medical History Medical History Date Comments Disorder of thyroid MVP (mitral valve prolapse) Asthma Sleep apnea PONV (postoperative nausea and vomiting) GERD (gastroesophageal reflux disease) Hypertension Hyperlipidemia Hypothyroidism Claustrophobia History of colon polyps Family History Medical History Relation Name Comments Heart disease Brother Emphysema Father emphysema; Caus e of : emphysema Prostate cancer Father Cancer, pros alberto; Asthma Mother Asthma; Emphysema Mother emphysema; Caus e of : emphysema Other Other No family histo ry of Thyroid disorder; Arthritis Sister 1 Lupus Sister 2 Relation Name Status Comments Brother Alive Father Mother Other Sister 1 Alive Sister 2 Alive Social History Tobacco Use Types Packs/Day Years [...] on file Legal Sex Female 7:59 PM SPECIAL FORCES ENGINEER SERGEANT Gender Identity Not on file Sexual Orientation Not on file Obstetrics History Last Filed Vital Signs Vital Sign Reading [...] 08/12/2024 10:52 AM CDT Plan of Treatment Health Maintenance Due Date Last Done Comments Hepatitis C Screening 1945 Osteoporosis Screening-Bone Density Scan 1945 DTaP/Tdap/Td Vaccine (1 - Tdap) 09/05/1958 Hepatitis B Screening 09/05/1965 Well Visit 65+ 09/05/2012 Zoster Vaccine (2 of 3) 06/25/2014 04/30/2014 Pneumococcal vaccine 65+ (2 of 2 - PPSV23) 03/21/2019 01/24/2019, 02/21/2017 Fall Risk Assessment 08/12/2021 08/12/2020 Depression Screening 02/07/2023 02/07/2022, 10/14/2020, 04/15/2020, Additional history exists Influenza Vaccine (Season Ended) 2025 06/22/19 16, 04/30/2014 Colon Cancer Screening-CT Colonography Discontinued 07/21/2020, 07/19/2015, 04/30/2013 Colon Cancer Screening-Colonoscopy Discontinued 07/21/2020, 07/19/2015, 04/30/2013 Colon Cancer Screening-DNA Stool Discontinued 07/21/2020, 07/19/2015, 04/30/2013 Colon Cancer Screening-FIT Discontinued 07/21, 07/19/2015, 04/30/2013 Colon Cancer Screening-FOBT Discontinued 07/12, 07/19/2015, 04/30/2013 Colon Cancer Screening-Sigmoidoscopy Discontinued 07/21/2020, 07/19/2015, 04/30/2013 Colorectal Cancer Screening Discontinued Procedures Procedure Name Priority Date/Time Associated Diagnosis [...] with no crisis COLONOSCOPY 07/21/2020 1:53 PM SPECIAL FORCES ENGINEER SERGEANT from Last 3 Months or Most Recently [...] of Race in Diagnosing Kidney Disease, JASN 2020). The CKD-EPI equation should not be used for patients with unstable renal function and has not been validated in children and those over 70. Current interpretive data was last reviewed 2021. Blood 08/12/2024 12:0 0 PM CDT 08/12/2024 9:08 PM CDT us Sandra Naranjo LITHOGRAPHIC PHOTOGRAPHER APPRENTICE LAB BLOOD ORDERABLES Cailin brar Result [facility] [address] [place] [address] * (ABNORMAL) CBC without differential (08/12/2024 12:00 PM CDT) WBC 7.18 3.80 - 9.90 K/cumm Hgb 11.5(L) 11.9 - 15.5 g/dL [facility] Hct 37.1 35.6 - 45.5 % [facility] Plt 294 150 - 400 K/cumm [facility] MPV 10.6 9.1 - 12.3 fL [facility] RBC 4.45 3.90 - 5.20 M/cumm [facility] MCV 83.4 81.3 - 96.4 fL [facility] MCH 25.8(L) 27.1 - 33.3 pg [facility] MCHC 31.0(L) 32.3 - 35.7 g/dL [facility] RDW CV 13.1 11.1 - 14.9 % [facility] RDW SD 39.8 35.7 - 48.1 fL [facility] NRBC abs 0.00 0.00 - 0.01 K/cumm [facility] Blood 08/12/2024 12:0 0 PM CDT 08/12/2024 8:20 PM CDT us Sandraulysses Naranjo LITHOGRAPHIC PHOTOGRAPHER APPRENTICE LAB BLOOD ORDERABLES Cailin l Result Performing Organization Address City/[facility]/ZIP Co de Phone Number ALICIA [address] [facility] [place] [address] * T3, free (08/12/2024 12:00 PM CDT) Free T3 3.6 2.0 - 4.4 pg/mL Blood 08/12/2024 12:0 0 PM CDT 08/12/2024 8:20 PM CDT us Sandraulysses Naranjo LITHOGRAPHIC PHOTOGRAPHER APPRENTICE LAB BLOOD ORDERABLES Cailin l Result Performing Organization Address [facility] Co de Phone Number ALICIA [address] [facility] [place] [address] * (ABNORMAL) TSH (08/12/2024 12:00 PM CDT) Thyroid Stimulating Hormone 0.02(L) 0.30 - 4.20 mcIUnit/mL Blood 08/12/2024 12:0 0 PM CDT 08/12/2024 8:20 PM CDT us Sandraulysses Naranjo LITHOGRAPHIC PHOTOGRAPHER APPRENTICE LAB BLOOD ORDERABLES Cailin l Result Performing Organization Address City/[facility] Co de Phone Number ALICIA [address] [facility] [place] [address] * T4, free (08/12/2024 12:00 PM CDT) Free T4 1.14 0.90 - 1.70 ng/dL Blood 08/12/2024 12:0 0 PM CDT 08/12/2024 8:20 PM CDT us Sandra Naranjo LITHOGRAPHIC PHOTOGRAPHER APPRENTICE LAB BLOOD ORDERABLES [place] [address] [address] Department [place] [address] * (ABNORMAL) Comprehensive metabolic panel (08/12/2024 12:00 [...] 08/12/2024 8:20 PM CDT us Sandra Naranjo LITHOGRAPHIC PHOTOGRAPHER APPRENTICE LAB BLOOD ORDERABLES Cailin brar Result ALICIA [address] [facility] Department [place] [address] * COLONOSCOPY (07/21/2020 1:53 PM SPECIAL FORCES ENGINEER SERGEANT) Anatomical Region Laterality Modality Other Narrative Procedure Note Wilder Rios MD - 07/21/2020 1:53 PM CST ENDOSCOPY LAB Patient Name: Sarah Dupont Procedure Date: 07/21/2020 1:53 PM Date of : 1945 Admit Type: Outpatient Age: 74 Gender: Female Attending MD: Wilder Rios M.D. Room: [facility] ENDOSCOPY ROOM 04 Note Status: Finalized [...] The scope was passed under direct vision.The [id number] was introduced through the anusand advanced to [...] bowel preparation was evaluated using the BBPS ([place] Bowel Preparation Scale) with scores of:Right Colon [...] meats, exercise regularly, maintain healthy weight. See [facility] Cancer website for moreprevention tips. - Contact Information: During normal business hours (8AM-4PM) - Please call the Nurse Coordinator: [phone]. tennis camp instructor physician after hours, weekends andholidays: [phone] and asked for the [place]-Rectalphysician production tool engineer. - Consider upper GI endoscopy/EGD, no obvioussourse [...] Most Recently Relevant to [place] [address] [employer] OPEN ACCESS [facility] [place] [address] [facility] [place] [address] [facility] MEDICARE ADVANTAGE Advance Directives For more information, please contact: [phone] * Full Code (Latest Code Status on File) Date Activated Date Inactivated Comments 08/12/2020 12:29 PM 08/12/2020 8:24 PM * Full Code Date Activated Date Inactivated Comments 07/21/2020 1:43 PM 07/21/2020 7:53 PM Care Teams Test Engineering Technician Relationship Specialty Start Date End Date Crys Zepeda MD PCP - General 08/11/16
== END 2024-09-23 10:34 | disposition home or self-care (01) ==
PROVIDERS: PCP Family Medicine; Visit Provider Family Medicine
DX: N63.42 Unspecified lump in left breast, subareolar (principal)
CPT/HCPCS: 76642; 77062; 77066; G0279

== ENCOUNTER 2024-12-15 10:18 | Outpatient (CLI) | payer MEDICARE, SELFPAY ==
--- OUTSIDE RECORDS SUMMARY | 2024-12-15 10:45 | XMS_ITS | Clinical Summary ---
Author Organization [facility] Address [address] [place] [address] Care Team Providers Care Web Pressman Name Role Phone Crys Zepeda MD Primary Care Provider [phone] Allergies Active Allergy Reactions Criticality Noted Date [...] (07/30/2020): Added automatically from request for surgery [id number] Screening for malignant neoplasm of colon 2020 Overview (06/28/2020): Added automatically from request for surgery [id number] Ulcer of intestine 07/17/2019 Overview (07/17/2019): Added automatically from request for surgery [id number] BMI 40.0-44.9, adult 10/09/2017 Chest pain 01/17/2017 [...] m Assessment & Plan (04/15/2020 5:02 PM LOFT WORKER): Thyroid function tests requested. Will adjust dose [...] agrees Assessment & Plan (04/26/2017 1:35 PM LOFT WORKER): Check thyroid function tests. Adjust dose of [...] (transient ischemic attack) 11/10/2011 Abdominal hernia 07/17/2011 Surgical History Surgery Date Site/Laterality Comments SECTION [...] on file Legal Sex Female 7:59 PM LOFT WORKER Gender Identity Not on file Sexual Orientation [...] 10/14/2020, 04/15/2020, Additional history exists Influenza Vaccine (#1) 2025 06/22/2015, 2013 Colon Cancer Screening-CT Colonography Discontinued 07/21/2020, 07/19/2015, 04/30/2013 Colon Cancer Screening-Colonoscopy Discontinued 07/21/2020, 07/19/2015, 04/30/2013 Colon Cancer Screening-DNA Stool Discontinued 07/21/2020, 07/19/2015, 04/30/2013 Colon Cancer Screening-FIT Discontinued 07/21, 07/19/2015, 04/30/2013 Colon Cancer Screening-FOBT Discontinued 07/12, 07/19/2015, 04/30/2013 Colon Cancer Screening-Sigmoidoscopy Discontinued 07/21/2020, 07/19/2015, 04/30/2013 Colorectal Cancer Screening Discontinued Procedures Procedure Name Priority Date/Time Associated Diagnosis Comments COLONOSCOPY 07/21/2020 1:53 PM LOFT WORKER from Last 3 Months or Most Recently Relevant to Health Maintenance Results * COLONOSCOPY (07/21/2020 1:53 PM LOFT WORKER) Anatomical Region Laterality Modality Other Narrative Procedure Note Wilder Rios MD - 07/21/2020 1:53 PM CST ENDOSCOPY LAB Patient Name: Sarah Dupont Procedure Date: 07/21/2020 1:53 PM Date of : 1945 Admit Type: Outpatient Age: 74 Gender: Female Attending MD: Wilder Rios M.D. [facility] 04 Note Status: Finalized Procedure: [...] The scope was passed under direct vision.The [id number] was introduced through the anusand advanced to [...] bowel preparation was evaluated using the BBPS ([place] Bowel Preparation Scale) with scores of:Right Colon [...] meats, exercise regularly, maintain healthy weight. See [facility] Cancer website for moreprevention tips. - Contact Information: During normal business hours (8AM-4PM) - Please call the Nurse Coordinator: [phone]. fisher dip net physician after hours, weekends andholidays: [phone] and asked for the [place]-Rectalphysician millstone cleaner. - Consider upper GI endoscopy/EGD, no obvioussourse [...] Most Recently Relevant to Health Maintenance Insurance [facility] OPEN ACCESS [facility] MEDICARE ADVANTAGE [facility] MEDICARE ADVANTAGE [employer] MEDICARE ADVANTAGE Advance Directives For more information, please contact: [phone] * Full Code (Latest Code Status on File) Date Activated Date Inactivated Comments 08/12/2020 12:29 PM 08/12/2020 8:24 PM * Full Code Date Activated Date Inactivated Comments 07/21/2020 1:43 PM 07/21/2020 7:53 PM Care Teams Web Pressman Relationship Specialty Start Date End Date Crys Zepeda MD PCP - General 08/11/16
--- OUTSIDE RECORDS SUMMARY | 2024-12-15 10:45 | XMS_ITS | Clinical Summary ---
Author Organization [facility] Address [address] [place] [address] Care Team Providers Care Gastrointestinal Technician Name Role Phone Unavailable Primary Care Provider [...]
--- OUTSIDE RECORDS SUMMARY | 2024-12-15 10:45 | XMS_ITS | Clinical Summary ---
Author Organization [facility] Address [address] [place] [address] Care Team Providers Care Manager Completions Name Role Phone Crys Zepeda MD Primary Care Provider [phone] Cate Amaro RN Unavailable [phone] Derrick Tong MD Unavailable [phone] Source Comments [facility],non-owned Affiliates and Associated Physician Practices is amultiple site organization consisting of ambulatory clinics and hospital sitesin [place], [place], [place] and [place]. This disclosure is being madepursuant to the Care Everywhere program and may not contain all information available regarding this patient. Last updated 18.[facility] Allergies Active Allergy Reactions Criticality Noted [...] on file Legal Sex Female 6:26 AM CHARGER TESTER Gender Identity Not on file Sexual Orientation [...] MEDICARE AWV CALENDAR YEAR 2024 INFLUENZA VACCINE (#1) 2025 0, 06/22/2015 HEPATITIS B VACCINE Aged Out No [...] patient's age to [place] [address] [facility] MANAGED MEDICARE ADV [facility] MANAGED MEDICARE ADV Advance Directives * FULL RESUSCITATION (Latest Code Status on File) Date Activated Date Inactivated Comments 11/10/2011 1:50 PM 11/12/2011 9:22 AM Care Teams Manager Completions Relationship Specialty Start Date End Date Crys Zepeda MD [address] [place] [address] PCP - General 11/10/11 Cate Amaro, DOMITILA Vocational Nurse 06/22/15 Derrick Tong MD Cardiology 07/21/15
--- OUTSIDE RECORDS SUMMARY | 2024-12-15 10:45 | XMS_ITS | Referral Summary ---
Author Organization [facility] Address [address] [place] [address] Care Team Providers Care Fig Washer Name Role Phone Crys Zepeda MD Primary Care Provider [phone] Allergies Active Allergy Reactions Criticality Noted Date [...] (07/30/2020): Added automatically from request for surgery [id number] Screening for malignant neoplasm of colon 2020 Overview (06/28/2020): Added automatically from request for surgery [id number] Ulcer of intestine 07/17/2019 Overview (07/17/2019): Added automatically from request for surgery [id number] BMI 40.0-44.9, adult 10/09/2017 Chest pain 01/17/2017 [...] m Assessment & Plan (04/15/2020 5:02 PM SALESPERSON FURS): Thyroid function tests requested. Will adjust dose [...] agrees Assessment & Plan (04/26/2017 1:35 PM SALESPERSON FURS): Check thyroid function tests. Adjust dose of [...] on file Legal Sex Female 7:59 PM SALESPERSON FURS Gender Identity Not on file Sexual Orientation [...] Associated Diagnosis Comments COLONOSCOPY 07/21/2020 1:53 PM SALESPERSON FURS from Last 3 Months or Most Recently Relevant to Health Maintenance Results * COLONOSCOPY (07/21/2020 1:53 PM SALESPERSON FURS) Anatomical Region Laterality Modality Other Narrative Procedure Note Wilder Rios MD - 07/21/2020 1:53 PM [facility] ENDOSCOPY [facility] Patient Name: Sarah Dupont Procedure Date: 07/21/2020 1:53 PM Date of : 1945 Admit Type: Outpatient Age: 74 Gender: Female Attending MD: Wilder Rios M.D. Room: [facility] ENDOSCOPY ROOM 04 Note Status: Finalized [...] The scope was passed under direct vision.The [id number] was introduced through the anusand advanced to [...] bowel preparation was evaluated using the BBPS ([place] Bowel Preparation Scale) with scores of:Right Colon [...] (8AM-4PM) - Please call the Nurse Coordinator: [phone]. yard caller physician after hours, weekends andholidays: [phone] and asked for the Cruger-Rectalphysician integration architect. - Consider upper GI endoscopy/EGD, no obvioussourse [...] Most Recently Relevant to Health Maintenance [place] [address] [address] [facility]AGE Advance Directives For more information, please contact: [phone] * Full Code (Latest Code Status on File) Date Activated Date Inactivated Comments 08/12/2020 12:29 PM 08/12/2020 8:24 PM * Full Code Date Activated Date Inactivated Comments 07/21/2020 1:43 PM 07/21/2020 7:53 PM Care Teams Fig Washer Relationship Specialty Start Date End Date Crys Zepeda MD PCP - General 08/11/16
--- NOTE | 2025-01-05 13:42 | WPDSLEEPSTUD ---
Sleep Study Date of Study: 12/15/24 Ordering Provider: Crys Zepeda MD Interpreting Physician: Elma Eric DO Sleep Study Type: Split Polysomnogram Height: 1.52 m Weight: 83.915 kg Body Mass Index: 36.1 Neck Circumference (inches): 15 [place]: 3 Reason for Sleep Study Needs an updated study for new CPAP equipment Sleep History The patient is a 79-year-old female had a sleep study ordered by her primary care physician for evaluation of sleep apnea. The patient was previously diagnosed with sleep apnea but was unable to tolerate CPAP. She frequently awakens at night with heartburn, belching, or cough. She frequently snores, and it is occasionally loud enough that others complain. She frequently has trouble sleeping when she has a cold. She occasionally wakes up gasping for air throughout the night. She occasionally has breathing problems at night observed by herself or others. She frequently sweats excessively at night. She rarely has heart palpitations or irregular heartbeats during the night. She occasionally falls asleep during the day but never while driving. She denies sleep paralysis and cataplexy. She denies having trouble at school or work due to sleepiness. She frequently experiences vivid dreamlike scenes upon awakening or falling asleep. She denies feeling afraid of going to sleep. She occasionally has nightmares. She occasionally remembers her dreams. She denies having thoughts racing through her mind. She denies feeling sad, depressed, and anxious. She denies having muscular tension. She denies having parts of her body jerk. She denies kicking during the night. She denies having crawling and aching feelings in her legs, but rarely has leg pain during the night. She denies grinding her teeth during sleep and denies awakening with morning jaw pain. She is rarely bothered by pain during the day and rarely awakened by pain during the night. She denies waking up feeling stiff in the morning. She denies waking up with sore or achy muscles. She occasionally wakes up with pain in the neck, spine, or other joints. She goes to bed at 9:30 p.m. on weekdays and at 10:30 p.m. on the weekends. It takes her 20 minutes to fall asleep. She wakes up 3-4 times throughout the night to urinate and is able to fall back asleep within 10 minutes. She wakes up at 6:30 a.m. on weekdays and at 9 a.m. on the weekends. She typically gets 8 hours of sleep per night. She will stay in bed for 5 minutes after waking up in the morning. She currently lives with her . She denies consuming any caffeinated beverages within 2 hours of bedtime. She denies engaging in physical exercise before bedtime. He denies reading before falling asleep. She will watch television before falling asleep. She denies taking naps in afternoon or the evening. She consumes 3 caffeinated beverages per day. She denies alcohol and recreational drug use. [facility] Past Medical History Medical History Hyperlipidemia Colon cancer Essential hypertension Hyperthyroidism Lymphedema Mild persistent asthma without complication Obstructive sleep apnea Pulmonary nodule Surgical History Surgical History History of inguinal hernia repair History of colonoscopy with polypectomy Malignant polyp completely removed. History of cataract extraction History of tonsillectomy History of hysterectomy History of section Family History Family History Mother Asthma Chronic obstructive pulmonary disease Father Chronic obstructive pulmonary disease Sibling Coronary artery disease Hx of CABG Sibling Lupus Social History Social History Social History: Surrogate medical decision maker: Alok (spouse) or Alessandro (son) Cresencio. Code status: Full code. Smoking status: Never smoker Second hand tobacco smoke exposure: Yes (As a child) Alcohol intake: never Substance use: never Substance use type: does not use Do You Feel Safe in your Home?: Yes Lack of Transportation: No Lack of Food: Never True Current Housing: I Have Housing Concerned About Future Housing: No Difficulty Paying Gas/Electric Bills: No Difficulty Paying for Meds: No Currently Unemployed: No Education: Master's Degree or Higher Difficulty w/ Childcare or Family Care: No Living arrangements: with family Occupation/Education: retired Spiritual care concerns: No Agree to blood products: Yes Medications Home Medications ?Medication ?Instructions ?Recorded ?Confirmed ?Type methimazole 10 mg tablet (Tapazole) See Rx Instructions .Route .COMPLEX 10/28/20 12/16/24 History calcium carbonate (Calcium 500) 500 mg PO DAILY 12/19/21 12/16/24 History cholecalciferol (vitamin D3) 25 25 mcg PO DAILY 12/19/21 12/16/24 History mcg (1,000 unit) capsule acetaminophen 650 mg 650 mg PO BID 07/24/22 12/16/24 History tablet,extended release netarsudil 0.02 %-latanoprost 1 drp EACH EYE DAILY 03/06/24 12/16/24 History 0.005 % eye drops (Rocklatan) prednisolone acetate 1 % eye 1 drp EACH EYE DAILY 03/06/24 12/16/24 History drops,suspension furosemide 40 mg tablet 40 mg PO DAILY 08/20/24 12/16/24 History gemfibrozil 600 mg tablet 600 mg PO BID #180 tabs 09/03/24 12/16/24 Rx ramipril 5 mg capsule 5 mg PO BID #60 caps 09/03/24 12/16/24 Rx mupirocin 2 % topical ointment 1 applic topical BID #22 grams 09/09/24 12/16/24 Rx (Centany) prednisone 10 mg tablet 10 mg PO BID #20 tabs 11/20/24 12/16/24 Rx celecoxib 100 mg capsule (Celebrex) 100 mg PO BID #180 caps 11/28/24 12/16/24 Rx pantoprazole 40 mg tablet,delayed 40 mg PO BID #180 tabs 11/28/24 12/16/24 Rx release eszopiclone 2 mg tablet (Lunesta) 2 mg PO QHS PRN insomnia #5 tabs 12/15/24 12/16/24 Rx potassium chloride 10 mEq 10 meq PO DAILY #90 caps 12/21/24 Rx capsule,extended release Sleep Procedure A full night split study using the [employer] multi-channel system recorded the standard physiologic parameters including EEG, EOG, submentalis EMG, anterior tibialis EMG, EKG, body position, nasal and oral airflow using nasal pressure sensor and thermistor.? Respiratory parameters of chest and abdominal movements were recorded with Respiratory Inductance Plethysmography belts. Oxygen saturation was recorded by pulse oximetry. Video monitoring was also performed. Sleep stages, periodic limb movements, and EEG arousals were scored in 30 second epochs according to the criteria of the AASM Scoring Manual. The Apnea-Hypopnea Index was calculated using CMS guidelines for definition of hypopnea with 4% O2 desaturations while scoring respiratory events. Sleep Architecture During the diagnostic portion of the study, the total recording time was 247.6 minutes. The total sleep time was 213.0 minutes. Sleep latency was 17.1 minutes.? REM sleep was not achieved during this portion of the study. Sleep Efficiency was 86.0%. The patient had 19 awakenings for an awakening index of 5.4. Wake after sleep onset time was 17.5 minutes. The patient spent 29.5 minutes, 13.8% of total sleep time in Stage N1. The patient spent 158.0 minutes, 74.2% in Stage N2. The patient spent 25.5 minutes, 12.0% in Stage N3. The patient spent 0.0 minutes, 0.0% in Stage REM sleep. At 01:54:12 AM the patient was placed on PAP treatment and was titrated at pressures ranging from 5 cm H20 up to 9 cm H20. During the treatment portion of the study, the total recording time was 266.9 minutes.? The total sleep time was 262.0 minutes. Sleep latency was 0.0 minutes. REM latency was 241.0 minutes. Sleep Efficiency was 98.2%. Wake after Sleep Onset time was 4.5 minutes. The patient spent 9.5 minutes, 3.6% of total sleep time in Stage N1. The patient spent 204.5 minutes, 78.1% in Stage N2. The patient spent 45.0 minutes, 17.2% in Stage N3. The patient spent 3.0 minutes, 1.1% in Stage REM. Respiratory Analysis During the diagnostic portion of the study, the patient had 17 hypopneas, 4 obstructive apneas and 1 central apnea for an overall Apnea Hypopnea Index of 6.2 events per hour. The REM Apnea Hypopnea Index was 0. The NREM Apnea Hypopnea Index was 6.2. The patient had a Central Apnea Hypopnea Index of 0.3. There was no evidence of Keith-Elizabeth Respirations. During the treatment portion of the study, the patient had 6 hypopneas and 2 obstructive apneas for an overall Apnea Hypopnea Index of 1.8 events per hour. The REM Apnea Hypopnea Index was 0. The NREM Apnea Hypopnea Index was 1.9. The patient had a Central Apnea Hypopnea Index of 0.There was no evidence of Keith-Leizabeth Respirations. The patient was started on CPAP 5 cm H2O and titrated to CPAP 9 cm H2O due to obstructive apneas/hypopneas. The patient was able to fall asleep starting on CPAP 5 cm H2O. The patient was able to achieve REM sleep starting on CPAP 9 cm H2O. The patient was able to achieve a residual AHI less than 5 with both NREM and REM sleep in the supine position on the final pressure. On CPAP 9 cm H2O, the patient spent 24 minutes in NREM and 3 minutes in REM with no respiratory events, resulting in an AHI of 0. The patient had a sleep efficiency of 98.2% on this pressure setting. Arousals During the diagnostic portion of the study, there were a total of 258 arousals for an arousal index of 72.7.? There were 5 respiratory arousals for an index of 1.4. There were 208 periodic limb movement arousals for an index of 58.6.? There were 6 isolated limb movement arousals for an index of 1.7. There were 38 spontaneous arousals for an index of 10.7. During the treatment portion of the study, there were a total of 45 arousals for an index of 10.3.? There was 1 respiratory arousal for an index of 0.2. There were 0 periodic limb movement arousals for an index of 0.? There were 8 isolated limb movement arousals for an index of 1.8. There were 36 spontaneous arousals for an index of 8.2. Periodic Limb Movements During the diagnostic portion of the study, the patient had 7 isolated limb movements with an index of 2.0. The patient had 352 periodic limb movements with an index of 99.2, which is elevated (normal < 15). The patient had a total of 359 limb movements with a total limb movement index of 101.1. During the treatment portion of the study, the patient had 25 isolated limb movements with an index of 5.7. The patient had 5 periodic limb movements with an index of 1.1. The patient had a total of 30 limb movements with a total limb movement index of 6.9. Oximetry Data During the diagnostic portion of the study, the patient had an average oxygen saturation of 93.1% in wake with a minimum oxygen saturation of 71% and a maximum oxygen saturation of 97%. The patient had an average oxygen saturation of 92.2% in sleep with a minimum oxygen saturation of 70.0% and a maximum oxygen saturation of 97.0%. The patient had 46 oxygen desaturations resulting in an Oxygen Desaturation Index of 13.0. The patient spent 12 minutes, 4.8% of total sleep time with an oxygen saturation less than 88%. During the treatment portion of the study, the patient had an average oxygen saturation of 92.4% in wake with a minimum oxygen saturation of 90.0% and a maximum oxygen saturation of 96.0%. The patient had an average oxygen saturation of 92.0% in sleep with a minimum oxygen saturation of 88.0% and a maximum oxygen saturation of 96.0%. The patient had 18 oxygen desaturations resulting in an Oxygen Desaturation Index of 4.1. The patient spent 0.1 minutes of total sleep time with an oxygen saturation less than 88%. Snoring Profile Mild to moderate snoring was present in the baseline portion of the study. The snoring resolved once the patient was titrated to CPAP 7 cm H2O. Cardiac Profile The EKG lead showed normal sinus rhythm. No arrhythmias or premature beats were seen. During the diagnostic portion of the study, the average pulse rate was 70.2 bpm.? The minimum pulse rate was 57.0 bpm. The maximum pulse rate was 89.0 bpm. During the treatment portion of the study, the average pulse rate was 66.2 bpm.? The minimum pulse rate was 55.0 bpm. The maximum pulse rate was 90.0 bpm. EEG Profile No signs of seizure activity seen. Assessment and Plan Assessment and Plan (1) Obstructive sleep apnea: Code(s): G47.33 - Obstructive sleep apnea (adult) (pediatric) Status: Acute Assessment and Plan: In the baseline portion of the study, the patient had an overall AHI of 6.2 with desaturation down to 70%. This is consistent with mild sleep apnea. Due to the patient's hypertension, she qualifies for treatment. The patient was started on CPAP 5 cm H2O and titrated to CPAP 9 cm H2O due to obstructive apneas/hypopneas. I recommend that the patient be prescribed CPAP 9 cm H2O, size small Resmed AirFit N30i nasal mask, CPAP filters/tubing and heated humidity. This should be used with all episodes of sleep.? Compliance should be reviewed within 31-90 days of starting therapy for usage greater than 4 hours per night greater than 70% of the nights. The patient should be asked about symptoms such as?excessive daytime sleepiness, quality of sleep, decreased nocturia, increased?mental functioning such as memory, mood, and concentration. While the patient did have an increased number of periodic limb movements in the baseline portion of the study, the leg movements resolved once the patient was titrated to the optimal pressure setting. Data The data obtained during this sleep study is adequate for interpretation. Certification This sleep study has been reviewed by a board certified sleep medicine physician.
[2025-01-07 10:45] VITALS: BMI 36.1
== END 2024-12-16 07:30 | disposition home or self-care (01) ==
LOC: ANHCSM 10:25
PROVIDERS: PCP Family Medicine; Visit Provider Family Medicine
DX: G47.33 Obstructive sleep apnea (adult) (pediatric) (principal)
CPT/HCPCS: 95811